=== PATIENT | male | born 1965 ===

== ENCOUNTER 2017-06-14 16:25 | Inpatient (IN) | payer OTHER ==
[~2017-06-14] VITALS: Ht 167.6 cm; Wt 79.6 kg
[~2017-06-14 16:25] MED LIST: Norco 5-325 Ta1 EACH PO
[2017-06-14 17:42] LABS: BASOPHILS ABSOLUTE AUTO 0.03 K/mm3 (0.00-0.23); BASOPHILS PERCENT AUTO 1 % (0-2); EOSINOPHILS PERCENT AUTO 0 % (0-6); Hematocrit 43.5 % (37.0-53.0); Hemoglobin 15.4 g/dL (13.5-17.5); IMMATURE GRAN ABSOLUTE AUTO 0.02 K/mm3 (0.00-0.10); IMMATURE GRAN PERCENT AUTO 0 % (0-1); LYMPHOCYTES ABSOLUTE AUTO 0.49 K/mm3 (0.84-5.20); LYMPHOCYTES PERCENT AUTO 10 % (21-46); MONOCYTES ABSOLUTE AUTO 0.49 K/mm3 (0.16-1.47); MONOCYTES PERCENT AUTO 10 % (4-13); Mean Corpuscular HGB 32.2 pg (26.0-34.0); Mean Corpuscular HGB Conc 35.4 g/dL (31.5-36.5); Mean Corpuscular Volume 91 fL (80-100); Mean Platelet Volume 8.9 fL (9.1-12.4); NEUTROPHILS PERCENT AUTO 80 % (41-73); Red Blood Cell Count 4.78 M/mm3 (4.30-5.90); White Blood Cell Count 5.03 K/mm3 (4.00-11.30)
[2017-06-14 17:55] LABS: Platelet Count 44 K/mm3 (150-400)
[2017-06-14 18:24] LABS: Alanine Aminotransfer (ALT/SGP 71 U/L (12-78); Albumin, Blood 3.7 g/dL (3.4-5.0); Albumin/Globulin Ratio 0.9 (0.8-1.8); Alk Phos 74 U/L (50-136); Anion Gap 10 mmol/L (6-16); Aspartate Aminotrans (AST/SGOT 48 U/L (12-37); Bilirubin, Total 0.8 mg/dL (0.1-1.0); Blood Urea Nitrogen 8 mg/dL (8-24); Bun/Creatinine Ratio 10.1 (12.0-20.0); CO2, Blood 29 mmol/L (21-32); Calcium, Blood 8.5 mg/dL (8.5-10.1); Chloride, Blood 97 mmol/L (98-108); Globulin, Blood 4.1 g/dL (2.2-4.0); Glomerular Filtration Rate >60 (60-); Glucose, Blood 247 mg/dL (70-99); Potassium, Blood 3.5 mmol/L (3.5-5.5); Sodium, Blood 136 mmol/L (136-145); Total Protein, Blood 7.8 g/dL (6.4-8.2)
[2017-06-15 06:03] LABS: Hematocrit 37.4 % (37.0-53.0); Hemoglobin 13.1 g/dL (13.5-17.5); Mean Corpuscular Volume 91 fL (80-100); Mean Platelet Volume 8.9 fL (9.1-12.4); RDW Coefficient Variation 11.8 % (11.7-14.2); RDW Standard Deviation 39.6 fL (35.1-46.3); White Blood Cell Count 5.05 K/mm3 (4.00-11.30)
[2017-06-15 06:09] LABS: Platelet Count 27 K/mm3 (150-400)
[2017-06-15 06:22] LABS: Anion Gap 10 mmol/L (6-16); Blood Urea Nitrogen 6 mg/dL (8-24); Bun/Creatinine Ratio 8.9 (12.0-20.0); CO2, Blood 25 mmol/L (21-32); Calcium, Blood 7.3 mg/dL (8.5-10.1); Chloride, Blood 100 mmol/L (98-108); Creatinine, Blood 0.68 mg/dL (0.60-1.20); Glomerular Filtration Rate >60 (60-); Glucose, Blood 272 mg/dL (70-99); Potassium, Blood 3.5 mmol/L (3.5-5.5); Sodium, Blood 135 mmol/L (136-145)
[2017-06-15 06:47] LABS: BAND PERCENT MAN 7 % (0-8); BASOPHILS PERCENT MAN 0 % (0-2); EOSINOPHILS PERCENT MAN 0 % (0-6); LYMPHOCYTES PERCENT MAN 6 % (21-46); METAMYELOCYTE PERCENT MAN 2 % (0-0); MONOCYTES ABSOLUTE MAN 0.35 K/mm3 (0.16-1.47); MONOCYTES PERCENT MAN 7 % (4-13); NEUTROPHILS ABSOLUTE MAN 4.29 K/mm3 (1.96-9.15); SEG NEUTROPHILS PERCENT MAN 78 % (41-73); TOTAL CELLS COUNTED 100
[2017-06-15 10:25] LABS: Influenza A Negative (NEGATIVE); Influenza B Negative (NEGATIVE)
[2017-06-16 09:41] LABS: Source, Urine Clean Catch
[2017-06-16 09:55] LABS: Bilirubin, Urine Neg (Neg); Blood, Urine 2+ (Neg); Glucose Qualitative, Urine 1+ (Neg); Ketones, Urine Neg (Neg); Leukocyte Esterase, Urine Neg (Neg); Nitrite, Urine Neg (Neg); Protein, Urine 2+ (Neg); Urobilinogen, Urine 2+ (Normal)
[2017-06-16] MEDS ORDERED: CHLO25 PO (10:01)
[2017-06-16 10:02] LABS: Appearance, Urine Clear (Clear); Color, Urine Yellow (P-Yellow)
[2017-06-16] MEDS ORDERED: METO50 PO (10:02)
[2017-06-16] MEDS ORDERED: PANT40 PO (10:03)
[2017-06-16] MEDS ORDERED: SUCR1 PO (10:04)
[2017-06-16 10:08] LABS: Bacteria Not Seen /hpf; Red Blood Cells, Urine 0-2 /hpf (0-2); Squamous Epithelial Cells Not Seen /hpf (Few); White Blood Cells, Urine Not Seen /hpf (0-5)
== END 2017-06-16 10:28 | disposition home or self-care (01) | DRG 392 ==
LOC: ER 16:25 → PCU 22:03 → MEDS 22:03 → PCU 23:34 → MEDS 06-15 11:10 → PCU 06-15 12:10
PROVIDERS: Emergency Medicine; Hospitalist; Internal Medicine
DX: K29.20 Alcoholic gastritis without bleeding (principal); D69.6 Thrombocytopenia, unspecified; F10.239 Alcohol dependence with withdrawal, unspecified; E86.0 Dehydration; Z87.891 Personal history of nicotine dependence; Z91.018 Allergy to other foods
CPT/HCPCS: 36415; 71046; 76705; 80048; 80053; 81001; 82947; 83036; 83690; 85025; 87804; 93005; 93010; 96361; 96365; 96366; 96375; 99285; C9113; J0696; J2060; J2405; J3411; J3475; J7030; J7042

== ENCOUNTER 2019-04-16 16:22 | Emergency (ER) | payer OTHER ==
[~2019-04-16] VITALS: Ht 152.4 cm; Wt 72.6 kg
[~2019-04-16 16:22] MED LIST changes: +CHLO25 PO; +METO50 PO; +PANT40 PO; +SUCR1 PO
== END 2019-04-16 17:05 | disposition left against medical advice (07) ==
LOC: ER 16:22
DX: M25.432 Effusion, left wrist (principal); M25.532 Pain in left wrist; Z53.21 Procedure and treatment not carried out due to patient leaving prior to being seen by health care provider
CPT/HCPCS: 73110; 99283-25

== ENCOUNTER 2019-04-17 00:09 | Emergency (ER) | payer OTHER ==
[~2019-04-17] VITALS: Ht 162.6 cm; Wt 65.8 kg
== END 2019-04-17 01:11 | disposition home or self-care (01) ==
LOC: ER 00:09
DX: S63.502A Unspecified sprain of left wrist, initial encounter (principal); F10.10 Alcohol abuse, uncomplicated; F32.9 Major depressive disorder, single episode, unspecified; E11.9 Type 2 diabetes mellitus without complications; F41.9 Anxiety disorder, unspecified; Z87.891 Personal history of nicotine dependence; W19.XXXA Unspecified fall, initial encounter
CPT/HCPCS: 99283-25; A9270

== ENCOUNTER 2020-02-09 20:45 | Emergency (ER) | payer OTHER ==
[~2020-02-09] VITALS: Ht 167.6 cm; Wt 77.1 kg
[2020-02-09 21:47] LABS: BASOPHILS ABSOLUTE AUTO 0.04 K/mm3 (0.00-0.23); BASOPHILS PERCENT AUTO 1 % (0-2); EOSINOPHILS ABSOLUTE AUTO 0.04 K/mm3 (0.00-0.68); EOSINOPHILS PERCENT AUTO 1 % (0-6); Hematocrit 43.9 % (37.0-53.0); Hemoglobin 15.2 g/dL (13.5-17.5); IMMATURE GRAN ABSOLUTE AUTO 0.05 K/mm3 (0.00-0.10); IMMATURE GRAN PERCENT AUTO 1 % (0-1); LYMPHOCYTES ABSOLUTE AUTO 1.79 K/mm3 (0.84-5.20); LYMPHOCYTES PERCENT AUTO 23 % (21-46); MONOCYTES ABSOLUTE AUTO 0.86 K/mm3 (0.16-1.47); MONOCYTES PERCENT AUTO 11 % (4-13); Mean Corpuscular HGB 32.1 pg (26.0-34.0); Mean Corpuscular HGB Conc 34.6 g/dL (31.5-36.5); Mean Corpuscular Volume 93 fL (80-100); Mean Platelet Volume 9.8 fL (9.1-12.4); NEUTROPHILS ABSOLUTE AUTO 4.99 K/mm3 (1.96-9.15); NEUTROPHILS PERCENT AUTO 64 % (41-73); Platelet Count 70 K/mm3 (150-400); RDW Coefficient Variation 11.7 % (11.7-14.2); RDW Standard Deviation 40.3 fL (35.1-46.3); Red Blood Cell Count 4.74 M/mm3 (4.30-5.90); White Blood Cell Count 7.77 K/mm3 (4.00-11.30)
[2020-02-09 21:55] LABS: Ethanol (Alcohol), Blood, Med <3 mg/dL
[2020-02-09 21:56] LABS: Alanine Aminotransfer (ALT/SGP 50 U/L (12-78); Alk Phos 108 U/L (50-136); Anion Gap 18 mmol/L (6-16); Aspartate Aminotrans (AST/SGOT 64 U/L (12-37); Bilirubin, Total 1.7 mg/dL (0.1-1.0); Blood Urea Nitrogen 6 mg/dL (8-24); Bun/Creatinine Ratio 7.3 (12.0-20.0); CO2, Blood 22 mmol/L (21-32); Calcium, Blood 9.1 mg/dL (8.5-10.1); Chloride, Blood 95 mmol/L (98-108); Creatinine, Blood 0.82 mg/dL (0.60-1.20); Glomerular Filtration Rate >60 (60-); Glucose, Blood 237 mg/dL (70-99); Potassium, Blood 2.9 mmol/L (3.5-5.5); Sodium, Blood 135 mmol/L (136-145)
[2020-02-09 22:55] LABS: U Amphetamine Screen Not Detected; U Barbituate Screen Not Detected; U Benzodiazapine Screen Not Detected; U Buprenorphine Screen Not Detected; U Cannabinoids Screen Not Detected; U Cocaine Screen Not Detected; U Methadone Screen Not Detected; U Methamphetamine Screen Not Detected; U Opiates Screen Not Detected; U Oxycodone Screen Not Detected; U Phencyclidine Screen Not Detected; U Propoxyphene Screen Not Detected
[2020-02-10] MEDS ORDERED: CHLO25 PO (01:08)
== END 2020-02-10 01:38 | disposition home or self-care (01) ==
LOC: ER 20:45
PROVIDERS: Student in an Organized Health Care Education/Training Program
DX: F10.239 Alcohol dependence with withdrawal, unspecified (principal); E86.0 Dehydration; E11.9 Type 2 diabetes mellitus without complications; F17.200 Nicotine dependence, unspecified, uncomplicated; Y90.0 Blood alcohol level of less than 20 mg/100 ml
CPT/HCPCS: 36415; 80053; 85025; 93005; 93010; 96361; 96374; 99285-25; A9270; G0480; J2060; J3411; J3475; J7042

== ENCOUNTER 2021-11-13 09:40 | Inpatient (IN) | payer OTHER ==
[~2021-11-13] VITALS: Ht 167.6 cm; Wt 55.7 kg
[~2021-11-13 09:40] MED LIST changes: +ONDA4ODT MM; +Pepcid20 MG PO
[2021-11-13 10:44] LABS: Hematocrit 39.4 % (37.0-53.0); Hemoglobin 13.9 g/dL (13.5-17.5); Mean Corpuscular HGB 32.6 pg (26.0-34.0); Mean Corpuscular HGB Conc 35.3 g/dL (31.5-36.5); Mean Corpuscular Volume 93 fL (80-100); Mean Platelet Volume 10.5 fL (9.1-12.4); Platelet Count 51 K/mm3 (150-400); RDW Coefficient Variation 12.5 % (11.7-14.2); RDW Standard Deviation 42.8 fL (35.1-46.3); Red Blood Cell Count 4.26 M/mm3 (4.30-5.90); White Blood Cell Count 2.96 K/mm3 (4.00-11.30)
[2021-11-13 10:56] LABS: Albumin, Blood 2.3 g/dL (3.4-5.0); Albumin/Globulin Ratio 0.5 (0.8-1.8); Bilirubin, Total 1.8 mg/dL (0.1-1.0); Bun/Creatinine Ratio 22.1 (12.0-20.0); Calcium, Blood 8.5 mg/dL (8.5-10.1); Creatinine, Blood 0.68 mg/dL (0.60-1.20); Globulin, Blood 4.2 g/dL (2.2-4.0); Potassium, Blood 3.6 mmol/L (3.5-5.5); Total Protein, Blood 6.5 g/dL (6.4-8.2)
[2021-11-13 11:14] LABS: BAND PERCENT MAN 75 % (0-8); BASOPHILS PERCENT MAN 0 % (0-2); EOSINOPHILS PERCENT MAN 0 % (0-6); LYMPHOCYTES PERCENT MAN 7 % (21-46); METAMYELOCYTE ABSOLUTE MAN 0.11 K/mm3 (0.00-0.00); METAMYELOCYTE PERCENT MAN 4 % (0-0); MONOCYTES ABSOLUTE MAN 0.11 K/mm3 (0.16-1.47); MONOCYTES PERCENT MAN 4 % (4-13); MYELOCYTE ABSOLUTE MAN 0.11 K/mm3 (0.00-0.00); MYELOCYTE PERCENT MAN 4 % (0-0); NEUTROPHILS ABSOLUTE MAN 2.39 K/mm3 (1.96-9.15); SEG NEUTROPHILS PERCENT MAN 6 % (41-73); TOTAL CELLS COUNTED 100
[2021-11-13 11:29] LABS: Influenza A, PCR NEGATIVE (NEGATIVE); Influenza B, PCR NEGATIVE (NEGATIVE); Resp Syncytial Virus, PCR NEGATIVE (NEGATIVE); SARS-Cov-2 (COVID-19) PCR, MMC NEGATIVE (NEGATIVE)
[2021-11-13 11:53] LABS: Base Excess Venous -4.9 mmol/L; Bicarbonate Venous 20.2 mmol/L (24.0-30.0); PCO2 Venous 39.6 mmHg (38-42); pH Blood Venous 7.33 (7.34-7.37)
[2021-11-13 13:15] LABS: International Normalized Ratio 1.04; Prothrombin Time Results 10.9 Sec (9.7-11.5)
[2021-11-13 13:15] LABS: Source, Urine Clean Catch
[2021-11-13 13:21] LABS: Appearance, Urine Clear (Clear); Bilirubin, Urine Neg (Neg); Blood, Urine 3+ (Neg); Color, Urine Yellow (P-Yellow); Glucose Qualitative, Urine Neg (Neg); Ketones, Urine 3+ (Neg); Leukocyte Esterase, Urine Neg (Neg); Nitrite, Urine Neg (Neg); Protein, Urine 3+ (Neg); Specific Gravity, Urine 1.015 (1.003-1.022); Urobilinogen, Urine 1+ (Normal)
[2021-11-13 13:32] LABS: Bacteria Few /hpf; Granular Casts 0-2 /lpf (0); Hyaline Casts 0-2 /lpf (0-2); Squamous Epithelial Cells Rare /hpf (Few); White Blood Cells, Urine 0-2 /hpf (0-5)
[2021-11-13 13:38] LABS: U Amphetamine Screen Not Detected; U Barbituate Screen DETECTED; U Benzodiazapine Screen Not Detected; U Buprenorphine Screen Not Detected; U Cannabinoids Screen Not Detected; U Cocaine Screen Not Detected; U Methadone Screen Not Detected; U Methamphetamine Screen Not Detected; U Opiates Screen Not Detected; U Oxycodone Screen Not Detected; U Phencyclidine Screen Not Detected; U Propoxyphene Screen Not Detected
--- NOTE | 2021-11-13 14:53 | NUR ---
ADMIT PT ARRIVED TO ICU 10 VIA ER BED AT 1350. PT ARRIVES ON VENT WITH RT AT BEDSIDE. PT IS RESTLESS AND ATTEMPTS TO REACH FOR ETT. PT NOT REDIRECTABLE. PT TRANSFERED TO ICU BED. PT SEDATED WITH PROPOFOL AT 50 MCG/KG/MIN. LR STARTED AT 150 ML/HR. OGT IN PLACE. ROONEY IN PLACE. PT SPOUSE AT BEDSIDE AT THIS TIME. UPDATED BY THIS RN AND DR SOLIS. WILL CONTINUE TO MONITOR.
--- NOTE | 2021-11-13 17:57 | NUR ---
SHIFT SUMMARY PT REMAINS INTUBATED AND SEDATED. VENT SETTINGS AC 16, TV 400, PEEP 10, FIO2 90%. PT WITH MINIMAL ETT SECRETIONS THIS EVENING. PT SEDATED WITH PROPOFOL AT 50 MCG/KG/MIN. PICC PLACED TO ALTHEA THIS SHIFT. LR INFUSING AT 150 ML/HR. OGT REMAINS IN PLACE, TF STARTED AT 10 ML/HR GOAL RATE. ROONEY IN PLACE WITH DARK YELLOW URINE OUTPUT NOTED. SBW RESTRAINTS REMAIN IN PLACE. PT MED WITH ATIVAN PER EMAR, PT LESS RESTLESS THIS EVENING. PT SPOUSE REMAINS AT BEDSIDE. UPDATED AND EXPLAINED PLAN OF CARE IN DETAIL MULTIPLE TIMES THIS SHIFT. WILL CONTINUE TO MONITOR AND REPORT OFF TO ONCOMING RN.
--- NOTE | 2021-11-13 21:58 | NUR ---
MD SOLIS NOTIFIED CRITICAL RESULTS CALLED FROM LAB
[2021-11-14 03:38] LABS: Hematocrit 30.6 % (37.0-53.0); Mean Corpuscular HGB Conc 35.9 g/dL (31.5-36.5); Mean Corpuscular Volume 92 fL (80-100); Mean Platelet Volume 10.9 fL (9.1-12.4); RDW Coefficient Variation 12.9 % (11.7-14.2); RDW Standard Deviation 43.7 fL (35.1-46.3); Red Blood Cell Count 3.33 M/mm3 (4.30-5.90); White Blood Cell Count 2.11 K/mm3 (4.00-11.30)
[2021-11-14 03:41] LABS: Platelet Count 45 K/mm3 (150-400)
[2021-11-14 04:21] LABS: Magnesium, Blood 1.5 mg/dL (1.6-2.4)
[2021-11-14 04:23] LABS: BAND PERCENT MAN 56 % (0-8); BASOPHILS PERCENT MAN 0 % (0-2); EOSINOPHILS PERCENT MAN 0 % (0-6); LYMPHOCYTES ABSOLUTE MAN 0.21 K/mm3 (0.84-5.20); LYMPHOCYTES PERCENT MAN 10 % (21-46); METAMYELOCYTE ABSOLUTE MAN 0.08 K/mm3 (0.00-0.00); METAMYELOCYTE PERCENT MAN 4 % (0-0); MONOCYTES ABSOLUTE MAN 0.04 K/mm3 (0.16-1.47); MONOCYTES PERCENT MAN 2 % (4-13); MYELOCYTE ABSOLUTE MAN 0.04 K/mm3 (0.00-0.00); MYELOCYTE PERCENT MAN 2 % (0-0); NEUTROPHILS ABSOLUTE MAN 1.73 K/mm3 (1.96-9.15); SEG NEUTROPHILS PERCENT MAN 26 % (41-73); TOTAL CELLS COUNTED 100
[2021-11-14 04:47] LABS: Albumin, Blood 1.5 g/dL (3.4-5.0); Albumin/Globulin Ratio 0.5 (0.8-1.8); Bilirubin, Total 1.3 mg/dL (0.1-1.0); Bun/Creatinine Ratio 24.5 (12.0-20.0); Calcium, Blood 6.7 mg/dL (8.5-10.1); Creatinine, Blood 0.78 mg/dL (0.60-1.20); Globulin, Blood 2.9 g/dL (2.2-4.0); Phosphorus, Blood 1.7 mg/dL (2.5-4.9); Potassium, Blood 2.9 mmol/L (3.5-5.5)
[2021-11-14 04:48] LABS: Total Protein, Blood 4.4 g/dL (6.4-8.2)
[2021-11-14 05:03] LABS: PCO2 Arterial 37.4 mmHg (35-45); PO2 Arterial 77.3 mmHg (80-100); pH Blood Arterial 7.45 (7.35-7.45)
--- NOTE | 2021-11-14 06:02 | NUR ---
SEDATED/INTUBATED, PERRLA. LEVOPHED TITRATED TO SYSTOLIC ABOVE 90. VENT MANAGED BY RT. SCANT TO NO ET OR ORAL SECRETIONS. TRICKLE FEED TOLERATING WELL. ROONEY FOR ACCURATE UO. Q2 TURNS BONY PROMINENCES OFFLOADED AND PROTECTED.
--- NOTE | 2021-11-14 07:31 | NUR ---
ASSUME CARE: I have assumed care of this patient.
[2021-11-14 16:00] LABS: Vancomycin, Trough 15.5 ug/mL (5.0-10.0)
--- NOTE | 2021-11-14 16:09 | NUR ---
Spiritual Care - Nurse/Pt. Request Pt. is intubated and non responsive. Spouse is present. Facilitated a life review with spouse, and at the spouses request prayed for the Pt. Spouse displayed evidence of engagement and trust. Spouse verbalized gratitude for the spiritual care visit.
--- NOTE | 2021-11-14 19:21 | NUR ---
SHIFT SUMMARY: NEURO: sedated on 55 propofol. pupils PERLLA. one dose of PRN ativan 2mg given. CARDIAC: sinus tachy. currently on 2 mcg/min of levophed RESPIRATORY: FiO2 currently at 70%. GI/: 850mls rosmery urine out of dickerson. rectal tube placed for liquid stool PSYCH/SOCIAL: at bedside and supportive throughout the day.
[2021-11-15 02:11] LABS: Hematocrit 29.8 % (37.0-53.0); Hemoglobin 10.9 g/dL (13.5-17.5); Mean Corpuscular HGB 33.5 pg (26.0-34.0); Mean Corpuscular HGB Conc 36.6 g/dL (31.5-36.5); Mean Corpuscular Volume 92 fL (80-100); Mean Platelet Volume 12.3 fL (9.1-12.4); NRBC ABSOLUTE 0.03 K/mm3 (0.00-0.02); NRBC Auto 0.6 /100 WBC (0.0-0.2); RDW Coefficient Variation 13.2 % (11.7-14.2); RDW Standard Deviation 44.1 fL (35.1-46.3); Red Blood Cell Count 3.25 M/mm3 (4.30-5.90); White Blood Cell Count 4.98 K/mm3 (4.00-11.30)
[2021-11-15 02:20] LABS: Platelet Count 48 K/mm3 (150-400)
[2021-11-15 02:32] LABS: Albumin, Blood 1.2 g/dL (3.4-5.0); Albumin/Globulin Ratio 0.4 (0.8-1.8); BAND PERCENT MAN 32 % (0-8); BASOPHILS PERCENT MAN 0 % (0-2); Bilirubin, Total 1.9 mg/dL (0.1-1.0); Bun/Creatinine Ratio 26.3 (12.0-20.0); Calcium, Blood 6.9 mg/dL (8.5-10.1); Creatinine, Blood 0.68 mg/dL (0.60-1.20); EOSINOPHILS ABSOLUTE MAN 0.09 K/mm3 (0.00-0.68); EOSINOPHILS PERCENT MAN 2 % (0-6); LYMPHOCYTES ABSOLUTE MAN 0.14 K/mm3 (0.84-5.20); LYMPHOCYTES PERCENT MAN 3 % (21-46); METAMYELOCYTE ABSOLUTE MAN 0.09 K/mm3 (0.00-0.00); METAMYELOCYTE PERCENT MAN 2 % (0-0); MONOCYTES ABSOLUTE MAN 0.14 K/mm3 (0.16-1.47); MONOCYTES PERCENT MAN 3 % (4-13); MYELOCYTE ABSOLUTE MAN 0.14 K/mm3 (0.00-0.00); MYELOCYTE PERCENT MAN 3 % (0-0); Magnesium, Blood 1.7 mg/dL (1.6-2.4); NEUTROPHILS ABSOLUTE MAN 4.33 K/mm3 (1.96-9.15); Potassium, Blood 3.3 mmol/L (3.5-5.5); SEG NEUTROPHILS PERCENT MAN 55 % (41-73); TOTAL CELLS COUNTED 100; Total Protein, Blood 4.2 g/dL (6.4-8.2)
--- NOTE | 2021-11-15 06:43 | NUR ---
UNEVENTFUL NIGHT. INTUBATED/SEDATED. LEVO TITRATED OFF. LUNGS CLEAR VENT MANAGED BY RT. TF AT GOAL. RECTAL TUBE IN PLACE. HYPOACTIVE BT ALL QUAD. ROONEY FOR ACCURATE UO. Q2 TURNS BONY PROMINENCES OFFLOADED AND PROTECTED. SCD ON. ELECTROLYTE REPLACED PER
--- NOTE | 2021-11-15 08:03 | NUR ---
ASSUMED CARE PT. REMAINS SEDATED AND INTUBATED AT THIS TIME. PT. S/O SLEEPING AT BEDSIDE. PT. WITHDRAWLS FROM PAINFUL STIMULI, AND GRIMACE NOTED WITH ORAL CARE. BILAT WRIST RESTRAINTS IN PLACE TO PROTECT TUBES AND LINES. PT. VSS THIS AM, LEVOPHED GTT TITRATED OFF ON NOC SHIFT. PT. CONTINUES WITH PROPOFOL INFUSING FOR SEDATION. ROONEY TEMP PROBE IN PLACE, AFEBRILE THIS AM. CLEAR RACQUEL URINE DRAINING TO GRAIVTY. RECTAL TUBE IN PLACE, DRAINING DARK BROWN LIQUID STOOL. ALL NEEDS MET AT THIS TIME.
--- NOTE | 2021-11-15 10:00 | NUR ---
DR. FLORES IN TO EVAL PT. PEEP DECREASED TO [address] FLORES, PT TOLERATING WELL. FIO2 REMAINS AT 45%. PT. UPDATED ON PT CONDITION AND PLAN OF CARE. VSS AT THIS TIME.
[2021-11-15 14:18] LABS: Phosphorus, Blood 1.7 mg/dL (2.5-4.9); Potassium, Blood 3.3 mmol/L (3.5-5.5)
--- NOTE | 2021-11-15 15:26 | NUR ---
DECREASED SEDATION PROPOFOL PLACED ON STAND BY FOR NEURO EVAL, PT ATTEMPTING TO OPEN EYES, TREMORS NOTED TO BILAT UE. PT UNABLE TO FOLLOW MOZAMBICAN AND YORUBA COMMANDS AT THIS TIME. HR INCREASING AND RR INCREASING TO MID 30S. PT PROPOFOL RESTARTED AFTER 60MIN.
--- NOTE | 2021-11-15 17:58 | NUR ---
SHIFT SUMMARY PT REMAINS SEDATED AND INTUBATED. NO ACUTE CHANGES T/O SHIFT. PT. REMAINS OFF OF PRESSORS AND ANTIBIOTICS CHANGED PER DR. FLORES. PT. VSS T/O SHIFT. ROONEY REMAINS IN PLACE FOR ACCURATE I&O DRAINING TO GRAVITY, RECTAL TUBE IN PLACE CONTINUES WITH LIQUID STOOL. TF INFUSING. FAMILY AT BEDSIDE T/O DAY. REPORT TO ONCOMING RN.
[2021-11-16 04:27] LABS: BASOPHILS ABSOLUTE AUTO 0.07 K/mm3 (0.00-0.23); BASOPHILS PERCENT AUTO 1 % (0-2); Hematocrit 31.3 % (37.0-53.0); Mean Corpuscular HGB 32.4 pg (26.0-34.0); Mean Corpuscular HGB Conc 35.1 g/dL (31.5-36.5); Mean Corpuscular Volume 92 fL (80-100); Mean Platelet Volume 11.4 fL (9.1-12.4); Platelet Count 52 K/mm3 (150-400); RDW Coefficient Variation 13.7 % (11.7-14.2); RDW Standard Deviation 46.6 fL (35.1-46.3); Red Blood Cell Count 3.39 M/mm3 (4.30-5.90); White Blood Cell Count 6.59 K/mm3 (4.00-11.30)
[2021-11-16 04:35] LABS: EOSINOPHILS ABSOLUTE AUTO 0.04 K/mm3 (0.00-0.68); EOSINOPHILS PERCENT AUTO 1 % (0-6); IMMATURE GRAN ABSOLUTE AUTO 0.62 K/mm3 (0.00-0.10); IMMATURE GRAN PERCENT AUTO 9 % (0-1); LYMPHOCYTES ABSOLUTE AUTO 0.42 K/mm3 (0.84-5.20); LYMPHOCYTES PERCENT AUTO 6 % (21-46); MONOCYTES ABSOLUTE AUTO 0.18 K/mm3 (0.16-1.47); MONOCYTES PERCENT AUTO 3 % (4-13); NEUTROPHILS ABSOLUTE AUTO 5.26 K/mm3 (1.96-9.15); NEUTROPHILS PERCENT AUTO 80 % (41-73)
[2021-11-16 04:42] LABS: Albumin, Blood 1.2 g/dL (3.4-5.0); Albumin/Globulin Ratio 0.4 (0.8-1.8); Bilirubin, Total 1.9 mg/dL (0.1-1.0); Bun/Creatinine Ratio 30.3 (12.0-20.0); Calcium, Blood 7.3 mg/dL (8.5-10.1); Creatinine, Blood 0.66 mg/dL (0.60-1.20); Globulin, Blood 3.4 g/dL (2.2-4.0); Magnesium, Blood 1.5 mg/dL (1.6-2.4); Phosphorus, Blood 1.9 mg/dL (2.5-4.9); Potassium, Blood 3.6 mmol/L (3.5-5.5); Total Protein, Blood 4.6 g/dL (6.4-8.2)
[2021-11-16 05:35] LABS: BAND PERCENT MAN 7 % (0-8); BASOPHILS PERCENT MAN 0 % (0-2); EOSINOPHILS PERCENT MAN 0 % (0-6); LYMPHOCYTES ABSOLUTE MAN 0.32 K/mm3 (0.84-5.20); LYMPHOCYTES PERCENT MAN 5 % (21-46); METAMYELOCYTE ABSOLUTE MAN 0.13 K/mm3 (0.00-0.00); METAMYELOCYTE PERCENT MAN 2 % (0-0); MONOCYTES ABSOLUTE MAN 0.13 K/mm3 (0.16-1.47); MONOCYTES PERCENT MAN 2 % (4-13); NEUTROPHILS ABSOLUTE MAN 5.99 K/mm3 (1.96-9.15); SEG NEUTROPHILS PERCENT MAN 84 % (41-73); TOTAL CELLS COUNTED 100
--- NOTE | 2021-11-16 06:36 | NUR ---
INTUBATED/SEDATED. SEDATION TITRATED DOWN TOLERATED. LUNGS CLEAR VENT MANAGED BY RT. TF AT GOAL. RECTAL TUBE IN PLACE. HYPOACTIVE BT ALL QUAD. ROONEY FOR ACCURATE UO. Q2 TURNS BONY PROMINENCES OFFLOADED AND PROTECTED. SCD ON.
--- NOTE | 2021-11-16 09:00 | NUR ---
ASSUMED CARE OF PT THIS AM PT. REMAINS SEDATED AND INTUBATED. PT. PROPOFOL CURRENTLY REDUCED AND INFUSING AT 25MCG/KG/HR. PT. GRIMACES WITH ORAL CARE. PT. VSS THIS AM. FAMILY REMAIN AT BEDSIDE. BILAT WRIST RESTRAINTS IN PLACE FOR SAFETY WITH ETT. PT. HAS OG IN INFUSING TF WITH MINIMAL RESIDUAL <10ML REINSTILLED THIS AM. ORAL TEMP PROBE IN PLACE, TEMP 100.1 THIS AM, TYLENOL GIVEN PER DRPamella ORDER. PT. CONTINUES WITH RECTAL TUBE DRAINING LIQUID BROWN STOOL AND ROONEY DRAINING RACQUEL URINE TO GRAVITY.
--- NOTE | 2021-11-16 17:49 | NUR ---
SHIFT SUMMARY PT. REMAINS SEDATED AND INTUBATED. PROPOFOL CONTINUES INFUSING AT 20MCG/KG/MIN. PT. GRIMACES AND OCCCASIONALLY COUGHS BUT APPEARS COMFORTABLE. NEW SET OF BLOOD CULTURES DRAWN THIS SHIFT. PT. TMAX 101.1, TYLENOL ADMIN TWICE THIS SHIFT AND FAN PLACED AT BEDSIDE. FIO2 DECREASED TO 30% THIS SHIFT, ALL OTHER VENT SETTINGS UNCHANGED, INCREASED SPUTUM SUCTIONED THIS SHIFT FROM ETT. ALL NEEDS MET AT THIS TIME. REPORT TO ONCOMING RN.
[2021-11-17 04:15] LABS: Hematocrit 30.8 % (37.0-53.0); Mean Corpuscular HGB Conc 35.7 g/dL (31.5-36.5); Mean Corpuscular Volume 93 fL (80-100); Mean Platelet Volume 11.4 fL (9.1-12.4); Platelet Count 62 K/mm3 (150-400); RDW Coefficient Variation 14.2 % (11.7-14.2); RDW Standard Deviation 48.5 fL (35.1-46.3); Red Blood Cell Count 3.33 M/mm3 (4.30-5.90); White Blood Cell Count 8.79 K/mm3 (4.00-11.30)
[2021-11-17 04:37] LABS: Bun/Creatinine Ratio 32.4 (12.0-20.0); Calcium, Blood 7.3 mg/dL (8.5-10.1); Creatinine, Blood 0.56 mg/dL (0.60-1.20); Magnesium, Blood 1.4 mg/dL (1.6-2.4); Phosphorus, Blood 2.6 mg/dL (2.5-4.9)
[2021-11-17 04:59] LABS: BAND PERCENT MAN 14 % (0-8); BASOPHILS PERCENT MAN 0 % (0-2); EOSINOPHILS PERCENT MAN 0 % (0-6); LYMPHOCYTES ABSOLUTE MAN 0.43 K/mm3 (0.84-5.20); LYMPHOCYTES PERCENT MAN 5 % (21-46); MONOCYTES ABSOLUTE MAN 0.26 K/mm3 (0.16-1.47); MONOCYTES PERCENT MAN 3 % (4-13); NEUTROPHILS ABSOLUTE MAN 8.08 K/mm3 (1.96-9.15); SEG NEUTROPHILS PERCENT MAN 78 % (41-73); TOTAL CELLS COUNTED 100
--- NOTE | 2021-11-17 06:13 | NUR ---
REMAINED INTUBATED/SEDATED. SEDATION TITRATED TO COMFORT. FAMILY ROOMING IN OVERNIGHT. NORMOTENSIVE AFEBRILE NON-PITTING EDEMA. TF AT GOAL. RECTAL TUBE W/LIQUID BROWN STOOL. ROONEY FOR ACCURATE UO. Q2 TURNS BONY PROMINENCES OFFLOADED AND PROTECTED. DR. HANNA AT BEDSIDE. UPDATED ON PT CONDITION. VERBAL ORDER TITRATE SEDATION TO VENT COMPLIANCE.
--- NOTE | 2021-11-17 08:38 | NUR ---
ASSUMED CARE OF PT THIS AM PT INTUBATED AND SEDATED ON 25MCG/KG/MIN OF PROPOFOL. GRIMACES WITH ORAL CARE, DOES NOT FOLLOW COMMANDS OR OPEN EYES AT THIS TIME. CONTINUES WITH THICK BROWN SECREATIONS FROM ETT. OG TUBE IN PLACE, INFUSING TUBE FEEDING AT GOAL. PT. CONTINUES WITH RECTAL TUBE DRAINING LIQUID STOOL AND ROONEY DRAINING TO GRAVITY. TEMP OF 99.2 THIS AM. VSS. NADN. SLEEPING AT BEDSIDE.
--- NOTE | 2021-11-17 18:09 | NUR ---
SHIFT SUMMARY PT. REMAINS SEDATED AND INTUBATED. VENT SETTINGS ADJUSTED BY DR. HANNA THIS SHIFT, TV 500, PEEP 5, FIO2 30%. PT. TOLERATING WELL. TUBE FEEDING INCREASED TO 40ML/HR PER ORDER. NO ACUTE CHANGES T/O SHIFT. REPORT TO ONCOMING RN.
--- NOTE | 2021-11-18 02:15 | NUR ---
SEDATION PAUSED AROUND 0200 FOR NEURO EVAL NURSING NOTED PT STARTING TO OPEN EYES. SPOUSE AT BEDSIDE - FOLLOWING COMMMANDS - WEAK BILATERAL HAND DEVELOPMENT GEOLOGIST/MOVED TOES ON COMMAND/TRACK SOUNDS WITH VOICE. PT CALM & COOPERATIVE. NO SIGNS OF DISTRESS NOTED AT THIS TIME.
--- NOTE | 2021-11-18 02:26 | NUR ---
SEDATION DECREASED AROUND 0140 FOR NEURO EVAL NURSING NOTED PT STARTING TO OPEN EYES. SPOUSE AT BEDSIDE - FOLLOWING COMMMANDS - WEAK BILATERAL HAND FIBERGLASS BOAT PARTS FINISHER/MOVED TOES ON COMMAND/TRACK SOUNDS WITH VOICE. PT CALM & COOPERATIVE. NO SIGNS OF DISTRESS NOTED AT THIS TIME.
[2021-11-18 04:28] LABS: Hemoglobin 9.7 g/dL (13.5-17.5); Mean Corpuscular HGB 32.6 pg (26.0-34.0); Mean Corpuscular HGB Conc 34.6 g/dL (31.5-36.5); Mean Corpuscular Volume 94 fL (80-100); Mean Platelet Volume 11.1 fL (9.1-12.4); Platelet Count 88 K/mm3 (150-400); RDW Coefficient Variation 14.4 % (11.7-14.2); RDW Standard Deviation 49.7 fL (35.1-46.3); Red Blood Cell Count 2.98 M/mm3 (4.30-5.90); White Blood Cell Count 10.62 K/mm3 (4.00-11.30)
[2021-11-18 04:47] LABS: Albumin/Globulin Ratio 0.3 (0.8-1.8); Bilirubin, Total 2.1 mg/dL (0.1-1.0); Bun/Creatinine Ratio 39.6 (12.0-20.0); Calcium, Blood 7.4 mg/dL (8.5-10.1); Creatinine, Blood 0.53 mg/dL (0.60-1.20); Globulin, Blood 3.8 g/dL (2.2-4.0); Magnesium, Blood 1.4 mg/dL (1.6-2.4); Phosphorus, Blood 2.7 mg/dL (2.5-4.9); Potassium, Blood 3.8 mmol/L (3.5-5.5); Total Protein, Blood 4.8 g/dL (6.4-8.2)
[2021-11-18 04:53] LABS: BAND PERCENT MAN 2 % (0-8); BASOPHILS PERCENT MAN 0 % (0-2); EOSINOPHILS PERCENT MAN 0 % (0-6); LYMPHOCYTES ABSOLUTE MAN 0.42 K/mm3 (0.84-5.20); LYMPHOCYTES PERCENT MAN 4 % (21-46); METAMYELOCYTE ABSOLUTE MAN 0.21 K/mm3 (0.00-0.00); METAMYELOCYTE PERCENT MAN 2 % (0-0); MONOCYTES PERCENT MAN 0 % (4-13); MYELOCYTE PERCENT MAN 1 % (0-0); NEUTROPHILS ABSOLUTE MAN 9.87 K/mm3 (1.96-9.15); SEG NEUTROPHILS PERCENT MAN 91 % (41-73); TOTAL CELLS COUNTED 100
--- NOTE | 2021-11-18 06:20 | NUR ---
INTUBATED/SEDATED. NON-PITTING EDEMA. PRN TYLENOL FOR FEVER - EFFECTIVE. VENT MANAGED BY RT. SCANT SECRETION ET/ORAL SECRETIONS. TF AT GOAL LIQUID STOOL IN RECTAL TUBE. ROONEY FOR ACCURATE UO. Q2 TURNS BONY PROMINENCES OFFLOADED AND PROTECTED. VTE SCD
[2021-11-18 14:12] LABS: C DIFFICILE DNA NEGATIVE (Negative)
--- NOTE | 2021-11-18 15:47 | NUR ---
Spiritual Care attempted. Pt. is intubated and nonresponsive and no visitors are present.
--- NOTE | 2021-11-18 18:00 | NUR ---
SHIFT SUMMARY PT REMAINS INTUBATED WITH VENT SETTINGS AC 16, TV 500, PEEP 5, FIO2 30%. PT WITH COPIOUS ORAL AND ETT SECRETIONS THIS SHIFT. PROPOFOL ON STANDBY SINCE THIS AM. PT HAS REMAINED DROWSEY, BUT DOES AWAKEN TO VERBAL STIMULI. PT ABLE TO SQUEEZE HANDS UPON COMMAND. OGT REMAINS IN PLACE WITH TF INFUSING AT 50 ML/HR GOAL RATE. PICC TO ALTHEA REMAINS C/D/I, NS INFUSING TKO. ROONEY REMAINS IN PLACE WITH LARGE VOLUME OF CLEAR/RACQUEL URINE OUTPUT NOTED. RECTAL TUBE REMAINS IN PLACE WITH LIQUID BROWN OUTPUT NOTED. PT SPOUSE AND OTHER FAMILY MEMBERS AT BEDSIDE THROUGHOUT THE SHIFT. SBW RESTRAINTS REMAIN IN PLACE. VITAL SIGNS STABLE. WILL CONTINUE TO MONITOR AND REPORT OFF TO ONCOMING RN.
--- NOTE | 2021-11-18 19:30 | NUR ---
ASSUMED CARE PT CALM/COOPERATIVE BUT DROWSY. . TKO RUNNING, PROPOFOL ON STANDBY. ROOMING IN. O2 SAT 89%. RT AT BEDSIDE TITRATING FIO2. NO SIGNS OF DISTRESS. PT DENIES PAIN.
[2021-11-18 20:40] LABS: Source, Urine Foley catheter
[2021-11-18 20:43] LABS: Blood, Urine 2+ (Neg); Color, Urine Amber (P-Yellow); Glucose Qualitative, Urine 1+ (Neg); Ketones, Urine Neg (Neg); Leukocyte Esterase, Urine 1+ (Neg); Nitrite, Urine Neg (Neg); Protein, Urine 2+ (Neg); Specific Gravity, Urine 1.015 (1.003-1.022); Urobilinogen, Urine 1+ (Normal)
[2021-11-18 20:44] LABS: Bilirubin, Urine 2+ (Neg)
[2021-11-18 20:49] LABS: Appearance, Urine Hazy (Clear)
[2021-11-18 20:50] LABS: Hyaline Casts 0-2 /lpf (0-2)
[2021-11-18 20:51] LABS: Amorphous Light (0-Heavy); Bacteria Mod /hpf; Red Blood Cells, Urine 0-2 /hpf (0-2); Squamous Epithelial Cells Not Seen /hpf (Few)
--- NOTE | 2021-11-18 21:52 | NUR ---
PT BODY TEMP TRENDED UP TO 101.3 BED BATH PERFORMED. VIC HUGGER IN PLACE NOW. INTERVENTON EFFECTIVE - TEMP TRENDING DOWN
[2021-11-19 03:30] LABS: BASOPHILS ABSOLUTE AUTO 0.05 K/mm3 (0.00-0.23); BASOPHILS PERCENT AUTO 0 % (0-2); EOSINOPHILS ABSOLUTE AUTO 0.04 K/mm3 (0.00-0.68); EOSINOPHILS PERCENT AUTO 0 % (0-6); Hematocrit 27.4 % (37.0-53.0); Hemoglobin 9.3 g/dL (13.5-17.5); IMMATURE GRAN ABSOLUTE AUTO 0.71 K/mm3 (0.00-0.10); IMMATURE GRAN PERCENT AUTO 5 % (0-1); LYMPHOCYTES ABSOLUTE AUTO 0.87 K/mm3 (0.84-5.20); LYMPHOCYTES PERCENT AUTO 7 % (21-46); MONOCYTES ABSOLUTE AUTO 0.38 K/mm3 (0.16-1.47); MONOCYTES PERCENT AUTO 3 % (4-13); Mean Corpuscular HGB 32.3 pg (26.0-34.0); Mean Corpuscular HGB Conc 33.9 g/dL (31.5-36.5); Mean Corpuscular Volume 95 fL (80-100); NEUTROPHILS ABSOLUTE AUTO 10.99 K/mm3 (1.96-9.15); NEUTROPHILS PERCENT AUTO 84 % (41-73); Platelet Count 125 K/mm3 (150-400); RDW Coefficient Variation 14.1 % (11.7-14.2); RDW Standard Deviation 49.3 fL (35.1-46.3); Red Blood Cell Count 2.88 M/mm3 (4.30-5.90); White Blood Cell Count 13.04 K/mm3 (4.00-11.30)
[2021-11-19 03:51] LABS: Magnesium, Blood 1.5 mg/dL (1.6-2.4)
[2021-11-19 03:52] LABS: Bun/Creatinine Ratio 39.9 (12.0-20.0); Calcium, Blood 7.6 mg/dL (8.5-10.1); Creatinine, Blood 0.63 mg/dL (0.60-1.20); Phosphorus, Blood 2.7 mg/dL (2.5-4.9); Potassium, Blood 3.6 mmol/L (3.5-5.5)
--- NOTE | 2021-11-19 05:38 | NUR ---
INTUBATED. AGITATION & PAIN MANAGED ON PRN - EFFECTIVE. FOLLOWING COMMANDS GENERALIZED WEAKNESS. COLLEGE SERVICE OFFICER EQUAL BILATERAL. FEBRILE - PRN TYLENOL, BED BATH, COOL AIR INTERVENTIONS. MD MADE AWARE AT BEDSIDE - GALVAN CULTURE SENT. ABX CHANGED. SCANT ET SECRETIONS, COPIOUS ORAL SECRETIONS. TF AT GOAL 50 ML/HR. HYPOACTIVE BT ALL QUAD. RECTAL TUBE BAG CHANGED 1000CC BROWN LIQUID STOOL. ROONEY DRAINING RACQUEL URINE. VTE LOVENOX. BED BATH BARRIER CREAM Q2 TURNS BONY PROMINENCES OFFLOADED AND PROTECTED. FAMILY ROOMING IN OVERNIGHT - CALM COOPERATIVE IN PT CARE
--- NOTE | 2021-11-19 08:18 | NUR ---
ASSUMED CARE PT. REMAINS INTUBATED, NO PROPOFOL AT THIS TIME, DR. FLORES IN THIS AM TO ASSESS PT, ORDER PLACED FOR PRECEDEX GTT FOR VENT COMPLIANCE. CONTINUES WITH LARGE AMT OF ORAL SECREATIONS. MINIMAL SECREATIONS FROM ETT. PT TEMP 100.8 THIS AM, TYLENOL GIVEN THIS AM, AND FAN PLACED AT BEDSIDE. RECTAL TUBE DRAINING LARGE AMT OF LIQUID STOOL, OG TUBE REMAINS IN PLACE WITH TF VHP AT GOAL OF 50ML/HR. PT ALSO HAS ROONEY DRAINING RACQUEL URINE TO GRAVITY. ALL NEEDS MET AT THIS TIME, PT SLEEPING AT BEDSIDE.
[2021-11-19 09:17] LABS: Albumin/Globulin Ratio 0.2 (0.8-1.8); Bilirubin, Direct 1.5 mg/dL (0.0-0.3); Bilirubin, Indirect 0.5 mg/dL (0.1-0.7)
--- NOTE | 2021-11-19 11:17 | NUR ---
Pt. is sleeping and is not responsive. Spouse is present and welcomes my visit. Spouse is unsettled by the difficult day the pt. had the day before. Pt. had presented a fever on Wednesday. Pt. temps are near normal. Facilitated a life review and assessed family/emotional support for the Pt. and spouse. Spouse displayed evidence of engagement but some anxiety regarding the Pts. condition. Prayed for Pt. and spouse. Spouse verbalized gratitude for the spiritual care visit.
--- NOTE | 2021-11-19 13:24 | NUR ---
ASSUMPTION OF CARE RECEIVED REPORT FROM TIA ASTORGA, ASSUMED CARE OF PATIENT. PATIENT INTUBATED WITH VENT SETTINGS AC 16/500/5/40% WITH SP02 ABOVE 90%. PATIENT COUGHING WITH COPIOUS AMOUNTS OF THICK, WHITE SECRETIONS VIA ETT AND ORALLY SUCTIONED. TF INFUSING, CHANGED TO PIVOT 1.5 WITH RATE AT 25ML/HR AT 1315 PER NEW ORDERS. PRECEDEX INFUSING AT 0.7MCG/KG. ROONEY PATENT AND DRAINING CLEAR, RACQUEL URINE. RECTAL TUBE IN PLACE WITH BROWN, LIQUID DRAINAGE. WILL REVIEW ORDERS AND TREAT PRESCRIBED.
--- NOTE | 2021-11-19 16:20 | NUR ---
REASSESSMENT NO ACUTE CHANGES. FIO2 AT 45% AFTER PERIOD OF SATS IN HIGH 80'S. CURRENTLY ABOVE 90%. CONTINUE TO SUCTION COPIOUS AMOUNTS OF THICK, WHITE SECRETIONS. PIVOT 1.5 AT 25ML/HR CONTINUES VIA OG WITH RESIDUALS OF 30ML REFED. PATIENT OPENS EYES, STRONG COUGH, FURROWED BROW AND BP ELEVATING. FENTANYL GIVEN, WILL REASSESS EFFECT.
[2021-11-19 20:39] LABS: Vancomycin, Trough 15.1 ug/mL (5.0-10.0)
--- NOTE | 2021-11-19 21:32 | NUR ---
ASSUMPTION OF CARE ASSUMED CARE FOR PT. AT 1900. PT. WAS DESATTING UPON NURSE ARRIVAL TO 86%, I SUCTIONED AND BUMPED 02 UP TO 50% FROM 45% AND PT. SATS CAME UP TO 93%. PT. WAS OTHERWISE IN NO DISTRESS, ASSESSMENT FINDINGS DOCUMENTED IN CHART.
[2021-11-20 03:50] LABS: BASOPHILS ABSOLUTE AUTO 0.05 K/mm3 (0.00-0.23); BASOPHILS PERCENT AUTO 0 % (0-2); EOSINOPHILS ABSOLUTE AUTO 0.08 K/mm3 (0.00-0.68); EOSINOPHILS PERCENT AUTO 0 % (0-6); Hematocrit 26.3 % (37.0-53.0); Hemoglobin 9.1 g/dL (13.5-17.5); IMMATURE GRAN ABSOLUTE AUTO 0.51 K/mm3 (0.00-0.10); IMMATURE GRAN PERCENT AUTO 3 % (0-1); LYMPHOCYTES ABSOLUTE AUTO 0.78 K/mm3 (0.84-5.20); LYMPHOCYTES PERCENT AUTO 4 % (21-46); MONOCYTES ABSOLUTE AUTO 0.52 K/mm3 (0.16-1.47); MONOCYTES PERCENT AUTO 3 % (4-13); Mean Corpuscular HGB 32.9 pg (26.0-34.0); Mean Corpuscular HGB Conc 34.6 g/dL (31.5-36.5); Mean Corpuscular Volume 95 fL (80-100); Mean Platelet Volume 10.9 fL (9.1-12.4); NEUTROPHILS ABSOLUTE AUTO 16.09 K/mm3 (1.96-9.15); NEUTROPHILS PERCENT AUTO 89 % (41-73); Platelet Count 176 K/mm3 (150-400); RDW Coefficient Variation 13.6 % (11.7-14.2); RDW Standard Deviation 48.4 fL (35.1-46.3); Red Blood Cell Count 2.77 M/mm3 (4.30-5.90); White Blood Cell Count 18.03 K/mm3 (4.00-11.30)
[2021-11-20 04:08] LABS: International Normalized Ratio 1.05
[2021-11-20 04:21] LABS: Albumin/Globulin Ratio 0.2 (0.8-1.8); Bilirubin, Total 1.7 mg/dL (0.1-1.0); Bun/Creatinine Ratio 33.6 (12.0-20.0); Calcium, Blood 7.3 mg/dL (8.5-10.1); Creatinine, Blood 0.65 mg/dL (0.60-1.20); Globulin, Blood 4.1 g/dL (2.2-4.0); Magnesium, Blood 1.6 mg/dL (1.6-2.4); Phosphorus, Blood 2.5 mg/dL (2.5-4.9); Potassium, Blood 3.5 mmol/L (3.5-5.5); Total Protein, Blood 5.1 g/dL (6.4-8.2)
--- NOTE | 2021-11-20 05:19 | NUR ---
ATTEMPTED WEAN WITH PT THIS MORNING, PT STARTED ON PS OF 15 WAS ONLY ABLE TO PULL TIDAL VOLUMES OF 270S ON THIS TITRATED UP TO PS OF 20 WITH VTS BEING HIGH 300S BUT PT RESPIRATIONS IMMEDIATELY CLIMED INTO THE LOW 40S WITH PT SPO2 STARTING TO DECLINE ON 55% FIO2 WITHOUT GOING BELOW 90 BEFORE WEAN WAS TERMINATED AND PLACED BACK ON PREVIOUS AC SETTINGS. NO DISTRESS NOTED POST ATTEMPT.
--- NOTE | 2021-11-20 05:58 | NUR ---
SHIFT SUMMARY: PT. DID WELL OVERNIGHT, BUT WOULD WAKE UP REGULARLY AND FIGHT THE VENTILATOR SO PUSHES WERE GIVEN TO MAINTAIN VENT COMPLIANCE. PRECEDEX TITRATED DOWN THIS AM FOR RESPIRATORY TO TRY PT. ON SPONTANEOUS BREATHING TRIAL. PT. HR AND BP WERE WNL ALL NIGHT AND PT. STAYED IN NSR. PT. O2 REQUIREMENTS CAME UP OVERNIGHT FROM 40% TO 55% BECAUSE PT. KEPT WAKING UP AND DESATTING. BG HAVE BEEN IN THE 200S AND WERE TREATED PER EMAR. TF ADVANCED, NOT YET AT GOAL BUT RESIDUALS HAVE REMAINED BELOW 100ML ALL NIGHT. BED BATH WAS GIVEN AND ROONEY CARE DONE, ROONEY STILL PATENT WITH 550 UOP. RECTAL TUBE STILL IN PLACE AND DRAINING LESS THAN 50MLS OF OUTPUT. PT. DID HAVE A POSITIVE BLOOD CULTURE COME BACK FOR GRAM + COCCI IN CLUSTERS. PT. RESTING AT THIS TIME.
--- NOTE | 2021-11-20 07:25 | NUR ---
ASSUMPTION OF CARE RECEIVED REPORT FROM SY ASTORGA, ASSUMED CARE OF PATIENT. PATIENT INTUBATED WITH ETT 8.0, 24CM AT THE LIP. VENT SETTINGS AC 16/500/10/60%, SUCTIONED COPIOUS AMOUNTS OF THICK, WHITE SECRETIONS VIA ETT AND ORALLY. TUBE FEEDS PIVOT 1.5 AT 35ML/HR, WILL ADVANCE TO GOAL. ROONEY PATENT AND DRAINING RACQUEL URINE. RECTAL TUBE IN PLACE WITH BROWN LIQUID DRAINAGE. DR. FLORES TO BEDSIDE. REVIEWED PLAN FOR CTA, AND ECHO. PATIENT AWAKENS, COUGHING AGAINST VENT FREQUENTLY. PRECEDEX INCREASED TO 0.7MCG/KG. WILL REVIEW ORDERS AND TREAT PRESCRIBED.
--- NOTE | 2021-11-20 09:34 | NUR ---
CT PATIENT TRANSPORTED TO CT FOR PE STUDY AT 0900. ASSISTED BY RADIOLOGY, RN AND RT. RETURNED TO ROOM AT 0930. TO BEDSIDE AND UPDATED REGARDING ECHO AND CT. PATIENT REMAINED STABLE DURING CT.
--- NOTE | 2021-11-20 16:21 | NUR ---
Upon receiving a request from our [place] hospitalistic Volunteer that the pat's family would like the anointing of the sick performed by a product builder. I contact Father Ismael, who responds immediately and travels to visit the pt. Father prays for and anoints the pt but no family members are present. I will continue to remain available.
--- NOTE | 2021-11-20 17:55 | NUR ---
SHIFT SUMMARY PATIENT AWAKENS, FOLLOWS COMMANDS. ANSWERS QUESTIONS FOR . MEDICATED FOR PAIN CHARTED. PRECEDEX AT 0.7MCG/KG. VENT SETTINGS REMAIN AC 16/500/10/60%. SUCTIONING THICK, WHITE SPUTUM VIA ETT AND ORALLY. CT AND ECHO COMPLETED. TF AT GOAL OF 40ML/HR. DR. FLORES UPDATED PATIENT'S OF CHANGES AND CURRENT PLAN OF TREATMENT. ROONEY AND RECTAL TUBE IN PLACE. WILL REPORT TO ONCOMING RN.
[2021-11-20 20:47] LABS: Vancomycin, Trough 22.3 ug/mL (5.0-10.0)
[2021-11-21 04:03] LABS: BASOPHILS ABSOLUTE AUTO 0.05 K/mm3 (0.00-0.23); BASOPHILS PERCENT AUTO 0 % (0-2); EOSINOPHILS ABSOLUTE AUTO 0.12 K/mm3 (0.00-0.68); EOSINOPHILS PERCENT AUTO 1 % (0-6); Hemoglobin 8.2 g/dL (13.5-17.5); IMMATURE GRAN ABSOLUTE AUTO 0.36 K/mm3 (0.00-0.10); IMMATURE GRAN PERCENT AUTO 2 % (0-1); LYMPHOCYTES ABSOLUTE AUTO 0.92 K/mm3 (0.84-5.20); LYMPHOCYTES PERCENT AUTO 5 % (21-46); MONOCYTES ABSOLUTE AUTO 0.42 K/mm3 (0.16-1.47); MONOCYTES PERCENT AUTO 2 % (4-13); Mean Corpuscular HGB 33.1 pg (26.0-34.0); Mean Corpuscular HGB Conc 34.2 g/dL (31.5-36.5); Mean Corpuscular Volume 97 fL (80-100); Mean Platelet Volume 11.1 fL (9.1-12.4); NEUTROPHILS ABSOLUTE AUTO 15.86 K/mm3 (1.96-9.15); NEUTROPHILS PERCENT AUTO 89 % (41-73); Platelet Count 223 K/mm3 (150-400); RDW Standard Deviation 50.1 fL (35.1-46.3); Red Blood Cell Count 2.48 M/mm3 (4.30-5.90); White Blood Cell Count 17.73 K/mm3 (4.00-11.30)
[2021-11-21 04:18] LABS: Calcium, Blood 7.1 mg/dL (8.5-10.1); Creatinine, Blood 0.78 mg/dL (0.60-1.20); Magnesium, Blood 1.6 mg/dL (1.6-2.4); Phosphorus, Blood 2.7 mg/dL (2.5-4.9); Potassium, Blood 3.6 mmol/L (3.5-5.5)
--- NOTE | 2021-11-21 06:07 | NUR ---
SHIFT SUMMARY: PT. REMAINED STABLE OVERNIGHT, PROPOFOL WAS RESTARTED FOR MORE ADEQUATE SEDATION DUE TO INCREASED OXYGEN REQUIREMENTS AND PRECEDEX WAS WEANED OFF. PT. HAS A CARDIOLOGY CONSULT TODAY AND WILL HAVE A POSSIBLE BALDOMERO DONE TODAY DUE TO ECHO SHOWING POSSIBLE VEGETATION ON THE HEART. PT.'S VS HAVE REMAINED STABLE AND WNL THROUGHOUT THE NIGHT AND TF WAS HELD AT MIDNIGHT. ANTIBIOTICS WERE CHANGED AND PT. WAS GIVEN A BED BATH AND GOT A LINEN CHANGE. ROONEY AND RECTAL TUBE ARE STILL PATENT AND DRAINING. PT. HAD 600 OF UOP FROM ROONEY STILL RACQUEL COLORED AND MINIMAL FROM RECTAL TUBE. PT. RESTING COMFORTABLY AT THIS TIME.
[2021-11-21 06:13] LABS: Base Excess Venous 4.8 mmol/L; Bicarbonate Venous 28.3 mmol/L (24.0-30.0); pH Blood Venous 7.45 (7.34-7.37)
--- NOTE | 2021-11-21 14:07 | NUR ---
Spiritual Care Visit. Pt. is mostly unresponsive. Spouse is present, as is a freind of Pt. Spouse is unsettled by the decline in Pts. condition and verblizes that she would like to transfer Pt. to [place]. Listen theraputicially with a calming presence. [place] with Spouse and Pt. Spouse verbalizes gratitude for th spiritual care visit.
--- NOTE | 2021-11-21 17:48 | NUR ---
SHIFT SUMMARY NO ACUTE CHANGES THIS SHIFT. PT REMAINS INTUBATED AND SEDATED. VENT SETTINGS REMAIN AC 16, TV 500, PEEP 10, FIO2 70%. PT CONTINUES TO HAVE COPIOUS THICK ORAL AND ETT SECRETIONS. VITAL SIGNS HAVE REMAINED STABLE. PICC TO ALTHEA REMAINS C/D/I WITH PROPOFOL INFUSING AT 25 MCG/KG/MIN AND NS TKO. OGT REMAINS IN PLACE, TUBE FEEDING RESUMED THIS MORNING. ROONEY REMAINS IN PLACE WITH YELLOW/RACQUEL COLORED URINE OUTPUT. RECTAL TUBE IN PLACE WITH LIQUID/SOFT BROWN OUTPUT NOTED. SBW RESTRAINTS IN PLACE. PT OPENS EYES TO VERBAL STIMULI AND FAMILY AT BEDSIDE. WILL CONTINUE TO MONITOR AND REPORT OFF TO ONCOMING RN.
--- NOTE | 2021-11-21 19:15 | NUR ---
ASSUMED CARE PATIENT IS LYING IN BED, INTUBATED AND SEDATED. NO FAMILY OR VISITORS AT BEDSIDE. PROPOFOL INF @ 25MCG/KG/MIN, NS TKO TO ALTHEA PICC. ROONEY PATENT AND DRAINING DARK YELLOW CLEAR URINE TO GRAVITY. RECTAL TUBE IN PLACE WITH BROWN SOFT STOOL IN TUBE, NOT QUITE LIQUID CONSISTENCY. PIVOT TF INF @ GR 35ML/HR VIA OGT WITH 30ML Q4H WATER FLUSHES. REPORT RECEIVED FROM RIZWAN ORTEGA.
[2021-11-22 00:07] LABS: Vancomycin, Trough 21.8 ug/mL (5.0-10.0)
[2021-11-22 04:19] LABS: BASOPHILS ABSOLUTE AUTO 0.03 K/mm3 (0.00-0.23); BASOPHILS PERCENT AUTO 0 % (0-2); EOSINOPHILS ABSOLUTE AUTO 0.14 K/mm3 (0.00-0.68); EOSINOPHILS PERCENT AUTO 1 % (0-6); Hematocrit 23.8 % (37.0-53.0); IMMATURE GRAN ABSOLUTE AUTO 0.32 K/mm3 (0.00-0.10); IMMATURE GRAN PERCENT AUTO 2 % (0-1); LYMPHOCYTES ABSOLUTE AUTO 0.72 K/mm3 (0.84-5.20); LYMPHOCYTES PERCENT AUTO 4 % (21-46); MONOCYTES ABSOLUTE AUTO 0.41 K/mm3 (0.16-1.47); MONOCYTES PERCENT AUTO 2 % (4-13); Mean Corpuscular HGB 32.9 pg (26.0-34.0); Mean Corpuscular HGB Conc 33.6 g/dL (31.5-36.5); Mean Corpuscular Volume 98 fL (80-100); NEUTROPHILS ABSOLUTE AUTO 16.38 K/mm3 (1.96-9.15); NEUTROPHILS PERCENT AUTO 91 % (41-73); Platelet Count 259 K/mm3 (150-400); RDW Coefficient Variation 14.1 % (11.7-14.2); RDW Standard Deviation 50.8 fL (35.1-46.3); Red Blood Cell Count 2.43 M/mm3 (4.30-5.90)
[2021-11-22 04:35] LABS: Albumin, Blood 0.9 g/dL (3.4-5.0); Anion Gap 7 mmol/L (6-16); Blood Urea Nitrogen 31 mg/dL (8-24); Bun/Creatinine Ratio 41.5 (12.0-20.0); CO2, Blood 28 mmol/L (21-32); Calcium, Blood 7.2 mg/dL (8.5-10.1); Chloride, Blood 104 mmol/L (98-108); Creatinine, Blood 0.75 mg/dL (0.60-1.20); Glomerular Filtration Rate 105 (60-); Glucose, Blood 153 mg/dL (70-99); Phosphorus, Blood 3.5 mg/dL (2.5-4.9); Sodium, Blood 139 mmol/L (136-145)
--- NOTE | 2021-11-22 04:46 | NUR ---
SHIFT SUMMARY PATIENT REMAINED SEDATED AND INTUBATED T/O SHIFT. FIO2 REQUIREMENTS INCREASED FROM 55% TO 65% TO KEEP SPO2 >90%. WHEN LYING ON HIS RT SIDE SPO2 IS IN LOW 90'S COMPARED TO HIGH 90'S WHEN LAYING ON THE LT SIDE. LUNG SOUNDS T/O RT LOBES ARE INCREASINGLY COARSE. SMALL TO MODERATE AMOUNTS OF WHITE/CLEAR FROTHY SPUTUM FROM ETT. RESIDUALS INCREASED T/O SHIFT UP TO MAX OF 240ML @ 0400 CHECK. RECTAL TUBE DISLODGED AND REMAINED OUT T/O SHIFT. NO BM AFTER RECTAL TUBE REMOVAL BUT BT STILL HYPERACTIVE T/O. PATIENT IS NOT FOLLOWING COMMANDS, BUT TRACKS SOUND AND RAISES EYEBROWS/GRIMACES. GTTS: PROPOFOL @ 25MCG/KG/MIN AND NS TKO LABS: CALCIUM 7.2-IONIZED CA ORDERED BY DR. ECHAVARRIA. PENDING RESULT.
--- NOTE | 2021-11-22 06:09 | NUR ---
LOW IONIZED CA PATIENT IONIZED CA RESULTED AT 1.01. CALL MADE TO DR. ECHAVARRIA AND NOTIFIED OF RESULT. AWAITING ORDERS TO BE PLACED BY DR. ECHAVARRIA IF APPROPRIATE.
[2021-11-22 08:57] LABS: IMMATURE RETIC FRACTION 36.8 % (2.3-16.0); RETIC HGB EQUIVALENT 27.8 pg (28.20-36.60); RETICULOCYTE ABSOLUTE 0.0268 M/mm3 (0.0200-0.1100); RETICULOCYTE COUNT PERCENT 1.1 % (0.50-2.50)
[2021-11-22 09:06] LABS: Percent Saturation 18.3 % (20.0-50.0)
--- NOTE | 2021-11-22 09:44 | NUR ---
AM NOTE... ASSUMED CARE OF PT AT 0700 THE PT IS INTUBATED AND SEDATED ON PROPOFOL AT 25MCG/KG. THE PT OPENS HIS EYES TO SOUND. L/S CLEAR T/O DIM IN THE BASES RR 20-28. SCANT TO SMALL AMOUNT OF CLEAR/WHITE SPUTUM SUCTIONED VIA ET TUBE. THE PT'S O2 SATS WERE 88-93%. THE PT'S OG TUBE IS SECURE AND RUNNING TUBE FEEDS PER GOAL OF 35MLS/HR, RESIDUAL WAS 175MLS ALL REINSTILLED. BT PRESENT AND HYPERACTIVE, ABD IS SOFT TO PALPATION. THE PT IS IN SINUS TACH IN THE LOW 100'S. BP STABLE WITH MAPS >65. THE PT HAS 2+ EDEMA NOTED TO HIS HANDS AND NONPITTING NOTED TO HIS BLE AND FEET. THE PT IS FEBRILE AT 100.9. AT 0800 THE PT'S SEDATION WAS PLACED ON STAND BY, APROX 15 MINS LATER THE PT WAS AWAKE AND LOOKING AROUND THE ROOM, THIS RN ASKED THE PT IF HE COULD HEAR ME AND HE NODDED "YES." THE PT WOULD SHAKE HIS HEAD AND MOVE HIS HEAD AROUND THE ROOM. THE PT WAS ALSO TRYING TO MOVE HIS LEGS BUT THIS EFFORT WAS VERY WEAK. THE PT'S O2 SATS DECREASED EVEN MORE DOWN TO 86% DURING THIS TIME, THE PT'S PROPOFOL WAS INCREASED UP TO 35MG/KG AND RESTARTED. WILL CONTINUE TO MONITOR.
--- NOTE | 2021-11-22 14:24 | NUR ---
PT UPDATE.... DR. LUCERO, THE PT'S AND HIS BROTHER FROM [place] MET USING THE DRY CHAIN WORKER TELEPHONE. BOTH THE PT'S AND BROTHER WERE UPDATED AND HAD THEIR QUESTIONS ANSWERED USING THE DRY CHAIN WORKER TELEPHONE. BOTH VERBALIZED THAT THEIR QUESTIONS WERE ANSWERED. THE PT HAS BEEN OFF OF SEDATION FOR OVER 1 HOUR, HE IS WAKEING UP AND RESPONDING APPROPRIATELY TO QUESTIONS FROM THE FAMILY. WILL CONTINUE TO MONITOR.
--- NOTE | 2021-11-22 17:27 | NUR ---
SHIFT SUMMARY... NO ACUTE NEGATIVE CHANGES NOTED THIS SHIFT. THE PT'S VS HAVE BEEN STABLE. THE PT WAS OFF SEDATION FOR APROX 4 HOURS AND DID WELL, HE WAS ABLE TO FOLLOW DIRECTIONS AND MOVE ALL EXTREMITIES WEAKLY. THE PT'S HAS BEEN AT THE BEDSIDE T/O THIS SHIFT. THE PT HAS NOT HAD A BM THIS SHIFT. TUBE FEEDS RUNNING PER ORDERS. THE PT'S PEEP WAS CHANGED PER DR. LUCERO FROM 10 TO 12, CURRENTLY THE PT'S VENT SETTINGS ARE AC:16/500/12/65% WITH O2 SATS >92%. L/S CONTINUE TO BE CLEAR T/O DIM IN THE BASES. THE PT HAS BEEN FEBRILE MOST OF THIS SHIFT, HE HAS BEEN MEDICATED WITH TYLENOL PER ORDERS WHICH HIS TEMP RESPONDS WELL. THE PT'S ROONEY IS PATENT AND DRAINING TO GRAVITY. WILL CONTINUE TO MONITOR UNTIL REPORT IS GIVEN TO ONCOMING RIZWAN
--- NOTE | 2021-11-22 19:15 | NUR ---
ASSUMED CARE PATIENT LYING IN BED INTUBATED AND SEDATED ON PROPOFOL 25MCG/KG/MIN, NS TKO WITH ABX INF TO ALTHEA PICC ARM. PATIENT IS AWAKE WITH EYES OPEN AND TRACKING AROUND THE ROOM. FAMILY IS AT BEDSIDE TALKING TO PATIENT. VENT SETTINGS AC/VC 16/500/12/55%-COUGHING BUT TOLERATING VENT. FIO2 INCREASED TO 65% AFTER ASSUMING CARE D/T SPO2 DECREASED TO 88%. SEDATION DECREASED TO 15MCG/KG/MIN IN ANTICIPATION FOR BROTHER ARRIVAL SO THAT PATIENT CAN INTERACT WITH HIM. PATIENT IS HAVING INCREASED COUGHING WITH THIS, BUT MAINTAINING SATURATIONS. PIVOT 1.5 INF @ GR 35ML/HR VIA OGT. ROONEY PATENT AND DRAINING TO GRAVITY. MONITOR SHOWS ST WITH RATE 100'S. VSS. REPORT RECEIVED FROM RIZWAN COOL.
--- NOTE | 2021-11-23 05:38 | NUR ---
SHIFT SUMMARY PATIENT REMAINED INTUBATED AND SEDATED T/O SHIFT. PROPOFOL @ 5MCG/KG/MIN AT BEGINNING OF SHIFT FOR APPROX 2 HOURS WHILE FAMILY WAS IN ROOM VISITING. FOLLOWING COMMANDS AND TRYING TO TALK. AT THIS TIME. AFTER FAMILY LEFT, PATIENT REQUIRED HIGHER DOSES OF PROPOFOL WITH IT NOW INF @ 40MCG/KG/MIN AND STILL OPENING EYES, TRACKING, AND COUGHING. TMAX THIS THIFT OF 101.7F-TYLENOL 650MG PT GIVEN TWICE. PATIENT HAD MINIMAL RESIDUALS FROM OGT. ROONEY DRAINED 600 DARK RACQUEL/ORANGE URINE. PATIENT HAD ONE SMALL BM THIS SHIFT-LIQUID AND BROWN. NO OTHER CHANGES DURING SHIFT.
[2021-11-23 05:46] LABS: Albumin, Blood 0.8 g/dL (3.4-5.0); Anion Gap 5 mmol/L (6-16); Blood Urea Nitrogen 35 mg/dL (8-24); Bun/Creatinine Ratio 46.8 (12.0-20.0); CO2, Blood 28 mmol/L (21-32); Calcium, Blood 7.3 mg/dL (8.5-10.1); Chloride, Blood 107 mmol/L (98-108); Creatinine, Blood 0.75 mg/dL (0.60-1.20); Glomerular Filtration Rate 105 (60-); Glucose, Blood 168 mg/dL (70-99); Phosphorus, Blood 3.6 mg/dL (2.5-4.9); Potassium, Blood 3.9 mmol/L (3.5-5.5); Sodium, Blood 140 mmol/L (136-145); Vancomycin, Trough 18.4 ug/mL (5.0-10.0)
--- NOTE | 2021-11-23 08:41 | NUR ---
AM NOTE... ASSUMED CARE OF PT AT 0700, THE PT IS INTUBATED AND SEDATED ON 30MCG/KG OF PROPOFOL BUT THE PT IS FULLY AWAKE AND LOOKING AROUND THE ROOM, THE PT IS ABLE TO FOLLOW SOME SIMPLE COMMANDS. THE PT'S VENT SETTINGS HAVE NOT CHANGED OVERNIGHT AC:16/500/12/65% WITH O2 SATS IN THE LOW 90% L/S COARSE ON THE UPPER RIGHT/MID LOBE COARSE CRACKLES NOTED IN THE RLL. CLEAR IN THE LEFT UPPER LOBE WITH COARSE CRACKLES NOTED IN THE LLL. MODERATE AMOUNT OF FROTHY WHITE/CARMONA SPUTUM SUCTIONED VIA THE ET TUBE. ET TUBE IS 24 AT THE GUMS. OG TUBE IS RUNNING TUBE PER ORDERS AT 35MLS/HR WHICH IS THE GOAL RATE, NO RESIDUALS NOTED DURING THIS ASSESSMENT. BT PRESENT AND HYPOACTIVE, ABD HAS MODERATE DISTENTION BUT IS SOFT TO PALPATION. THE PT'S ROONEY IS PATENT AND DRAINING TO GRAVITY. THE PT'S TEMP IS 100.7 AT THIS TIME. NEW BLOOD CULTURES WERE DRAWN THIS AM. WILL CONTINUE TO MONITOR.
--- NOTE | 2021-11-23 09:50 | NUR ---
PT UPDATE.... THE PT WAS REPOSITIONED ON TO THE RIGHT SIDE, ONCE THIS TURN WAS DONE THE PT'S O2 SATS DROPPED DOWN TO 84%, THE PT WAS PLACED ON 100% FIO2 TO HELP HIM RECOVER, ONCE HIS O2 SATS IMPROVED >90% THE FIO2 WAS RETURNED TO 65% HOWEVER ONCE THIS DECREASE WAS DONE THE PT'S O2 SATS DROPPED TO THE MID 80% AGAIN, THE PT'S FIO2 WAS INCREASED TO 75%, THIS KEPT THE PT O2 SATS AT 90%. DR. LUCERO WAS NOTIFIED AND ORDERS WERE GIVEN TO INCREASE THE PEEP FROM 12 TO 14. RT NOTIFIED OF THIS ORDER. WILL CONTINUE TO MONITOR.
[2021-11-23 13:00] LABS: BASOPHILS ABSOLUTE AUTO 0.02 K/mm3 (0.00-0.23); BASOPHILS PERCENT AUTO 0 % (0-2); EOSINOPHILS ABSOLUTE AUTO 0.28 K/mm3 (0.00-0.68); EOSINOPHILS PERCENT AUTO 2 % (0-6); Hematocrit 23.8 % (37.0-53.0); Hemoglobin 7.8 g/dL (13.5-17.5); IMMATURE GRAN ABSOLUTE AUTO 0.14 K/mm3 (0.00-0.10); IMMATURE GRAN PERCENT AUTO 1 % (0-1); LYMPHOCYTES ABSOLUTE AUTO 0.68 K/mm3 (0.84-5.20); LYMPHOCYTES PERCENT AUTO 4 % (21-46); MONOCYTES PERCENT AUTO 2 % (4-13); Mean Corpuscular HGB 32.9 pg (26.0-34.0); Mean Corpuscular HGB Conc 32.8 g/dL (31.5-36.5); Mean Corpuscular Volume 100 fL (80-100); Mean Platelet Volume 11.5 fL (9.1-12.4); NEUTROPHILS ABSOLUTE AUTO 14.55 K/mm3 (1.96-9.15); NEUTROPHILS PERCENT AUTO 91 % (41-73); Platelet Count 285 K/mm3 (150-400); RDW Coefficient Variation 14.3 % (11.7-14.2); RDW Standard Deviation 52.5 fL (35.1-46.3); Red Blood Cell Count 2.37 M/mm3 (4.30-5.90); White Blood Cell Count 15.97 K/mm3 (4.00-11.30)
--- NOTE | 2021-11-23 14:18 | NUR ---
Pt has had a handful of relatives stop into see him today. Dr. Villafuerte met with family yesterday via color adviser-family is primarily speaking. Pt remains full code status, and family is planning for trach in approx 4 days if pt condition remains unchanged. Palliative care to remain available.
--- NOTE | 2021-11-23 14:38 | NUR ---
PT UPDATE.... DURING THE 1400 Q2 TURN THIS RN NOTED THE PT HAD A SMALL BM, DURING MELA CARE THE PT STARTED TO DESAT DOWN TO 81% THE PT WAS TURNED BACK SUPINE AND ALLOWED TO RECOVER, ONCE HIS O2 SATS WERE >93% MELA CARE WAS FINSHED AND THE PT WAS RESPOSITIONED SUPINE HOWEVER THE PT'S O2 SATS STARTED TO TREND DOWN TO 78% THE VENT WAS SET TO 100% FIO2 AND THE PT'S O2 SATS WERE STILL <88%, THE PT WAS SUCTIONED AND HAD SCANT CLEAR/WHITE SPUTUM NOTED. SIDEWALK INSPECTOR WAS CALLED INTO THE ROOM D/T THE PT'S CONTINUED LOW O2 SATS. THE PT WAS THEN TURNED BACK ONTO HIS LEFT SIDE, THIS TURN IMPROVED HIS O2 SATS IMMEDIATELY. THE VENT FIO2 SETTINGS WERE CHANGED FROM 60% TO 70% TO KEEP O2 SATS >90%. RT UPDATED. WILL CONTINUE TO MONITOR.
--- NOTE | 2021-11-23 17:20 | NUR ---
SHIFT SUMMARY... NO ACUTE NEGATIVE CHANGES ASSESSED SINCE PREVIOUS NOTED. THE PT'S VENT SETTINGS ARE AC: 16/500/14/60% WITH O2 SATS >90%. THE PT'S PROPOFOL IS RUNNING AT 30MCG/KG AND PRECEDEX DRIP RUNNING AT 0.7MCG/KG AND THE PT IS COMPLIANT WITH THE VENT WITH THIS LEVEL OF SEDATION. THE PT HAD A SMALL BM THIS SHIFT. THE PT'S ROONEY IS PATENT AND DRAINING DARK YELLOW/ORANGE URINE TO GRAVITY. THE PT'S SECRETIONS HAVE BEEN MODERATE TO MINIMAL THICK CLEAR/CARMONA. THE PT CONTINUES TO BE FEBRILE AND MEDICATED WITH TYLENOL PER EMAR. WILL CONTINUE TO MONITOR UNTIL REPORT IS GIVEN TO ONCOMING RN.
--- NOTE | 2021-11-23 19:15 | NUR ---
ASSUMED CARE PATIENT LYING IN BED INTUBATED AND SEDATED WITH PROPOFOL @ 30MCG/KG/MIN AND PRECEDEX @ 0.7MCG/KG/HR. IS SITTING IN CHAIR AT BEDSIDE. NO OTHER FAMILY OR VISITORS IN THE ROOM. VENT SETTINGS AC 16/500/12/55% WITH SPO2 IN LOW 90'S. MONITOR SHOWS SR WITH RATE 80'S. VSS. PIVOT 1.5 INF @ GR 35ML/HR WITH 30ML Q4H FLUSHES. ROONEY PATENT AND DRAINING TO GRAVITY. CALL MADE TO DR. LUCERO TO CLARIFY LASIX ORDERS. ORDER RECEIVED FOR ONE TIME DOSE OF 40MG LASIX IV. ORDERS ALSO RECEIVED FOR OK TO INCREASE PRECEDEX TO 1.4MCG/KG/HR IF NEEDED. REPORT RECEIVED FROM RIZWAN COOL.
[2021-11-24 05:19] LABS: BASOPHILS ABSOLUTE AUTO 0.03 K/mm3 (0.00-0.23); BASOPHILS PERCENT AUTO 0 % (0-2); EOSINOPHILS ABSOLUTE AUTO 0.45 K/mm3 (0.00-0.68); EOSINOPHILS PERCENT AUTO 3 % (0-6); Hematocrit 24.8 % (37.0-53.0); Hemoglobin 8.2 g/dL (13.5-17.5); IMMATURE GRAN ABSOLUTE AUTO 0.21 K/mm3 (0.00-0.10); IMMATURE GRAN PERCENT AUTO 1 % (0-1); LYMPHOCYTES ABSOLUTE AUTO 0.85 K/mm3 (0.84-5.20); LYMPHOCYTES PERCENT AUTO 5 % (21-46); MONOCYTES ABSOLUTE AUTO 0.28 K/mm3 (0.16-1.47); MONOCYTES PERCENT AUTO 2 % (4-13); Mean Corpuscular HGB 32.8 pg (26.0-34.0); Mean Corpuscular HGB Conc 33.1 g/dL (31.5-36.5); Mean Corpuscular Volume 99 fL (80-100); NEUTROPHILS ABSOLUTE AUTO 14.68 K/mm3 (1.96-9.15); NEUTROPHILS PERCENT AUTO 89 % (41-73); Platelet Count 340 K/mm3 (150-400); RDW Coefficient Variation 14.2 % (11.7-14.2); RDW Standard Deviation 51.8 fL (35.1-46.3)
[2021-11-24 05:39] LABS: Alanine Aminotransfer (ALT/SGP 56 U/L (12-78); Albumin, Blood 0.8 g/dL (3.4-5.0); Albumin/Globulin Ratio 0.2 (0.8-1.8); Alk Phos 387 U/L (50-136); Anion Gap 6 mmol/L (6-16); Aspartate Aminotrans (AST/SGOT 34 U/L (12-37); Bilirubin, Direct 0.6 mg/dL (0.0-0.3); Bilirubin, Indirect 0.2 mg/dL (0.1-0.7); Bilirubin, Total 0.8 mg/dL (0.1-1.0); Blood Urea Nitrogen 52 mg/dL (8-24); CO2, Blood 28 mmol/L (21-32); Calcium, Blood 7.5 mg/dL (8.5-10.1); Chloride, Blood 108 mmol/L (98-108); Creatinine, Blood 0.91 mg/dL (0.60-1.20); Globulin, Blood 4.8 g/dL (2.2-4.0); Glomerular Filtration Rate 98 (60-); Glucose, Blood 109 mg/dL (70-99); Magnesium, Blood 1.9 mg/dL (1.6-2.4); Potassium, Blood 4.5 mmol/L (3.5-5.5); Sodium, Blood 142 mmol/L (136-145); Total Protein, Blood 5.6 g/dL (6.4-8.2)
--- NOTE | 2021-11-24 06:26 | NUR ---
SHIFT SUMMARY PATIENT REQUIRED AN INCREASE IN FIO2 DURING SHIFT-INCREASED FROM 60% TO 80% BY THE END OF SHIFT WITH SPO2 MAINTAINING 90-92% AND DROPPING TO 87-88 AT TIMES. PROPOFOL DECREASED TO 20MCG/KG/MIN AND PRECEDEX INCREASED TO 1.2MCG/KG/HR. BP REMAIN SOFT T/O SHIFT WITH MAPS GREATER THAN 60. PATIENT REPOSITIONED BETWEEN SUPINE AND LEFT SIDE LYING TO AVOID SEVERE DECREASE IN SPO2. VANCO TROUGH THIS AM WAS CRITICALLY HIGH @ 24.0-0600 DOSE HELD PER PHARMACY AND RECHECK 1700. URINE OUTPUT OF 650ML AFTER 40MG LASIX GIVEN AT BEFINNING OF SHIFT.
--- NOTE | 2021-11-24 08:45 | NUR ---
INITIAL ASSESSMENT PATIENT INTUBATD AND ON SEDATION. PATIENT RESPONDS TO NOXIOUS STIMULI WITH GRIMACING OF FACE. PATIENT IS NOT MOVING ANY EXTREMITIES. PATIENT HAS CORE TEMP OF 100.9 DEGREES FAHRENHEIT. PATIENT ON VENT SETTINGS OF AC 16, TV 500, PEEP 14 AND 80% FIO2. LUNGS CLEAR IN UPPER LOBES AND DIM IN LOWER LOBES. PATIENT COUGHS WHEN ETT SUCTIONED. SCANT AMOUNT OF THIN, CLEAR SECRETIONS NOTED WITH SUCTIONING. PATIENT TACHYPNEIC. PATIENT IN SR, HR IN THE 80S. SBP 80S TO 90S. PULSES FAINT. EDEMA TO BUES AND BLES. 2+ IN HANDS AND FEET. HYPOACTIVE BOWEL SOUNDS NOTED. LAST BM DOCUMENTED YESTERDAY. PATIENT ON PIVOT 1.5 TF AT GOAL RATE OF 35 MLS/ HOUR WITH 30 ML WATER FLUSH Q4H. RESIDUAL OF 160 MLS OBTAINED AND REINSTILLED THIS AM. ROONEY IN PLACE DRAINING ORANGE COLORED URINE. SOLES OF FEET DRY AND DISCOLORED. SCATTERED BRUISING NOTED. PROPOFOL AT 20 MCG/ KG/ MINUTE, PRECEDEX AT 1.4 MCG/ KG/ HOUR, NS TKO. BED LOW, CALL LIGHT IN REACH. WILL CONTINUE TO MONITOR FREQUENTLY THROUGHOUT SHIFT.
--- NOTE | 2021-11-24 09:21 | NUR ---
DR. HANNA UPDATED ON PATIENT STATUS. INFORMED THAT PEEP AND FIO2 INCREASED THIS AM. INFORMED THAT PATIENT HAD TMAX OF 101.7 DEGREES FAHRENHEIT ON OBSTETRICIAN. INFORMED THAT PATIENT RECEIVING LASIX BUT, PER OBSTETRICIAN NURSE, PATIENT HAS HAD NO MORE URINE OUT THAN DID BEFORE LASIX. INFORMED THAT WBCS INCREASED AND THAT ALBUMIN LOW AT 0.8.
--- NOTE | 2021-11-24 11:19 | NUR ---
Spiritual Call - Nurse Request Pt. was urgently being attended by medical team. Dr. Castro and palliative care are present. Spouse is the focal point of spiritual care. Spouse is fielding questions on phone from family members. Spouse is unsettled by the sudden change in Pts. vitals. Through theraputic listening and a calming presence Spouse displays evidence of understanding, but fear of an unknown future. Pastoral adolescent counselor is given as well as prayer with the Spouse. Spouse verbalized gratitude for the spiritual care visit.
--- NOTE | 2021-11-24 12:45 | NUR ---
PATIENT HAS TEMP OF 101.9 DEGREES FAHRENHEIT. HR IN THE 1-TEENS. SBP IN THE LOW 100S. LEVOPHED AT 8 MCG/ MINUTE. VENT SETTINGS: AC 22, TV 390, PEEP 14 AND 80% FIO2. LUNGS COARSE THROUGHOUT. TOF 4/4 BUT PATIENT TOLERATING VENT WELL. BIS IN THE 40S. NIMBEX AT 2.5 MCG/ KG/ MINUTE. PROPOFOL AT 30 MCG/ KG/ MINUTE. FENTANYL DRIP AT 50 MCG/ HOUR. BLOOD SUGAR 204. REMAINS AT BEDSIDE.
[2021-11-24 15:45] LABS: Base Excess Venous -1.2 mmol/L; Bicarbonate Venous 23.2 mmol/L (24.0-30.0); PCO2 Venous 53.1 mmHg (38-42); pH Blood Venous 7.29 (7.34-7.37)
--- NOTE | 2021-11-24 16:05 | NUR ---
DR. HANNA UPDATED ON URINE OUTPUT AND VBG RESULTS. ORDER FOR OT LASIX DOSE RECEIVED.
--- NOTE | 2021-11-24 16:45 | NUR ---
PATIENT HAS TEMP OF 99.4 DEGREES FAHRENHEIT. HR IN THE LOW 100S. SBP 90S TO LOW 100S. LEVOPHED AT 4 MCG/ MINUTE. VENT SETTINGS: AC 26, TV 390, PEEP 14, 60% FIO2. TOF 4/4. BIS IN THE 40S. REMAINS AT BEDSIDE.
--- NOTE | 2021-11-24 19:00 | NUR ---
SHIFT SUMMARY PATIENT REMAINED INTUBATED AND ON SEDATION. PATIENT PLACED ON NIMBEX AND PRONED THIS AM FOR SATS DOWN TO THE 50S. NO MOVEMENT OF EXTREMITIES NOTED BEFORE NIMBEX. TOF 4/4. BIS IN THE 40S. PATIENT HAD TMAX OF 102.2 DEGREES FAHRENHEIT THIS SHIFT. PATIENT GIVEN PRN TYLENOL AND TEMP IS IMPROVED. LUNGS COARSE. PATIENT STARTED SHIFT ON AC 16, TV 500, PEEP 14 AND 80% FIO2. PATIENT NOW ON AC 26, TV 390, PEEP 14, 60% FIO2. PATIENT TACHYPNEIC THIS AM BEFORE NIMBEX. PATIENT REMAINED SR TO ST, HR 80S TO 1-TEENS. SBP 50S TO 120S. PATIENT STARTED ON LEVO THIS SHIFT AND RANGED FROM 4 TO 10 MCG/ MINUTE. PATIENT CURRENTLY ON 4 MCG/ MINUTE. PATIENT CONTINUES TO BE EDEMATOUS. PATIENT HAD LARGE LIQUID BM. C. DIFF CULTURE SENT TO LAB. RECTAL TUBE PLACED. TF REMAINS AT GOAL RATE. 1200 MLS URINE OUT THIS SHIFT. PATIENT RECEIVED SEVERAL DOSES OF LASIX IV. SKIN TEAR NOTED TO R EAR AFTER FIRST TURNED TO PRONE POSITION; DRESSING IN PLACE. OTHERWISE SKIN REMAINS THE SAME. PATIENT HAS BEEN REPOSITIONED Q2H. NIMBEX AT 2.5 MCG/ KG/ MINUTE, PROPOFOL AT 40 MCG/ KG/ MINUTE, PRECEDEX OFF, FENTANYL DRIP AT 50 MCG/ HOUR, AND NS TKO. BLOOD SUGARS REMAINED IN 200S. PATIENT HAD LARGE AMOUNT OF VISITORS TODAY AND REMAINED AT BEDSIDE ALL DAY. PATIENT APPEARS WITHOUT PAIN OR DISTRESS AT THIS TIME. REPORT WILL BE GIVEN TO ASSUMING MODELING AGENT NURSE SHORTLY.
--- NOTE | 2021-11-24 20:20 | NUR ---
ASSUMED CARE PT INTUBATED, SEDATED, AND PARALYZED. TOF 4/4, BIS 40-50, SEDATED WITH PROPOFOL GTT 40MCG/KG/HR, NIMBEX GTT 2.5MCG/KG/MIN, AND FENTANYL GTT 50MCG/HR. VENT SETTINGS AV/VC 26/390/14/60%, LUNGS COARSE T/O PRIOR TO REPOSITIONING. CLEAR W/ END EXP COARSENESS AFTER. SMALL-MOD CREAM COLORED SPUTUM SUCTIONED. ST 105-110. BP STABLE WITH LEVOPHAD GTT 4MCG/MIN. CORE TEMP 98.1. HYPOACTIVE BOWEL TONES, RESIDUAL OF 810ML, WASTED D/T PT RECEIVING MEDS. TF AT GOAL RATE, PIVOT 1.5 35ML/HR, WATER 30MLS Q4/HR. RECTAL TUBE IN PLACE, DRAINING BROWN LIQUID STOOL. ROONEY CATH PATENT AND DRAING CLEAR/YELLOW URINE. PT RECEIVING LASIX Q6HR. PICC IN ALTHEA. DRG C/D/I. NS INFUSING FOR ANTIBIOTICS AND GTTS. AT BEDSIDE, SUPPORTIVE CARE GIVEN TO .
--- NOTE | 2021-11-24 23:41 | NUR ---
MD CALL NOTIFIED DR HANNA REGARDING RESIDUAL 810 ML. RECEIVED ORDER FOR REGLAN AND STOP TUBE FEED FOR THE NIGHT.
--- NOTE | 2021-11-25 00:36 | NUR ---
0005 REASSESSMENT PT RESTARTED ON LEVOPHAD 2MCG/MIN TO MAINTAIN MAP GREATER THAN 65. REPOSITIONED AND TURNED HEAD TO THE LEFT. TUBE FEED STOPPED D/T HIGH RESIDUAL. REGLAN GIVEN. PT REMAINS INTUBATED, SEDATED, AND PARALYZED.
[2021-11-25 04:15] LABS: BASOPHILS ABSOLUTE AUTO 0.04 K/mm3 (0.00-0.23); BASOPHILS PERCENT AUTO 0 % (0-2); EOSINOPHILS ABSOLUTE AUTO 0.44 K/mm3 (0.00-0.68); EOSINOPHILS PERCENT AUTO 3 % (0-6); Hematocrit 25.6 % (37.0-53.0); Hemoglobin 8.1 g/dL (13.5-17.5); IMMATURE GRAN ABSOLUTE AUTO 0.24 K/mm3 (0.00-0.10); IMMATURE GRAN PERCENT AUTO 1 % (0-1); LYMPHOCYTES ABSOLUTE AUTO 0.69 K/mm3 (0.84-5.20); LYMPHOCYTES PERCENT AUTO 4 % (21-46); MONOCYTES ABSOLUTE AUTO 0.37 K/mm3 (0.16-1.47); MONOCYTES PERCENT AUTO 2 % (4-13); Mean Corpuscular HGB 32.4 pg (26.0-34.0); Mean Corpuscular HGB Conc 31.6 g/dL (31.5-36.5); Mean Corpuscular Volume 102 fL (80-100); Mean Platelet Volume 10.9 fL (9.1-12.4); NEUTROPHILS ABSOLUTE AUTO 15.99 K/mm3 (1.96-9.15); NEUTROPHILS PERCENT AUTO 90 % (41-73); Platelet Count 357 K/mm3 (150-400); RDW Coefficient Variation 14.6 % (11.7-14.2); White Blood Cell Count 17.77 K/mm3 (4.00-11.30)
[2021-11-25 04:49] LABS: Albumin, Blood 0.9 g/dL (3.4-5.0); Albumin/Globulin Ratio 0.2 (0.8-1.8); Bilirubin, Direct 0.5 mg/dL (0.0-0.3); Bilirubin, Indirect 0.1 mg/dL (0.1-0.7); Bilirubin, Total 0.6 mg/dL (0.1-1.0); Bun/Creatinine Ratio 68.1 (12.0-20.0); Calcium, Blood 7.6 mg/dL (8.5-10.1); Creatinine, Blood 0.94 mg/dL (0.60-1.20); Globulin, Blood 5.1 g/dL (2.2-4.0); Magnesium, Blood 1.9 mg/dL (1.6-2.4); Phosphorus, Blood 4.3 mg/dL (2.5-4.9); Potassium, Blood 4.5 mmol/L (3.5-5.5)
--- NOTE | 2021-11-25 06:15 | NUR ---
SHIFT SUMMARY PT REMAINED INTUBATED, AND ON THE [facility] VENT. NO VEBT CHANGES T/O NIGHT. REMAINED PRONED WITH PLANS TO BE UNPRONED AT 11AM. REPROSITIONED Q2 WITH ALTERNATING ARM/LEG IN SWIMMERS POSITION. HEAD TURNED Q4HR SIDE TO SIDE WITH RT. TF STOPPED D/T HIGH RESIDUALS, STARTED ON REGLAN. LEVOPHED TITRATED T/O NIGHT TO MAINTAIN MAP GREATER THAN 65. CURRENTLY LEVOPHED IS ON STANDBY. TEMP 99.6, MEDICATED WITH TYLENOL. CURRENTLY AFEBRILE. PT SEDATED W/ PROPOFOL, AND FENTANYL. PARALYZED W/ NIMBEX. TOF 4/4. BIZ 40-50. ROONEY PATENT AND DRAINING CLEAR YELLOW URINE. RECEIVING LASIX Q6HR. RECTAL TUBE IN PLACE. 200 LIQ BROWN STOOL OUT T/O NIGHT. REMAINED AT BEDSIDE T/O NIGHT. WILL REPORT TO ONCOMING NURSE.
--- NOTE | 2021-11-25 08:00 | NUR ---
INITIAL ASSESSMENT PATIENT INTUBATED, SEDATED AND PARALYZED. TOF 4/4. PATIENT TOLERATING VENT. BIS IN THE 40S. PATIENT AFEBRILE. PATIENT ON VENT SETTINGS OF AC 26, TV 390, PEEP 14 AND 60% FIO2. NO SPUTUM NOTED WITH ETT SUCTIONING THIS AM. LUNGS COARSE THROUGHOUT. PATIENT IN SR, HR IN THE 90S. SBP IN THE LOW 100S. LEVOPHED OFF SINCE AROUND 0100. PULSES FAINT. EDEMA NOTED T/O. ABD MILDLY DISTENDED, SOFT, HYPOACTIVE BOWEL SOUNDS NOTED. OG CLAMPED FOR HIGH RESIDUALS ON ZIGZAGGER. RESIDUAL OF ZERO THIS AM. PATIENT HAS RECTAL TUBE THAT IS DRAINING BROWN, LIQUID STOOL. ROONEY DRAINING GOOD AMOUNT OF YELLOW COLORED URINE. DRY SKIN AND DISCOLORATION NOTED TO BOTTOM OF BILAT FEET. SCATTERED BRUISES NOTED T/O BODY. ABRASION NOTED TO R EAR; DRESSING PLACE FOR PROTECTION. NIMBEX AT 2.5 MCG/ KG/ MINUTE, PROPOFOL AT 40 MCG/ KG/ MINUTE, PRECEDEX OFF, NS TKO, FENTANYL AT 50 MCG/ HOUR. BED LOW. AT BEDSIDE. WILL CONTINUE TO MONITOR PATIENT FREQUENTLY THROUGHOUT SHIFT.
--- NOTE | 2021-11-25 09:00 | NUR ---
DR. HANNA UPDATED ON PATIENT STATUS. INFORMED THAT LEVO PLACED ON SB AROUND 0100. INFORMED THAT TF OFF FOR HIGH RESIDUALS ON WET POUR MIXER AND THAT REGLAN STARTED. INFORMED THAT TF RESIDUAL ZERO THIS AM. INFORMED THAT PATIENT HAD 1700 MLS URINE OUTPUT ON WET POUR MIXER. INFORMED THAT WBCS, BUN, AST, ALT ALL INCREASED ON LABS THIS AM. INFORMED THAT TMAX 99.8 DEGREES FAHRENHEIT ON WET POUR MIXER. INFORMED THAT HR UP TO 120S ON WET POUR MIXER. ORDER TO RESUME TF AFTER PATIENT SUPINATED THIS AM.
[2021-11-25 09:44] LABS: C DIFFICILE DNA NEGATIVE (Negative)
--- NOTE | 2021-11-25 10:20 | NUR ---
PATIENT SUPINATED AT 0940. PATIENT REMAINS ON SAME VENT SETTINGS. CHEST XR PERFORMED. DR. HANNA STATED TO ADVANCE OG. OG ADVANCED ABOUT 5 TO 6 CM.
--- NOTE | 2021-11-25 11:28 | NUR ---
Spiritual Care visit. Pt. was being repositioned, so this healthcare applications analyst met with spouse outside the room. Spouse displayed evidence of encouragement in the Pts. vitials have improved. Listened empathetically with a calming presence. Spouse verbalized gratitude for the spiritual care visit.
--- NOTE | 2021-11-25 13:00 | NUR ---
PATIENT AFEBRILE. NIMBEX TURNED OFF. HR IN THE LOW 100S. SBP LOW 100S TO 120S. LEVOPHED REMAINS OFF. PEEP AT 12, FIO2 AT 60%. ETT PUSHED DOWN TO 26 CM AT LIP EARLIER. SCANT AMOUNT OF THICK, WHITE/ CREAMY SPUTUM NOTED WITH SUCTIONING. TF DECREASED TO 25 MLS/ HOUR PER DIETARY AND AFTER THIS BOTTLE FORMULA WILL BE CHANGED TO VHP. BLOOD SUGAR 168; COVERAGE GIVEN.
--- NOTE | 2021-11-25 14:47 | NUR ---
DR. HANNA GIVEN PRELIMINARY REPORT FROM VENOUS DUPLEX. NO ORDERS RECEIVED.
--- NOTE | 2021-11-25 16:42 | NUR ---
PATIENT HAS TEMP OF 100.6 DEGREES FAHRENHEIT. BLANKET TAKEN OFF OF PATIENT AND PATIENT WASHING FACE WITH COOL CLOTH. HR IN THE 1-TEENS. SBP IN THE LOW 100S. PROPOFOL INCREASED TO 45 MCG/ KG/ HOUR RR INCREASED SLIGHTLY. NO OTHER ACUTE CHANGES TO NOTE ON AT THIS TIME. WILL CONTINUE TO MONITOR.
--- NOTE | 2021-11-25 18:59 | NUR ---
SHIFT SUMMARY PATIENT REMAINED INTUBATED AND ON SEDATION. NIMBEX TURNED OFF THIS SHIFT. PATIENT SUPINATED AROUND 1000. PATIENT IS RESPONDING TO NOXIOUS STIMULI. TMAX OF 100.6 DEGREES FAHRENHEIT. NO SIGNS OF PAIN NOTED THIS SHIFT. LUNGS REMAINED COARSE. AC 26, TV 390, PEEP DECREASED FROM 14 TO 12, 60% FIO2. SPUTUM PALE YELLOW IN COLOR. PATIENT REMAINED IN SR TO ST, HR 90S TO 1-TEENS. SBP 80S TO 130S. RECTAL TUBE DRAINED 200 MLS OF BROWN, LIQUID STOOL. TF RESTARTED AFTER SUPINATED. RESIDUAL OF ZERO THIS AM. BLOOD SUGARS 150S TO 160S. ROONEY DRAINED 2200 MLS. ZAROXOLYN STARTED THIS SHIFT. PROP AT 45 MCG/ KG/ MINUTE, FENTANYL AT 50 MCG/ HOUR, NS TKO. ECHO PERFORMED THIS SHIFT. LOWER VENOUS DUPLEX PERFORMED THIS SHIFT. FAMILY IN AND OUT ALL SHIFT. REPORT GIVEN TO ONCOMING NURSE.
--- NOTE | 2021-11-25 19:45 | NUR ---
ASSUMED CARE PT INTUBATED AND SEDATED. PROPOFOL GTT 45MCG/KG/MIN, AND FENTANYL GTT 50MCG/HR. NO SPONTANEOUS/PURPOSEFUL EXTREMITY MOVEMENT. PT GRIMACES AND OPENS EYES TO VERBAL STIMULI. AC/VC 26/390/12/60% RR 26-32. ROONEY PATENT AND DRAINING TO GRAVITY. OG W/ PIVOT 1.5 25ML/HR 30ML WATER FLUSH Q4. RECTAL TUBE IN PLACE. AT BEDSIDE.
[2021-11-26 04:25] LABS: BASOPHILS ABSOLUTE AUTO 0.02 K/mm3 (0.00-0.23); BASOPHILS PERCENT AUTO 0 % (0-2); EOSINOPHILS ABSOLUTE AUTO 0.46 K/mm3 (0.00-0.68); EOSINOPHILS PERCENT AUTO 4 % (0-6); Hematocrit 21.5 % (37.0-53.0); Hemoglobin 6.9 g/dL (13.5-17.5); IMMATURE GRAN ABSOLUTE AUTO 0.21 K/mm3 (0.00-0.10); IMMATURE GRAN PERCENT AUTO 2 % (0-1); LYMPHOCYTES ABSOLUTE AUTO 1.02 K/mm3 (0.84-5.20); LYMPHOCYTES PERCENT AUTO 10 % (21-46); MONOCYTES PERCENT AUTO 4 % (4-13); Mean Corpuscular HGB 32.5 pg (26.0-34.0); Mean Corpuscular HGB Conc 32.1 g/dL (31.5-36.5); Mean Corpuscular Volume 101 fL (80-100); Mean Platelet Volume 11.4 fL (9.1-12.4); NEUTROPHILS ABSOLUTE AUTO 8.43 K/mm3 (1.96-9.15); NEUTROPHILS PERCENT AUTO 80 % (41-73); Platelet Count 323 K/mm3 (150-400); RDW Coefficient Variation 14.6 % (11.7-14.2); RDW Standard Deviation 53.6 fL (35.1-46.3); Red Blood Cell Count 2.12 M/mm3 (4.30-5.90); White Blood Cell Count 10.54 K/mm3 (4.00-11.30)
[2021-11-26 04:40] LABS: Bun/Creatinine Ratio 94.2 (12.0-20.0); Calcium, Blood 7.3 mg/dL (8.5-10.1); Creatinine, Blood 0.71 mg/dL (0.60-1.20); Potassium, Blood 3.8 mmol/L (3.5-5.5)
--- NOTE | 2021-11-26 06:37 | NUR ---
SHIFT SUMMARY PT REMAINS INTUBATED AND SEDATED. PROPROFOL GTT 45MCG/KG/MIN, FENTANYL MEDICAL EDITOR 50MCG/HR. PT RESPONDS TO VERBAL STIMULI. NO EXTREMITY MOVEMENT NOTED THIS SHIFT. VENT SETTINGS 26/390/14/60% RR 26-33. SATS DECREASED WITH REPOSITIONING AND SLOW TO RECOVER. SBP SOMETIMES IN THE 90's, MAP GREATER THAN 65 T/O SHIFT. TMAX OF 99.7. HGB 6.[address] HANNA NOTIFIED, ORDERS RECIVED TO HOLD LOVENOX AND TRANSFUSE 1 UNIT OF PRBC. OG W/ PIVOT 1.5 AT 30ML/HR. NO RESIDUAL. RECTAL TUBE IN PLACE W/ 50 ML OF LIQ BROWN STOOL. ROONEY PATENT OUTPUT OF 1000ML.
--- NOTE | 2021-11-26 08:00 | NUR ---
PT SEDATED ON PROPOFOL @ 45 MCG/KG/MIN. GRIMACES TO PAINFUL STIMULI. PT IS PRIMARILY IRANIAN SPEAKING. WILL REASSESS NEURO FURTHER WHEN AWAKE AND ABLE TO ASSIST WITH TRANSLATION. SOFT WRIST RESTRAINTS IN PLACE TO PREVENT SELF EXTUBATION. TEMP 101.3-BLANKETS REMOVED AND FAN ON PT. ECG SHOWS ST WITH RATE 100-110'S.SBP 100'S. GENERALIZED EDEMA NOTED. PARTICULARLY TO HANDS AND LOWER EXTREMITIES FROM THE ANKLE DOWN. DP/PT PULSES PER DOPPLER. LUNGS DIMINISHED THROUGH OUT. ETT TO VENT: 26, RR 30, TV 390, PEEP 14, FIO2 60%. PT MAINTAINS SATS>90%-EXCEPT FOR WHEN HE IS REPOSITIONED-SATS TO 83%. PT TAKES 5-10 MINUTES FOR HIS SATS TO RETURN TO >90% ETT SUCTION PRODUCTIVE OF MODERATE AMOUNT OF THICK, WHITE SECRETIONS. OGTF PIVOT 1.5 @ 30 CC/HR WITH MINIMAL RESIDUAL. RECTAL TUBE INTACT WITH MODERATE AMOUNT OF BROWN, LIQUID STOOL TO BSD-BANANA FLAKES GIVEN. ROONEY TO BSD WITH 225 CC OR CLEAR, YELLOW URINE TO UROMETER. NO NOTED SKIN BREAK DOWN, BUT THE BOTTOMS OF PT FEET ARE DRY AND DISCOLORED AND SCATTERED BRUISES NOTED THOUGH OUT. PT SPOUSE UPDATED AND REVIEWED PLAN OF CARE FOR TODAY. PT TO RECEIVE 1 UNIT PRBC'S TODAY. PT SPOUSE AWARE.
--- NOTE | 2021-11-26 08:06 | NUR ---
1 UNIT PRBC'S INITIATED AFTER PROPER CHECKS AND ID.
--- NOTE | 2021-11-26 08:20 | NUR ---
TEMP 99.3. PRBC'S INFUSING WITHOUT DIFFICULTY-INCREASED RATE TO 125 CC/HR.
--- NOTE | 2021-11-26 11:45 | NUR ---
PT TRANSPORTED TO CTA CHEST WITH RT AND RN AT BEDSIDE. TRANSPORT UNEVENTFUL. PT REMAINS INTUBATED, SEDATED, AND RESTRAINED. ECG CONTNUES SR WITH RATE 90'S. SBP 120'S. LUNGS DIMINISHED IN THE BASES-MAINTAINS SATS>90% ON FIO2 60%. PT DID NOT DESAT WHILE ON CT TABLE FIO2 100% FOR PROCEDURE. ETT SUCTION REMAINS MODERATE AMOUNT OF THICK, WHITE SPUTUM. PT CONTINUES TO TOLERATE OGTF WITH MINIMAL RESIDUAL. RECTAL TUBE CONTINUES WITH MODERATE AMOUNT OF BROWN, LIQUID DRAINAGE. ROONEY WITH 1000 CC URINE OUTPUT SO FAR THIS SHIFT-SCHEDULED LASIX GIVEN-SEE EMAR.
--- NOTE | 2021-11-26 15:30 | NUR ---
NO ACUTE CHANGES. TF OFF FOR IVC FILTER PLACEMENT. INFORMED CONSENT OBTAINED OVER THE PHONE BY DR. TEE AND WITNESSED BY THIS RN.
--- NOTE | 2021-11-26 15:35 | NUR ---
TO HEART TWINING FOR IVC FILTER.
--- NOTE | 2021-11-26 17:30 | NUR ---
PT PLACED IN PRONE POSITION. PROPOFOL TITRATED UP TO 50 MCG/KG/MIN-PT TOLERATED WELL. PEEP DECREASED TO [address] HANNA. SATS>90% PT TO REMAIN PRONE UNTIL 0900 11/27/21. VHP INITIATED @ 30 CC/HR WITH 30 CC H20 EVERY 4 HOURS. PT SPOUSE AT BEDSIDE-UPDATE GIVEN.
--- NOTE | 2021-11-26 18:15 | NUR ---
PT GRIMACING, PULLING ON RESTRAINTS, RR 36. HR 120'S AND BP 172/107. PROPOFOL @ 50 MCG/KG/MIN. FENTANYL 100 MCG BOLUS GIVEN, THEN FENTANYL CONTINUOUS RATE INCREASED TO 75 MCG/HR.
--- NOTE | 2021-11-26 19:00 | NUR ---
SHIFT SUMMARY PT INTUBATED AND SEDATED ON PROPOFOL GTT 45MCG/KG/MIN, AND FENTANYL NECK PINNER 75MCG/HR. VENT SETTINGS AC/VC 26/390/12/60% RR 27. PT PRONED W/ HEAD TURNED LEFT, LLE/LUE UP. OG W/ VITAL HP 30ML/HR Q4 WATER FLUSH 30ML. ROONEY PATENT AND DRAINING TO GRAVITY. RECTAL TUBE IN PLACE. AT BEDSIDE.
[2021-11-27 03:38] LABS: Hematocrit 27.4 % (37.0-53.0); Hemoglobin 8.9 g/dL (13.5-17.5); Mean Corpuscular HGB Conc 32.5 g/dL (31.5-36.5); Mean Platelet Volume 10.7 fL (9.1-12.4); Platelet Count 344 K/mm3 (150-400); RDW Coefficient Variation 17.3 % (11.7-14.2); RDW Standard Deviation 61.1 fL (35.1-46.3); Red Blood Cell Count 2.87 M/mm3 (4.30-5.90)
[2021-11-27 03:45] LABS: Mean Corpuscular Volume 96 fL (80-100)
[2021-11-27 04:02] LABS: Albumin/Globulin Ratio 0.2 (0.8-1.8); Bilirubin, Total 0.8 mg/dL (0.1-1.0); Bun/Creatinine Ratio 71.7 (12.0-20.0); Calcium, Blood 7.9 mg/dL (8.5-10.1); Creatinine, Blood 0.87 mg/dL (0.60-1.20); Globulin, Blood 5.1 g/dL (2.2-4.0); Magnesium, Blood 1.9 mg/dL (1.6-2.4); Phosphorus, Blood 2.9 mg/dL (2.5-4.9); Potassium, Blood 3.2 mmol/L (3.5-5.5); Total Protein, Blood 6.1 g/dL (6.4-8.2)
--- NOTE | 2021-11-27 06:30 | NUR ---
SHIFT SUMMARY PT REMAINS INTUBATED AND SEDATED W/ PROPOFOL GTT 50MCG/KG/MIN AND FENTANYL HOUSEHOLD APPLIANCES SALESPERSON 75MCG/HR. NS TKO. FIO2 CHANGED FROM 60% TO 55% CURRENT SETTINGS AC/VC 26/390/12/55% RR 26-30. VSS. PT PRONED T/O NIGHT. TOLERATED FREQUENT REPOSITIONING WELL. OG W/ VITAL HP 40ML/HR (GOAL) Q4 WATER FLUSH 30ML. ROONEY PATENT AND DRAINING TO GRAVITY. RECTAL TUBE IN PLACE. AT BEDESIDE T/O NIGHT.
--- NOTE | 2021-11-27 07:15 | NUR ---
Assumed care of pt at 0700 with Lita ASTORGA. Report received from Salomón Barber RN and Rosette RN. Pt sedated with propofol at 50 mcg/kg/min and fentanyl at 75 mcg/hr. Vent settings ACVC 26/350/12/55%. Actual RR 27. Synchronous with ventilator. ST per monitor, BP stable. Pt's prone positioned. Pt's spouse in room.
--- NOTE | 2021-11-27 10:48 | NUR ---
SPiritual Care Visit. Pt. is intubated and mostly unresponsive. Spouse is present and welcomes my visit. Restablish rapport and spouse gave an update on Pts. condition. During visit, Pts. eyes opened on a couple of occassions. Prayed for Pt. and spouse. Spouse displayed evidence of being encouraged and verbalized gratitude for the spiritual care visit.
--- NOTE | 2021-11-27 11:25 | NUR ---
Patient changed from prone to supine position at 1000. Full bedbath performed. Pt tolerated positioning well, however required increase of FiO2 to 80% to maintain SpO2 of 90% or greater. With repositioning, pt opened eyes and started blinking. Plan to transfer patient to chair around noon.
[2021-11-27 17:12] LABS: Vancomycin, Trough 15.9 ug/mL (5.0-10.0)
--- NOTE | 2021-11-27 18:19 | NUR ---
Pt back to bed from recliner and prone positioned at 1720. Tolerated well. Vent settings ACVC 26/350/12/60%. SpO2 90% or greater. Family updated on plan of care.
--- NOTE | 2021-11-27 18:20 | NUR ---
SUMMARY Neuro: Pt sedated with propofol at 50 mcg/kg/min. Fentanyl 75 mcg/hr. Responsive to pressure/painful stimulus. Pupils 3 mm, PERRL. No gag reflex. Cough reflex present. Musculoskeletal: Requires total care for all ADLs and repositioning. Lifted to recliner and remained in recliner for 5 hours. Currently prone positioned and to remain prone overnight. Respiratory: ACVC 26/350/12/60%. SpO2 90% or greater. Cough produces white purulent sputum. Lungs currently clear t/o. 8.0 cm ETT at expected location of 26 cm at lip. Cardiac: ST per monitor, rate 103. BP stable. Edema unchanged from initial assessment. Capillary refill less than 3 seconds BUE and BLE. GI: Tolerating tube feeds well. Rectal tube remains in place. Abd soft on palpation. : Hamlin catheter patent and draining clear, yellow urine. Skin: Unchanged from initial assessment. Protective pads to hips and knees to prevent skin breakdown while proned. Psychosocial: YANA due to intubation and sedation.
--- NOTE | 2021-11-27 20:36 | NUR ---
ASSUMED CARE AT 1900 PATIENT IS SEDATED ON PROPOFOL 50MCG/KG/MIN AND FENTANYL PROCESS CONTROL TECHNICIAN 75 MCG/HR, OPENS EYES TO VERBAL AND PRESSURE STIMULI. NO MOVEMENT IN EXTREMITIES. PATIENT ON VENT AC VC 26/390/12/50%, RR 26, LS CLEAR, SOME FINE CRACKLES. SUCTIONING SMALL/MOD AMOUNT OF THICK WHITE SPUTUM FROM ETT. PATIENT IN PRONE POSITION, TURNING HEAD Q2 HOURS WITH RT. HR ST 100-110. BP STABLE WITH MAP >65. PITTING EDEMA IN EXTREMITIES. OG WITH TF AT GOAL RATE. RECTAL TUBE DRAINING TO GRAVITY. ROONEY PATENT AND DRAINING TO GRAVITY. FAMILY AT BEDSIDE START OF SHIFT. SEE SHIFT ASSESSMENT FOR MORE INFORMATION.
[2021-11-28 04:18] LABS: Hemoglobin 8.6 g/dL (13.5-17.5); Mean Corpuscular HGB 31.5 pg (26.0-34.0); Mean Corpuscular HGB Conc 33.1 g/dL (31.5-36.5); Mean Corpuscular Volume 95 fL (80-100); Mean Platelet Volume 10.8 fL (9.1-12.4); Platelet Count 317 K/mm3 (150-400); RDW Coefficient Variation 16.2 % (11.7-14.2); RDW Standard Deviation 56.1 fL (35.1-46.3); Red Blood Cell Count 2.73 M/mm3 (4.30-5.90); White Blood Cell Count 11.28 K/mm3 (4.00-11.30)
[2021-11-28 04:42] LABS: Alanine Aminotransfer (ALT/SGP 93 U/L (12-78); Albumin/Globulin Ratio 0.2 (0.8-1.8); Alk Phos 625 U/L (50-136); Anion Gap 4 mmol/L (6-16); Aspartate Aminotrans (AST/SGOT 81 U/L (12-37); Bilirubin, Total 0.7 mg/dL (0.1-1.0); Blood Urea Nitrogen 55 mg/dL (8-24); Bun/Creatinine Ratio 69.7 (12.0-20.0); CO2, Blood 39 mmol/L (21-32); Calcium, Blood 8.2 mg/dL (8.5-10.1); Chloride, Blood 101 mmol/L (98-108); Creatinine, Blood 0.79 mg/dL (0.60-1.20); Globulin, Blood 5.2 g/dL (2.2-4.0); Glomerular Filtration Rate 104 (60-); Glucose, Blood 164 mg/dL (70-99); Magnesium, Blood 1.7 mg/dL (1.6-2.4); Phosphorus, Blood 2.9 mg/dL (2.5-4.9); Potassium, Blood 2.8 mmol/L (3.5-5.5); Sodium, Blood 144 mmol/L (136-145); Total Protein, Blood 6.2 g/dL (6.4-8.2); Triglycerides 215 mg/dL (30-160)
--- NOTE | 2021-11-28 06:16 | NUR ---
SHIFT SUMMARY PATIENT REMAINS SEDATED ON PROPOFOL 50 MCG/KG/MIN AND FENTANYL 75 MCG/HR, OPENS EYES TO PAINFUL STIMULI. ON VENT AC VC 26/390/12/45%, RR 26, SUCTIONING THICK WHITE SPUTUM FROM ETT. PATIENT PRONE THROUGH THE NIGHT. HEAD TURNED Q2 HOURS. HR ST 100-115, BP STABLE. OG WITH TUBE FEED AT GOAL RATE. RECTAL TUBE WITH 100 MLS, LIGHT BROWN LIQUID OUTPUT. ROONEY PATENT AND DRAINING TO GRAVITY, 3,000 OUT THIS SHIFT, CLEAR YELLOW. NO ACUTE CHANGES THIS SHIFT. REMAINED AT BEDSIDE THROUGH THE NIGHT.
--- NOTE | 2021-11-28 07:15 | NUR ---
ASSUMED CARE OF PT AT 0700. REPORT RECEIVED FROM CINDY ASTORGA. PT PRONE ON VENT AC VC 26/390/12/45, SEDATED W/PROPOFOL 50MCG/KG/MIN AND FENTANYL 75MCG/HR. O2 SATS >92% RR 26, HR 105, MAP >65, ROONEY CATH AND RECTAL TUBE PATENT AND DRAINING TO GRAVITY. SLEEPING AT BEDSIDE.
--- NOTE | 2021-11-28 10:46 | NUR ---
PT REPOSTIONED FROM PRONE TO SUPINE. TOLERATED WELL. FULL BED BATH PERFORMED. PLAN TO REPOSITION TO PRONE AT 1700.
[2021-11-28 10:57] LABS: Anti-Xa UFH, PHA Monitoring <0.10 IU/mL
--- NOTE | 2021-11-28 17:00 | NUR ---
REPOSITION PATIENT TO PRONE. PT SLIGHTLY TENSE AND GRIMACING. FENTANYL 50MCG GIVEN IV. PT O2 SAT 100%. RT DECREASED FIO2 TO 45%. PT TOLERATING POSITION CHANGE WELL. 02 SAT >92%.
--- NOTE | 2021-11-28 18:31 | NUR ---
END OF SHIFT SUMMARY NEURO: PT SEDATED WITH PROPOFOL AT 50MCG/KG/MIN AND FENTANYL 75MCG/HR. PROPOFOL TITRATED DOWN TO 40MCG/KG/MIN @ 1140. PT WAS RESPONDING TO VERBAL STIMULUS AND ORAL CARE. PROPOFOL PAUSED AT 1610. PT WAS RESPONDING BLINKING AND NODDING HEAD TO . STATES PT SQUEEZED HER HAND. PROPOFOL RESTARTED 50MCG/KG/MIN @ 1646 IN PREPARATION FOR REPOSITIONING TO PRONE. PUPILS PERRL. NO GAG REFLEX. COUGH REFELX PRESENT. MUSCULOSKELETAL: NEEDS MAXIMUM CARE FOR ADL'S AND REPOSITIONING. PLACED IN SUPINE POSITION AT 1000 AND PT TOLERATED WELL. PT IN PRONE POSITION OF 1700 AND WILL REMAIN SO OVERNIGHT. RESPIRATORY: ACVC 26/390/12/60% AND CURRENTLY O2 SATS >92% OR GREATER. SUCTIONING WHITE PURULENT SPUTUM. LUNGS ARE COURSE THROUGHOUT. ETT 8.0cm, 26cm AT LIP. CARDIAC: ST RATE OF 100-110's, BP STABLE WITH MAP >65. MODERATE EDEMA IN ALL EXTREMETIES. CAP REFILL TIME <3. RIGHT FOOT IS COOL TO TOUCH COMPARED TO LEFT. CAP REFILL TIME/COLOR/PULSES EQUAL BILATERALLY. GI: VITAL HP INFUSING AT GOAL RATE OF 40MLS/HR, TOLERATING WELL. ABDOMEN RELAXED WITH BOWELS SOUNDS PRESENT IN ALL 4 QUADRANTS. RECTAL TUBE IN PLACE WITH SOFT BROWN STOOL IN TUBE. : ROONEY PATENT AND DRAINING CLEAR YELLOW URINE TO GRAVITY. SKIN: RASH NOTED ON DORSAL THIGHS (SEE PICTURES). REMAINING SKIN ASSESSMENT REMAINS UNCHANGED. PSYCH: UNABLE TO ASSESS DUE TO SEDATION. REMAINS UNCHANGED FROM PREVIOUS ASSESSMENT.
--- NOTE | 2021-11-28 19:16 | NUR ---
ASSUMED CARE OF PATIENT 1909. REPORT RECEIVED AT BEDSIDE. PT PRONE AND INTUBATED VENTILATORY SUPPORT AND IS TOLERATING WELL. PT VENT SETTINGS ARE AC RR 26/390/ PEEP 12/45% FIO2. PT VSS. FAMILY AT BEDSIDE AND SUPPORTIVE OF PATIENT. WILL REVIEW CHART AND PLAN OF CARE FOR THIS PATIENT.
--- NOTE | 2021-11-29 | NUR ---
FOLLOW UP ASSESSMENT COMPLETED ON THIS PATIENT. PT REMAINS SEDATED AND PRONE ON VENT SUPPORT AND IS TOLERATING IT WELL. NO CHANGES NOTED IN PATIENT ASSESSMENT. VSS, NO FEVER NOTED. PT REPOSITIONED Q2H AND HEAD TURNED WITH EACH REPOSITION. ORAL CARE PERFORMED PER PROTOCOL. WILL CONTINUE TO MONITOR
[2021-11-29 04:00] LABS: Hematocrit 26.7 % (37.0-53.0); Hemoglobin 8.7 g/dL (13.5-17.5); Mean Corpuscular HGB 31.1 pg (26.0-34.0); Mean Corpuscular HGB Conc 32.6 g/dL (31.5-36.5); Mean Corpuscular Volume 95 fL (80-100); Mean Platelet Volume 11.3 fL (9.1-12.4); Platelet Count 351 K/mm3 (150-400); RDW Coefficient Variation 15.8 % (11.7-14.2); RDW Standard Deviation 55.8 fL (35.1-46.3); White Blood Cell Count 12.91 K/mm3 (4.00-11.30)
[2021-11-29 04:18] LABS: Albumin/Globulin Ratio 0.2 (0.8-1.8); Bilirubin, Total 0.7 mg/dL (0.1-1.0); Bun/Creatinine Ratio 59.9 (12.0-20.0); Calcium, Blood 8.3 mg/dL (8.5-10.1); Creatinine, Blood 0.77 mg/dL (0.60-1.20); Globulin, Blood 5.2 g/dL (2.2-4.0); Magnesium, Blood 1.3 mg/dL (1.6-2.4); Phosphorus, Blood 3.8 mg/dL (2.5-4.9); Potassium, Blood 3.1 mmol/L (3.5-5.5); Total Protein, Blood 6.2 g/dL (6.4-8.2)
[2021-11-29 05:56] LABS: BAND PERCENT MAN 10 % (0-8); BASOPHILS ABSOLUTE MAN 0.12 K/mm3 (0.00-0.23); BASOPHILS PERCENT MAN 1 % (0-2); EOSINOPHILS ABSOLUTE MAN 0.25 K/mm3 (0.00-0.68); EOSINOPHILS PERCENT MAN 2 % (0-6); LYMPHOCYTES ABSOLUTE MAN 0.38 K/mm3 (0.84-5.20); LYMPHOCYTES PERCENT MAN 3 % (21-46); METAMYELOCYTE ABSOLUTE MAN 0.25 K/mm3 (0.00-0.00); METAMYELOCYTE PERCENT MAN 2 % (0-0); MONOCYTES ABSOLUTE MAN 0.12 K/mm3 (0.16-1.47); MONOCYTES PERCENT MAN 1 % (4-13); MYELOCYTE ABSOLUTE MAN 0.25 K/mm3 (0.00-0.00); MYELOCYTE PERCENT MAN 2 % (0-0); NEUTROPHILS ABSOLUTE MAN 11.48 K/mm3 (1.96-9.15); SEG NEUTROPHILS PERCENT MAN 79 % (41-73); TOTAL CELLS COUNTED 100
--- NOTE | 2021-11-29 07:14 | NUR ---
PT RESTED COMFORTABLY OVERNIGHT SEDATED ON THE VENT. VSS. GLUTEAL RASH UNCHANGED. CALL TO DR SOLIS FOR ELECTROLYTE REPLACEMENT. ORDERS RECEIVED. NO CHANGES TO DRIPS OR CHANGES IN PT ASSESSMENT. REPORT GIVEN TO ONCOMING NURSE.
--- NOTE | 2021-11-29 09:56 | NUR ---
ASSUMED CARE OF PT @0700 FROM ZONIA ASTORGA. PT IN PRONE POSTION. SEDATED W/PROPOFOL 50MCG/KG/MIN AND FENTANYL 75MCG/HR, INTUBATED WITH VENT SETTINGS ACVC 26/390/12/45%. O2 SATS >92%, RR 26, HR 96, BP STABLE W/MAP >65. ROONEY CATHETER PATENT AND DRAINING CLEAR YELLOW URINE TO GRAVITY. RECTAL TUBE IN PLACE.
--- NOTE | 2021-11-29 10:30 | NUR ---
PT REPOSITIONED TO SUPINE. TOLERATED WELL. FULL BED BATH PERFORMED. SKIN TEAR/PRESSURE WOUND NOTED UNDER RIGHT CHEEK ANCHORFAST (SEE PICTURE). CLEANED AND POLYMEM CLOTH STRIP PLACED.
--- NOTE | 2021-11-29 16:37 | NUR ---
NOTED RADIOLOGY REPORT RE: ET PLACEMENT. PER DR. SOLIS, ETT PLACEMENT IS APPRORIATE, PLAN TO MAINTAIN CURRENT POSITIONING AT 25cm @GUM.
--- NOTE | 2021-11-29 19:04 | NUR ---
END OF SHIFT SUMMARY NEURO: PT SEDATED W/PROPOFOL AT 50MCG/KG/MIN AND FENTANYL 75MCG/HR. PROPOFOL PUT ON STANDBY @1230 FOR APPROX 1HR THEN RESTARTED AT 50MCG/KG/MIN. PT WAS MOVING EXTREMETIES AND FACE TO VERBAL STIMULI FROM FAMILY. PT GRIMACES DURING POSITION CHANGES. PUPILS PERRL. NO GAG REFLEX. COUGH REFLEX PRESENT. MUSCULOSKELETAL: NEEDS MAXIMUM CARE FOR ADL'S AND REPOSITIONING. PLACED IN SUPINE POSITION AT 1030 AND PT TOLERATED WELL. PT TO REMAIN IN SUPINE POSITION. RESPIRATORY' ACVC 26/390/12/55% AND CURRENTLY O2 SATS >90%. PT IS DESATING INTO THE 80'S DURING REPOSITIONING. SUCTIONING WHITE PURULENT DISCHARGE. LUNGS ARE COURSE THROUGHOUT AND DIM AT BASES. ETT 8.0cm, 25cm AT GUMS. CARDIAC: NSR OF 80-90"S, SBP STABLE 80-90'S WITH MAP >65. MODERATE EDEMA IN ALL EXTEMETIES. CAP REFILL TIME <3. EQUAL PULSES AND WARMTH. PEDAL AND TIBIAL PULSES WITH DOPPLER. HEPARIN CURRENTLY INFUSING AT 24U/KG/HR. GI: VITAL HP INFUSING AT GOAL RATE OF 40MLS/HR, TOLERATING WELL. RECTAL TUBE REMOVED THIS AM DUE TO NO STOOL OUTPUT FOR APPROX. 36 HOURS. ABDOMEN RELAXED WITH BOWEL SOUNDS PRESENT IN ALL 4 QUADRANTS. : ROONEY PATENT AND DRAINING YELLOW URINE TO GRAVITY. SKIN: SMALL WOUND NOTED UNDER ET SECUREMENT DEVICE, PADDING PLACED. SKIN ASSESSMENT REMAINS OTHERWISE UNCHANGED. PSYCH: UNABLE TO ASSESS DUE TO SEDATION. REMAINS UNCHANGED FROM PREVIOUS ASSESSMENT.
--- NOTE | 2021-11-29 20:00 | NUR ---
ASSUMED CARE OF PT AT 1915. REPORT RECEIVED AT BEDSIDE. PT PRESENTS IN BED. INTUBATED. PLAN TO KEEP PT SUPINE THIS NIGHT. PT'S IN ROOM. PT IN NO APPARENT DISTRESS. WILL REVIEW CHART AND PLAN OF CARE FOR THIS PT.
--- NOTE | 2021-11-30 | NUR ---
AFTER REPOSITIONING AND SUCTIONING, PT BECOMES HYPOXIC WITH 70-85 PERCENT SATURATION. CALL MADE TO DR SOLIS, AND HE RECOMMENDED PRONING PT WHICH WAS DONE. PT'S FIO2 WAS INCREASED TO 90 PERCENT WHEN HE WAS HAVING RESPIRATORY DIFFICULTIES. SINCE PRONING, PT HAS BEEN TITRATED DOWN TO 45 PERCENT FIO2. PT MAINTAINS SATURATIONS > 90 PERCENT. WILL CONTINUE TO MONITOR.
--- NOTE | 2021-11-30 06:30 | NUR ---
HAVE DONE HEAD TURN AND REPOSITIONING Q 3-4 HOURS THROUGH THE NIGHT. PT TOLERATES WELL. PT'S HAS ROOMED IN FOR THE NIGHT. WILL CONTINUE TO MONITOR, AND WILL REPORT OFF TO ONCOMING RN.
[2021-11-30 06:48] LABS: Hematocrit 26.5 % (37.0-53.0); Hemoglobin 8.6 g/dL (13.5-17.5); Mean Corpuscular HGB 31.5 pg (26.0-34.0); Mean Corpuscular HGB Conc 32.5 g/dL (31.5-36.5); Mean Corpuscular Volume 97 fL (80-100); Platelet Count 378 K/mm3 (150-400); RDW Coefficient Variation 15.8 % (11.7-14.2); RDW Standard Deviation 55.8 fL (35.1-46.3); Red Blood Cell Count 2.73 M/mm3 (4.30-5.90); White Blood Cell Count 14.95 K/mm3 (4.00-11.30)
[2021-11-30 06:59] LABS: Bun/Creatinine Ratio 59.7 (12.0-20.0); Calcium, Blood 8.2 mg/dL (8.5-10.1); Creatinine, Blood 0.72 mg/dL (0.60-1.20); Potassium, Blood 3.5 mmol/L (3.5-5.5)
--- NOTE | 2021-11-30 09:07 | NUR ---
ASSUMED CARE OF PATIENT AT 0700, HE WAS LYING PRONE FACING TO THE RIGHT, AT THE BEDSIDE, CURLED IN A CHAIR, SLEEPING. PT ON VENTILATOR, ACVC 26/390/12/45%, LUNG CARD CLEAR BUT DIMINISHED T/O. SATS 93%. VHP @ 40ML/HR BAG EMPTYING, COMPLETE SYSTEM CHANGE. PROPOFOL @ 55MCG/KG/MIN, FENTANYL @ 75MCG/HR, HEPARIN @ 24U/KG/HR, NS TKO X 2 ALL TO ALTHEA PICC, PATENT AND INFUSING WELL WITH GOOD BLOOD RETURN FOR LABS. DIFFICULT TO HEAR BOWEL TONES IN PRONE POSITION, TUBE FEEDING WITHOUT ANY RESIDUAL. HANDS/FEET EDEMATOUS BUT PULSES PALPABLE X 4, SKIN WARM AND DRY. ROONEY TO GRAVITY DRAINAGE WITH CLEAR YELLOW RETURN. HEAD TURN AND REPOSITION TO LEFT WITH R.T.X2. BACK AND BUTTOCKS WITH GOOD SKIN, INTACT. HEELS DRY/CRACKED. ORAL CARE COMPLETED, WATCHING FOR SORE AREAS, NO BLEEDING NOTED.
--- NOTE | 2021-11-30 12:01 | NUR ---
PT REPOSITIONED, AT BEDSIDE. BOTH R/T'S AVAILABLE FOR HEAD TURN. CPT AVAIL WELL. PT TOLERATED WELL WITH MINIMAL CHANGE IN VITAL SIGNS. FEET AND LEGS RUBBED WITH LOTION,AFTER SOAKING IN THE BATH HATS, CALLUSES REMOVED. ANKLE AND KNEE ROM DONE. COUPLE OF VISITORS IN, OKAYED BY . VSS T/O. BG LEVEL WNL, NO COVERAGE INDICATED.
--- NOTE | 2021-11-30 15:16 | NUR ---
BRANDI WAS JUST SUPINATED, TOLERATED WELL, PADDING REMOVED FROM BOTH KNEES AND HIPS WITH NO ZAFAR NOTED. RIGHT GROIN WITH EVIDENCE OF PREVIOUS PUNCTURE SITE THAT IS COVERED. LEFT THIGH WITH SMALL SCRATCH THAT BEGAN TO BLEED ONCE IT WAS CLEANED UP. PT HAD SMALL LIQUID BM PRIOR TO TURN WHEN HE BEGAN COUGHING. FACE WASHED WITH WARM WATER, EYES OPENED, NO ANSWERS TO QUESTIONS NOTED. HEART RATE STABLE, BP 114/78, SATS 91%.
--- NOTE | 2021-11-30 15:58 | NUR ---
SINCE BECOMING SUPINE, PT HAS INCREASED IN FIO2 TO 55%, HE IS NOW 91% AND SITTING IN A RECLINE POSITION. BP LABILE.
--- NOTE | 2021-11-30 18:29 | NUR ---
SUMMARY: BRANDI HAS BEEN SUPINE SINCE AROUND 1500, HE IS UP TO 55% FIO2 ON THE VENTILATOR WITH SATS 89-91%. SAID TO RE-PRONATE HIM IF HIS OXYGEN REQUIREMENTS WENT UP TO 60% FIO2. HE HAS MAINTAINED THE SETTINGS PREVIOUS. HE HAS BEEN CONSISTENT WITH BREATHING WITH THE VENTILATOR AND VERY LITTLE OVER BREATHING. HE HAS DONE SOME IN THE LAST HOUR OR SO. HIS HAS BEEN AWAY MOST OF THE AFTERNOON, SHE RETURNED AROUND 1700 WITH A FRIEND TO PRAY OVER HER . SHE HAS SINCE LEFT AND A COUPLE OF OTHER GENTLEMEN WHE WERE HERE EARLIER RETURNED TO VISIT. HE DIDN'T SEEM DISTURBED BY THEIR PRESENCE. HIS TUBE FEED CONTINUES WITH VHP @ 40ML/HR, WITH MINIMAL RESIDUAL. PROPOFOL @ 55MCG/KG/MIN, HEPARIN @ 24U/KG/HR, FENTANYL ELECTRONIC TECHNOLOGIST @ 75MCG/HR, MAINTENANCE FLUIDS FOR ABX @ TKO X 2. ETT SUCTIONING RETURNS THIN WHITE, COUGH IS OCC. PT HAS TOLERATED REPOS. W/O DROPPING SATS. WILL CONTINUE TO MONITOR AND REPORT TO NEXT SHIFT.
[2021-12-01 03:53] LABS: Hematocrit 26.5 % (37.0-53.0); Hemoglobin 8.7 g/dL (13.5-17.5); Mean Corpuscular HGB 31.2 pg (26.0-34.0); Mean Corpuscular HGB Conc 32.8 g/dL (31.5-36.5); Mean Corpuscular Volume 95 fL (80-100); Mean Platelet Volume 11.1 fL (9.1-12.4); NRBC ABSOLUTE 0.02 K/mm3 (0.00-0.02); NRBC Auto 0.1 /100 WBC (0.0-0.2); Platelet Count 428 K/mm3 (150-400); RDW Coefficient Variation 15.6 % (11.7-14.2); Red Blood Cell Count 2.79 M/mm3 (4.30-5.90); White Blood Cell Count 20.79 K/mm3 (4.00-11.30)
[2021-12-01 04:18] LABS: Bun/Creatinine Ratio 54.1 (12.0-20.0); Creatinine, Blood 0.8 mg/dL (0.60-1.20); Magnesium, Blood 1.3 mg/dL (1.6-2.4); Phosphorus, Blood 3.4 mg/dL (2.5-4.9); Potassium, Blood 3.4 mmol/L (3.5-5.5)
[2021-12-01 04:43] LABS: BAND PERCENT MAN 4 % (0-8); BASOPHILS PERCENT MAN 0 % (0-2); EOSINOPHILS ABSOLUTE MAN 1.03 K/mm3 (0.00-0.68); EOSINOPHILS PERCENT MAN 5 % (0-6); LYMPHOCYTES ABSOLUTE MAN 0.83 K/mm3 (0.84-5.20); LYMPHOCYTES PERCENT MAN 4 % (21-46); MONOCYTES ABSOLUTE MAN 0.62 K/mm3 (0.16-1.47); MONOCYTES PERCENT MAN 3 % (4-13); MYELOCYTE PERCENT MAN 1 % (0-0); NEUTROPHILS ABSOLUTE MAN 18.08 K/mm3 (1.96-9.15); SEG NEUTROPHILS PERCENT MAN 83 % (41-73); TOTAL CELLS COUNTED 100
--- NOTE | 2021-12-01 06:19 | NUR ---
PT INTUBATED/SEDATED. VENT MANAGED BY RT. COPIOUS ET SECRETIONS SCANT ORAL SECRETIONS. ANASARCA. TF AT GOAL. DIURESIS ROONEY FOR ACCURATE UO. Q2 SLIGHT TURNS. PT DESAT TO LOW 70'S WITH MOVEMENT OR TURNS. ROOMING IN OVERNIGHT - UPDATED ON PLAN ON CARE
--- NOTE | 2021-12-01 07:57 | NUR ---
ASSUMED CARE OF PT AT 0700, HE IS CURRENTLY ON THE VENT AC/VC /390/. RATE CONSISTENT WITH VENT. SATS 94%, COUGH. HEPARIN GTT PLACED ON SB, TF TURNED OFF FOR TRACH PROCEDURE TODAY. FENTANYL @ 75MCG/HR, PROPOFOL @ 55MCG/KG NS @ TKO, LEVO @ 2MCG. BELLY QUIET, ROONEY TO GRAVITY DRAINAGE, SLEEPING AT BEDSIDE.
--- NOTE | 2021-12-01 15:32 | NUR ---
SUMMARY OF TRACHEOSTOMY PLACEMENT: , JEFE HAMMOND AND JUAN JOSÉ, RT, PAULINE AND GILDARDO RN; PRESENT IN ROOM AT TIME OF PROCEDURE. 1436 LIDOCAINE LOCAL 2ML FENTANYL 50MCG GIVEN, 1440 5MG VERSED GIVEN, 1446 ROCURONIUM 50, 1448 PROCEDURE START, 1452 TRACH PLACED, TRANSFERRED VENTILATOR TO [facility], SUTURED IN PLACE, XRAY CONFIRMATION. ATTEMPTS TO PLACE DOBBHOFF FEEDING TUBE X 2, UNSUCCESSFUL, WILL TRY AGAIN TOMORROW. PT WAS TITRATED TO 65MCG/KG PROPOFOL, NOW BACK DOWN TO 50MCG/KG/MIN. HEPARIN TO REMAIN OFF TIL AFTER 2100.
--- NOTE | 2021-12-01 16:41 | NUR ---
TITRATING NOREPINEPHRINE DOWN AFTER NEEDING TO GO TO 6MCG/MIN WITH THE SEDATION. ORAL CARE COMPLETED, PT COUGHING BUT SATS MAINTAINING AT 93% ON 65% FIO2.
--- NOTE | 2021-12-01 17:01 | NUR ---
JUST SPOKE WITH RITA BRANDI'S . UPDATE GIVEN. HAD PREVIOUSLY ATTEMPTED TO PHONE HER AFTER THE PROCEDURE AND THE LINE WAS BUSY. MENTIONED THAT TO HER. SHE NOTED THAT SHE IS HAVING TROUBLE WITH HER PHONE INSIDE THE HOSPITAL.
--- NOTE | 2021-12-01 18:05 | NUR ---
BRANDI CONTINUES ON VENTILATOR, NOW TO TRACH RATE 20, vT 380, PEEP 12, 65% FIO2. SATA MID 90'S. TURNED Q.2, LUNGS CLEAR. ABD SOFT, NON TENDER TO PALP. ROONEY TO GRAVITY DRAINAGE. NOREPINEPHRINE @ 2 MCG/MIN, HEPARIN REMAINS ON SB, PROPOFOL @50MCG/KG, NS TKO x2. FENTANYL 75 MCG/HR. NO DOBBHOFF AT THIS TIME. WILL TRY AGAIN LATER. CBG'S Q6H W/ COVERAGE. SOME FACIAL EXPRESSIONS, SOME REACTIONS TO VERBAL STIMULI. STILL VERY SLEEPY. WILL CONTINUE TO MONITOR AND TREAT.
--- NOTE | 2021-12-01 19:45 | NUR ---
PATIENT RESTING QUIETLY WITH FAMILY AT BEDSIDE. TRACH IN PLACE MIDLINE WITH VENT SET AC VC+ 20, TV 380, PEEP 12, FIO2 65% SUCTIONING CLEAR TO WHITE SECRETIONS. TRACH POSITIONAL WITH REPOSITIONING. AREA AROUND TRACH CLEAN AND DRY WITH SUTURES IN PLACE. PLAN TO RESTART HEPARIN DRIP AFTER 2100. PATIENT SEDATED WITH PROPOFOL 50 MCG, AND FENTANYL 75 MCG/HR. PATIENT OPENS EYES TO STIMULI, NO MOVEMENT SEEN IN EXTREMITIES. LEVOPHED 4 MCG FOR HYPOTENSION TITRATE TO KEEP MAP >65.
--- NOTE | 2021-12-01 21:20 | NUR ---
CLARIFIED WITH PHARMACY REGARDING RATE FOR HEPARIN RESTART. HEPARIN 24 UNITS/KG/HR
[2021-12-02 03:29] LABS: Hematocrit 27.5 % (37.0-53.0); Hemoglobin 8.8 g/dL (13.5-17.5); Mean Corpuscular HGB 30.1 pg (26.0-34.0); Mean Corpuscular Volume 94 fL (80-100); Mean Platelet Volume 10.8 fL (9.1-12.4); NRBC ABSOLUTE 0.02 K/mm3 (0.00-0.02); NRBC Auto 0.1 /100 WBC (0.0-0.2); Platelet Count 442 K/mm3 (150-400); RDW Coefficient Variation 15.5 % (11.7-14.2); RDW Standard Deviation 53.4 fL (35.1-46.3); Red Blood Cell Count 2.92 M/mm3 (4.30-5.90); White Blood Cell Count 23.95 K/mm3 (4.00-11.30)
[2021-12-02 03:54] LABS: BAND PERCENT MAN 4 % (0-8); BASOPHILS PERCENT MAN 0 % (0-2); Bun/Creatinine Ratio 47.9 (12.0-20.0); Calcium, Blood 8.4 mg/dL (8.5-10.1); Creatinine, Blood 0.77 mg/dL (0.60-1.20); EOSINOPHILS ABSOLUTE MAN 1.19 K/mm3 (0.00-0.68); EOSINOPHILS PERCENT MAN 5 % (0-6); LYMPHOCYTES ABSOLUTE MAN 1.19 K/mm3 (0.84-5.20); LYMPHOCYTES PERCENT MAN 5 % (21-46); METAMYELOCYTE ABSOLUTE MAN 0.23 K/mm3 (0.00-0.00); METAMYELOCYTE PERCENT MAN 1 % (0-0); MONOCYTES ABSOLUTE MAN 0.47 K/mm3 (0.16-1.47); MONOCYTES PERCENT MAN 2 % (4-13); MYELOCYTE ABSOLUTE MAN 0.23 K/mm3 (0.00-0.00); MYELOCYTE PERCENT MAN 1 % (0-0); Magnesium, Blood 1.6 mg/dL (1.6-2.4); NEUTROPHILS ABSOLUTE MAN 20.59 K/mm3 (1.96-9.15); Phosphorus, Blood 4.1 mg/dL (2.5-4.9); Potassium, Blood 3.6 mmol/L (3.5-5.5); SEG NEUTROPHILS PERCENT MAN 82 % (41-73); TOTAL CELLS COUNTED 100
--- NOTE | 2021-12-02 06:44 | NUR ---
SUMMARY PATIENT MORE AWAKE NIGHT PROGRESSING, OPENS EYES TO SLIGHT STIMULI MAKING GOOD EYE CONTACT. CONTINUE TO SEE NO MOVEMENT IN EXTREMITIES. PROPOFOL 50 MCG AND FENTANYL 75 MCG/HR FOR SEDATION. TRACH REMAINS MIDLINE WITH NO CHANGES TO VENT SETTINGS T/O NIGHT. SMALL AMT OF BLOODY DRAINAGE AROUND STOMA. TRACH REMAINS POSITIONAL T/O NIGHT. SECRETIONS VIA TRACH CONTINUE TO BE CLEAR TO WHITE. HEPARIN RESTARTED 2114 AT HEPARIN 24 UNITS/KG/HR. NO CHANGES AFTER ANTI X THIS AM PER PHARMACY.
--- NOTE | 2021-12-02 07:36 | NUR ---
Received report from Noc RN. Patient has newer trach 8.0 shiley and vent settings of 20/380/65/12 and sats 97%. Trach area clean and dry with minimal serous fluid at site. He has PICC line to ALTHEA, dressing intact and asite WNL's and is infuisng Fentanyl 75 mcg/hr, Propofol at 50 mcg/kg/min, NS TKO x2, Heaprin at 24 units/kg/hr, and Levophed at 2 mcg/min for systolic in the 90's and MAP >65. Patient has patent 14 Fr Hamlin draining to gravity tea colored urine. He has right groin site with CHG dressing in place that is soft and palpable no swelling or oozing. He has SCD's bilateral LE's. He has small dressing to large toe of right foot and another to lateral side of left foot, both c/d/I. sleeping at bedside.
--- NOTE | 2021-12-02 10:42 | NUR ---
awoke and gave her update. Talked with care management to give her update on plan. Repositioned and modified position as trac is very positional. With help from air conditioning equipment mechanic was able to get Dobhoff placed in right nares and xrayed called stated in stomach and Dr Villafuerte gave approval to use and just gave all am medsIV and through dobhoff. Systolic in 113 and MAP > 65. Reduced FiO2 back to 65% after air conditioning equipment mechanic increased pre procedure and sats 96% on original settings. Had Avinash RN place Levophed on standby and see if systolic remains up and MAP >65. Have suction bloody oral secretions and thin white from ET.
--- NOTE | 2021-12-02 11:52 | NUR ---
Repositioned and boosted patient. Turned Levophed back on at 2 mcg/min for systolics in the 80's and now 98 with MAP's >65. has gone to take a break. CBG 151. Talking with Dr Villafuerte to see if wanting to re-start TF since Dobhoff is in now. No other changes to vent or gtt's.
--- NOTE | 2021-12-02 13:08 | NUR ---
Patient has been resting off and on and when awake interacting with staff. We have had her on bedpan several times with only gas and urine. She remains in attends and tells her grandmother when she needs to go whom is at bedside. She remains on RA and sats 94%.
--- NOTE | 2021-12-02 15:00 | NUR ---
Dr Villafuerte has been by earlier and made some med adjustments. Restarted Pivot 1.5 at 10 ml/hr per Dr Villafuerte and increase by 10 ml/hr q8. Repositioned and oral care done. Reduced FiO2 to 55% and patient sats >90%. Family at bedside.
--- NOTE | 2021-12-02 18:12 | NUR ---
Patient remains with 8.0 trach and vent settings of AC/VC+ 20/380/55/10 and sats 96%. He opens eyes and tracks when caring for him. He has PICC line to [facility] and is infusing Heparin 24 units/kg/hr, Propofol 50 mcg/kg/min, NS TKO x2 and levophed at 1 mcg/min, and Fentanyl CORE WINDING OPERATOR at 75 mcg/hr. He has Dobhoff tube placed today and is infusing 10ml/hr Pivot 1.5 and 30 ml water flushes q4. 14 Fr Hamlin draining to gravity 1700 mllight tea colored urine. Systolic 114 and MAP >65, have tried several times to place Levophed on standby and systolic drops to 70-80's. Family has remained at bedside all day.
--- NOTE | 2021-12-02 20:19 | NUR ---
ASSUMED CARE PT INTUBATED WITH TRACH MIDLINE. PT'S EYES ARE OPEN. STILL DOES NOT FOLLOW COMMONDS, BUT TRACKS WITH EYES INTERMITTENTLY WHEN AWAKE. SPO2 >92% W/ VENT @ 20/380/10/55%. HR IN THE 70-80'S AND SBP 109, MAP >65 WHILE ON 1MCG/MIN OF LEVO. PROPOFOL RUNNING AT 50, FENTANYL 75MCG, AND HEPARIN AT 24U.
--- NOTE | 2021-12-02 22:31 | NUR ---
PATIENT BIOX DOWN TO 87% AFTER REPOSITIONING TO LEFT SIDE. SUCTIONED MOD AMT OF THICK WHITE SPUTUM AND INCREASED FIO2 TO 65% TO MAINTAIN BIOX >90%. RT NOTIFIED. TRACH REMAINS MIDLINE AND NO AIR LEAK HEARD.
--- NOTE | 2021-12-02 23:00 | NUR ---
UPDATE TUBE FEEDING TITRATED UP TO 20MLS AN HOUR.
--- NOTE | 2021-12-03 03:41 | NUR ---
ATTEMPTED TO DECREASE SEDATION, PROPOFOL DOWN TO 48 MCG, PATIENTS RESP UP TO 30'S AND BIOX DOWN TO 86% PATIENT REPOSITIONED TO SUPINE FROM RIGHT SIDE, SUCTIONED, PROPOFOL PUT BACK TO 50 MCG AND ATIVAN 2 MG IV GIVEN. RESP NOW DOWN TO 20, BIOX 98% RT IN ROOM ADJUSTING VENT SETTINGS. TRACH REMAINS POSITIONAL BUT LEAK WAS EASILY FIXED AFTER REPOSITIONING. SUCTIONED SMALL AMT OF WHITE AND CLEAR SPUTUM. VENT PC 20/10 70%
--- NOTE | 2021-12-03 04:16 | NUR ---
PATIENT BACK ON PREVIOUS VENT SETTINGS OF AC VC+ 20. TV 380, PEEP 10, FIO2 70 AFTER CHEST CPT WITH VEST. OBTAINED MIN SECRETIONS WITH SUCTIONING AFTER CPT. PROPOFOL 50 MCG AND FENTANYL 75 MCG/HR FOR SEDATION.
[2021-12-03 04:22] LABS: BASOPHILS PERCENT AUTO 1 % (0-2); EOSINOPHILS ABSOLUTE AUTO 0.12 K/mm3 (0.00-0.68); EOSINOPHILS PERCENT AUTO 1 % (0-6); Hematocrit 26.5 % (37.0-53.0); Hemoglobin 8.6 g/dL (13.5-17.5); IMMATURE GRAN PERCENT AUTO 5 % (0-1); LYMPHOCYTES ABSOLUTE AUTO 1.84 K/mm3 (0.84-5.20); LYMPHOCYTES PERCENT AUTO 9 % (21-46); MONOCYTES ABSOLUTE AUTO 0.93 K/mm3 (0.16-1.47); MONOCYTES PERCENT AUTO 5 % (4-13); Mean Corpuscular HGB 30.4 pg (26.0-34.0); Mean Corpuscular HGB Conc 32.5 g/dL (31.5-36.5); Mean Corpuscular Volume 94 fL (80-100); Mean Platelet Volume 10.9 fL (9.1-12.4); NEUTROPHILS ABSOLUTE AUTO 15.89 K/mm3 (1.96-9.15); NEUTROPHILS PERCENT AUTO 80 % (41-73); NRBC ABSOLUTE 0.02 K/mm3 (0.00-0.02); NRBC Auto 0.1 /100 WBC (0.0-0.2); Platelet Count 429 K/mm3 (150-400); RDW Coefficient Variation 15.2 % (11.7-14.2); RDW Standard Deviation 52.6 fL (35.1-46.3); Red Blood Cell Count 2.83 M/mm3 (4.30-5.90); White Blood Cell Count 19.88 K/mm3 (4.00-11.30)
--- NOTE | 2021-12-03 04:24 | NUR ---
UPDATE PT DESATTED AFTER TITRATING PROPOFOL FROM 50 TO 48. 2MG OF ATIVAN WAS GIVEN AND JESSE RT USED VEST TO HELP LOOSEN SECRETIONS. VENT SETTINGS BACK TO PREVIOUS SETTINGS AFTER BEING TURNED TO PRESSURE. /
[2021-12-03 04:39] LABS: Albumin, Blood 1.6 g/dL (3.4-5.0); Anion Gap 6 mmol/L (6-16); Blood Urea Nitrogen 42 mg/dL (8-24); Bun/Creatinine Ratio 63.7 (12.0-20.0); CO2, Blood 37 mmol/L (21-32); Calcium, Blood 8.1 mg/dL (8.5-10.1); Chloride, Blood 90 mmol/L (98-108); Creatinine, Blood 0.66 mg/dL (0.60-1.20); Glomerular Filtration Rate 109 (60-); Glucose, Blood 164 mg/dL (70-99); Phosphorus, Blood 3.3 mg/dL (2.5-4.9); Potassium, Blood 3.4 mmol/L (3.5-5.5); Sodium, Blood 133 mmol/L (136-145)
--- NOTE | 2021-12-03 05:36 | NUR ---
SHIFT SUMMARY PT ON A VENTILATOR WITH A TRACHEOSTOMY. OPENS EYES TO VERBAL STIMULI. HR IN THE 80-90'S WITH MAP>65, LEVO ON STANDBY. PROPOFOL NOW AT 50MCG WITH PREVIOUS TITRATION CAUSING DESATTING. 2MG OF ATIVAN GIVEN. ROSS RT USED CPT VEST WITH MINIMAL SECRETIONS OBTAINED. SPO2 NOW >92% 20/380/10/70%. LEVO ON STANDBY SINCE 2129.
--- NOTE | 2021-12-03 07:28 | NUR ---
Received report from Nory Gilliland and Hugo RN. Patient has 8.0 Trach and is sedated on vent. His settings are AC/VC+ 20/380/70/10 and sats 93%. Patient opens eye and tracks to verbal stimuli, but does not follow command. He has PICC line to ALTHEA dressing intact and site WNL's and is infusing Heparin at 24 units/kg/hr, Propofol 50 mcg/kg/min, NS TKO x2 and Levophed remains on SB although systolic in the 80's and MAP> 65. He has Dobhoff tube to right nares placed yesterday and is infusing VHP and just increased to 30ml/hr. Patient has 14 Fr Hamlin draioning to gravit tea colored urine. He has several small healing wounds to right side of face, large toe to right foot and lateral distal left foot. He has SCD's bilateral to LE's and no restraints as he does not move distal extreities, not even gross movements. is sleeping at bedside.He has CHG dressing to gight groin C/D/I and no swelling or oozing from filter placement. Plan to transfwer to Vibra when ready and to continue to wean from higher vent settings.
--- NOTE | 2021-12-03 10:01 | NUR ---
patients sats were decreaseomg into the 80's and RT talked with Dr Villafuerte and wanted PEEP increased back to 12 and did not seem to help and placed him on 100% several time and ended up leaving him on 100% and started CPT. VSS systolic 100's. He is at 100% sats at vent settings of AC/VC+ 20/380/100/12. awake at bedside. Dr Villafuerte has been by to assess, no new orders.
--- NOTE | 2021-12-03 13:30 | NUR ---
Patient up in chair and has relaxed and am able to reduce FiO2 to 70% and PEEP 10. VSS, systolic 100's and MAP >65. No changes to gtt settings Heparin at 24 units/kg/hr, Propofol 50 mcg/kg/min, Fentanyl 75 mcg/hr, NS TKO x2. Family has been in and out to check on him. No other significant changes.
--- NOTE | 2021-12-03 15:30 | NUR ---
Patient remaisn in chair and have titrated FiO2 down. Current settings AC/VC+ 20/380/45/10 and sats 97%. No changes to gtt's. Patient resting quietly. called for current update, she was concerned about conversation with Dr Villafuerte about him stating poor outcome. VSS.
--- NOTE | 2021-12-03 18:42 | NUR ---
Patient placed back in bed at 1630 and tolerated well and settings are AC/VC+ 20/380/50/10 and sats 93%. Placed him in sitting position in bed and tolerates better. PICC ALTHEA and is infusing Heparin at 24 units/kg/hr, Propofol 50 mcg/kg/min, Fentanyl 75 mcg/hr, and NS TKO x2. 14 Fr dickerson draining to gravity light tea colored urine 1300 ml output. TF VHP at 40 ml/hr and 30 ml water flush Q4 through Dobhoff in right nares. RT in room turning PEEP to 8.
--- NOTE | 2021-12-03 22:02 | NUR ---
ASSUMED CARE AT 1900 PT AT BEDSIDE WITH FRIENDS. PT LAYING IN BED ON VENT VIA TRACH WITH SETTINGS AC/VC+ 20/380/10/50%; SUTURES IN PLACE; STOMA WNL. PT SEDATED WITH PROPOFOL INFUSING AT 50MCG/KG/MIN; MINIMALLY RESPONSIVE TO PAINFUL STIMULI; GAG AND COUGH PRESENT. AFEBRILE. NSR NOTED; HR 70-80'S. SBP 90-100; MAP 65-80. VHP INFUSING VIA DOBHOFF AT 40ML/HR (GOAL) WITH 30ML WATER FLUSHES Q4HR. ROONEY IN PLACE AND DRAINING TO GRAVITY. HEPARIN INFUSING AT 24U/KG/HR. FENTANYL INFUSING AT 75MCG/HR. DRESSING TO RT GROIN C/D/I. SEE SHIFT ASSESSMENT FOR FULL ASSESSMENT.
[2021-12-04 04:02] LABS: BASOPHILS ABSOLUTE AUTO 0.11 K/mm3 (0.00-0.23); BASOPHILS PERCENT AUTO 1 % (0-2); EOSINOPHILS ABSOLUTE AUTO 0.09 K/mm3 (0.00-0.68); EOSINOPHILS PERCENT AUTO 0 % (0-6); Hemoglobin 8.8 g/dL (13.5-17.5); IMMATURE GRAN ABSOLUTE AUTO 1.02 K/mm3 (0.00-0.10); IMMATURE GRAN PERCENT AUTO 5 % (0-1); LYMPHOCYTES ABSOLUTE AUTO 1.63 K/mm3 (0.84-5.20); LYMPHOCYTES PERCENT AUTO 8 % (21-46); MONOCYTES ABSOLUTE AUTO 1.28 K/mm3 (0.16-1.47); MONOCYTES PERCENT AUTO 6 % (4-13); Mean Corpuscular HGB 30.6 pg (26.0-34.0); Mean Corpuscular HGB Conc 32.6 g/dL (31.5-36.5); Mean Corpuscular Volume 94 fL (80-100); Mean Platelet Volume 10.7 fL (9.1-12.4); NEUTROPHILS ABSOLUTE AUTO 16.37 K/mm3 (1.96-9.15); NEUTROPHILS PERCENT AUTO 80 % (41-73); Platelet Count 413 K/mm3 (150-400); RDW Standard Deviation 51.7 fL (35.1-46.3); Red Blood Cell Count 2.88 M/mm3 (4.30-5.90)
[2021-12-04 04:30] LABS: Albumin, Blood 1.6 g/dL (3.4-5.0); Anion Gap 4 mmol/L (6-16); Blood Urea Nitrogen 36 mg/dL (8-24); Bun/Creatinine Ratio 65.1 (12.0-20.0); CO2, Blood 35 mmol/L (21-32); Calcium, Blood 8.5 mg/dL (8.5-10.1); Chloride, Blood 94 mmol/L (98-108); Creatinine, Blood 0.55 mg/dL (0.60-1.20); Glomerular Filtration Rate 116 (60-); Glucose, Blood 191 mg/dL (70-99); Phosphorus, Blood 2.5 mg/dL (2.5-4.9); Potassium, Blood 3.8 mmol/L (3.5-5.5); Sodium, Blood 133 mmol/L (136-145)
--- NOTE | 2021-12-04 06:42 | NUR ---
END OF SHIFT SUMMARY NO ACUTE EVENTS OVER NIGHT. PT CONT TO BE SEDATED WITH PROPOFOL INFUSING AT 50MCG/KG/MIN; FOR A SHORT AMOUNT OF TIME PT ON 45MCG/KG/MIN AND PT BECAME MORE ALERT, OPENING EYES, AND MOVING FACIAL MUSCLES; PT CONCERNED ABOUT COMFORT AND PT RR INCREASED, PROPOFOL INCREASED BACK TO 50MCG/KG/MIN. 8.[address] WITH VENT SETTINGS AC/VC+ 20/380/10/60%; SMALL AMOUNT OF THICK SPUTUM. HR 70-80'S. SBP 100-120; LEVOPHED OFF ALL NIGHT. DOBHOFF IN PLACE WITH VHP INFUSING AT GOAL. ROONEY IN PLACE WITH 1600ML OUTPUT. PICC TO ALTHEA MURPHY AND DRESSING C/D/I. WILL REPORT TO AM RN WHEN AVAILABLE.
--- NOTE | 2021-12-04 07:30 | NUR ---
ASSUMPTION OF CARE RECEIVED REPORT FROM JEANCARLOS ASTORGA, ASSUMED CARE OF PATIENT AT 0715. PATIENT SEDATED ON PROPOFOL OF 50MCG/KG AND FENTANYL 75MCG/HR. PATIENT OPENS EYES, DOES NOT MOVE BUE OR BLE. BLINKS EYES, TURNS HEAD PURPOSEFULY AND OPENED AND CLOSED MOUTH APPROPRIATELY. TRACH SECURED IN PLACE, VENT SETTINGS AC/VC+ 20/380/10/60%. SP02 IN HIGH 80'S, INCREASED FI02 TO 70%. DOBHOFF SECURED TO RIGHT NARE WITH TF AT GOAL OF 40ML/HR. ROONEY PATENT AND DRAINING CLEAR, YELLOW URINE. TO BEDSIDE. WILL REVIEW ORDERS AND TREAT PRESCRIBED.
--- NOTE | 2021-12-04 12:37 | NUR ---
SEDATION CHANGES PATIENT WITH EYE OPEN, NO OTHER PURPOSEFUL MOVEMENTS ON 60MCG/KG OF PROPOFOL AND 75MCG/HR OF FENTANYL. VITALS STABLE. AT 1115 PATIENT WITH EPISODES OF LOW SP02 TO LOW 80'S. FI02 WAS INCREASED, RT WAS NOTIFIED AND VEST CPT WAS STARTED. PATIENT DID NOT TOLERATE WITH RESPIRATIONS INCREASED TO 40'S, INCREASED PEAK PRESSURES AND BREATHING AGAINST VENT. VENT CONTINUOUSLY ALARMING. RT REMAINED IN ROOM EVALUATING TRACH PLACEMENT, SUCTIONING AND REPOSITIONED PATIENT WITH NO SUCCESS. DR. LUCERO WAS NOTIFIED VIA T/P, RECEIVED ORDERS FOR STAT CXR AND DR. LUCERO ARRIVED TO BEDSIDE. ATIVAN WAS GIVEN CHARTED DUE TO REQUIRING MORE SEDATION. ORDERS RECEIVED FOR IV PUSH OF ARMEN FOR TEMPORARY PARALYSIS TO ASSIST WITH VENT COMPLIANCE. SEDATION MEDICATIONS CHANGED PER DR. LUCERO. NEW ORDERS REVIEWED. PATIENT'S REMAINED AT BEDSIDE AND EDUCATED IN DETAIL REGARDING PATIENT'S STATUS AND MEDICATION CHANGES. SHE VERBALIZED UNDERSTANDING. PATIENT CURRENTLY WITH PEEP 10, FI02 100%, SP02 100%, RELAXED WITH NO EVIDENCE OF DISCOMFORT AT THIS TIME.
--- NOTE | 2021-12-04 18:02 | NUR ---
SHIFT SUMMARY PATIENT REMAINS SEDATED ON PROPOFOL AND PRECEDEX. COMPLIANT WITH VENT WITH FI02 80% AND SP02 100%. RES RATE IN THE 20'S. INNER CANNULA OF TRACH CHANGED BY RT. VITALS STABLE, MIDODRINE HELD FOR SBP ABOVE 130. ROONEY WITH ADEQUATE OUTPUT OF CLEAR, YELLOW URINE. CBG ABOVE 200, TREAT PRESCRIBED PER SLIDING SCALE. CONTINUES TO BE EDUCATED IN DETAIL ABOUT MEDICATION CHANGES, AND PATIENT'S CURRENT NEED FOR SEDATION. WILL REPORT TO ONCOMING RN.
--- NOTE | 2021-12-04 22:30 | NUR ---
ASSUMED CARE AT 1900 PT LAYING IN BED WITH AT BEDSIDE. PT SEDATED WITH PROPOFOL INFUSING AT 60MCG/KG/MIN AND PRECEDEX INFUSING AT 0.5MCG/KG/HR; MINIMALLY RESPONSIVE TO VERBAL AND PAINFUL STIMULI; COUGH AND GAG NOTED. ON VENT VIA TRACH WITH VENT SETTINGS AC/VC+ 20/380/10/60%; SCANT TO SMALL AMOUNT OF SECREATIONS FROM TRACH. HR 60'S; SBP 100. AFEBRILE. VHP INFUSING VIA DOBHOFF AT 40ML/HR (GOAL) WITH 30ML WATER FLUSHES Q4HR. ROONEY IN PLACE AND DRAINING TO GRAVITY. PICC TO ALTHEA PATENT, DRESSING C/D/I. HEPARIN INFUSING AT 24UNITS/KG/HR. SEE SHIFT ASSESSMENT FOR FULL ASSESSMENT.
[2021-12-05 03:52] LABS: Hematocrit 28.6 % (37.0-53.0); Hemoglobin 9.4 g/dL (13.5-17.5); Mean Corpuscular HGB Conc 32.9 g/dL (31.5-36.5); Mean Corpuscular Volume 94 fL (80-100); Mean Platelet Volume 10.6 fL (9.1-12.4); NRBC ABSOLUTE 0.04 K/mm3 (0.00-0.02); NRBC Auto 0.2 /100 WBC (0.0-0.2); Platelet Count 438 K/mm3 (150-400); RDW Coefficient Variation 15.1 % (11.7-14.2); RDW Standard Deviation 51.8 fL (35.1-46.3); Red Blood Cell Count 3.03 M/mm3 (4.30-5.90); White Blood Cell Count 23.74 K/mm3 (4.00-11.30)
[2021-12-05 04:16] LABS: Albumin, Blood 1.7 g/dL (3.4-5.0); Anion Gap 6 mmol/L (6-16); Blood Urea Nitrogen 32 mg/dL (8-24); Bun/Creatinine Ratio 59.8 (12.0-20.0); CO2, Blood 33 mmol/L (21-32); Calcium, Blood 8.4 mg/dL (8.5-10.1); Chloride, Blood 99 mmol/L (98-108); Creatinine, Blood 0.54 mg/dL (0.60-1.20); Glomerular Filtration Rate 116 (60-); Glucose, Blood 135 mg/dL (70-99); Phosphorus, Blood 3.3 mg/dL (2.5-4.9); Potassium, Blood 3.6 mmol/L (3.5-5.5); Sodium, Blood 138 mmol/L (136-145)
[2021-12-05 04:17] LABS: BAND PERCENT MAN 2 % (0-8); BASOPHILS PERCENT MAN 0 % (0-2); EOSINOPHILS ABSOLUTE MAN 0.23 K/mm3 (0.00-0.68); EOSINOPHILS PERCENT MAN 1 % (0-6); LYMPHOCYTES % ATYPICAL MANUAL 2 % (0-0); LYMPHOCYTES ABSOLUTE MAN 1.89 K/mm3 (0.84-5.20); LYMPHOCYTES PERCENT MAN 6 % (21-46); METAMYELOCYTE ABSOLUTE MAN 0.23 K/mm3 (0.00-0.00); METAMYELOCYTE PERCENT MAN 1 % (0-0); MONOCYTES ABSOLUTE MAN 1.18 K/mm3 (0.16-1.47); MONOCYTES PERCENT MAN 5 % (4-13); MYELOCYTE ABSOLUTE MAN 0.71 K/mm3 (0.00-0.00); MYELOCYTE PERCENT MAN 3 % (0-0); NEUTROPHILS ABSOLUTE MAN 19.46 K/mm3 (1.96-9.15); SEG NEUTROPHILS PERCENT MAN 80 % (41-73); TOTAL CELLS COUNTED 100
--- NOTE | 2021-12-05 06:35 | NUR ---
END OF SHIFT SUMMARY PT CONT TO BE ON THE VENT VIA TRACH WITH VENT SETTINGS AC/VC+ 20/380/10/60%; ONE EPISODE OF PT RR INCREASING TO THE HIGH 30'S-LOW 40'S; SCANT AMOUNT OF SECREATIONS SUCTIONED, INCREASED SEDATION, AND CALLED RT; RT DID A ROUND OF CPT AND RR FINALLY DECREASED TO MID 20'S. PT SEDATED WITH PROPOFOL INFUSING AT 60MCG/KG/MIN AND PRECEDEX AT 0.5MCG/KG/HR. AFEBRILE. HR 60-70'S. SBP 90-110. DOBHOFF IN PLACE WITH VHP INFUSING AT GOAL. ROONEY IN PLACE WITH 1650ML OUTPUT. HEPARIN INFUSING AT 24UNITS/KG/HR. WILL REPORT TO AM RN WHEN AVAILABLE.
--- NOTE | 2021-12-05 18:50 | NUR ---
SUMMARY PT INTUBATED VIA TRACH, SEDATED WITH PROPOFOL AND PRECEDEX. PT WAS ASYNCHRONOUS WITH THE VENT MOST OF THE DAY. GIVING PRNS IN CONJUNCTION WITH SEDATION. THIS EVENING PT IS MORE COMFORTABLE AND NOT ALARMING THE VENT CONSTANTLY. NO SEDATION VACATION DUE TO THIS ISSUE. BC'S DRAWN, SPUTUM SENT, AND UA ORDERED. CXR DONE AGAIN THIS AM TO MAKE SURE LUNGS WERE NOT WORSENING. NO OTHER CHANGES TODAY. AT BEDSIDE AND UPDATED T/O THE DAY.
--- NOTE | 2021-12-05 19:30 | NUR ---
ASSUMPTION OF CARE REPORT RECEIVED AT BEDSIDE FROM DAY STEEL CHIPPER. PT IS TRACHED AND APPEARS DROWSY ON THE VENT IN BED. PTS EYES ARE CLOSED BUT PT RESPONDS TO VERBAL STIMULI. PT IS SEDATED WITH PROPOFOL AND PRECEDEX. PT HAS BEEN REQUIRING INCREASED SEDATION AND PRN MEDICATIONS. PT IS TACHYPNENIC BUT O2 SATS ARE AT 100 PRECENT AT THIS TIME. PROPOFOL INCREASED TO 65 VITALS ARE STABLE. CHART CHECK COMPLETE. COLLECTING REPEAT UA. WILL ATTEMPT TO WEAN SEDATION PATIENT TOLERATES IT. WILL CONTINUE TO MONITOR.
[2021-12-05 20:19] LABS: Source, Urine Foley catheter
[2021-12-05 20:22] LABS: Bilirubin, Urine Neg (Neg); Blood, Urine Neg (Neg); Glucose Qualitative, Urine Neg (Neg); Ketones, Urine Neg (Neg); Leukocyte Esterase, Urine Neg (Neg); Nitrite, Urine Neg (Neg); Protein, Urine Neg (Neg); Specific Gravity, Urine 1.005 (1.003-1.022); Urobilinogen, Urine 1+ (Normal)
[2021-12-05 20:35] LABS: Appearance, Urine Clear (Clear); Color, Urine Yellow (P-Yellow)
--- NOTE | 2021-12-06 01:00 | NUR ---
FOLLOW UP ASSESSMENT PT REMAINS SEDATED ON VENTILATOR SUPPORT. PT OPENS EYES TO PAIN, BUT STILL IS NOT FOLLOWING COMMMANDS. PT HAS BEEN TACHYPNEIC THROUGHOUT THE SHIFT DESPITE PROPFOL BEING INCREASED TO 70. PRECEDEX HAS BEEN UPTITRATED TO 0.8 MCG. PT HAS BEEN EXHIBITING SIGNS OF PAIN AND AGITATION. PT HAS BEEN GIVEN FENTANYL AND ATIVAN TO HELP WITH THIS. VITALS HAVE OTHERWISE BEEN STABLE. PTS LUNGS ARE COARSE THROUGHOUT TO AUSCULTATION. PT SUCTIONED DOWN ETT AND NOTHING IS COMING OUT AT THIS TIME. PT REPOSITIONED IN BED AND TURNED RIGHT. MINIMAL STIMULATION PROVIDED DUE TO INCREASED WORK OF BREATHING. PT IS HAVING ADEQUATE URINE OUTPUT. PT ETT AND FC SECURE. AT BEDSIDE. WILL CONTINUE TO MONITOR.
[2021-12-06 03:40] LABS: Hematocrit 28.8 % (37.0-53.0); Hemoglobin 9.5 g/dL (13.5-17.5); Mean Corpuscular HGB 31.3 pg (26.0-34.0); Mean Corpuscular Volume 95 fL (80-100); Mean Platelet Volume 10.7 fL (9.1-12.4); NRBC ABSOLUTE 0.03 K/mm3 (0.00-0.02); NRBC Auto 0.1 /100 WBC (0.0-0.2); Platelet Count 390 K/mm3 (150-400); RDW Coefficient Variation 15.9 % (11.7-14.2); RDW Standard Deviation 54.7 fL (35.1-46.3); Red Blood Cell Count 3.04 M/mm3 (4.30-5.90); White Blood Cell Count 21.62 K/mm3 (4.00-11.30)
--- NOTE | 2021-12-06 03:46 | NUR ---
FOLLOW UP ASSESSMENT THIS ASSESSMENT AFTER PT WAS PULLED UP IN BED AND REPOSITIONED, THE PT STARTED BREATHING WITH RR IN 40S. RT CALLED TO BEDSIDE. PT HYPEROXYGENATED AND SUCTIONED WITHOUT BEING ABLE TO REMOVE MUCH SECRETIONS DESPITE PT SOUNDING VERY COARSE. PT SEDATION INCREASED TO PROP AT 80, PRECEDEX AT 0.9 4MG ATICAN GIVE, FENTANYL AND P.O PAIN MEDS. PT HR IS ALSO IN THE 130S. PT HAD AN EPISODE LIKE THIS LAST NIGHT AND IT RESOLVED. GIVING THE PT SOME TIME TO RECOVER ON 100 FIO2 AND TO ALLOW THE MEDICATIONS TO WORK. PT IS AFEBRILE AND BLOOD PRESSURE IS WNL. WILL CONTINUE TO MONITOR AND REACH OUT TO THE MEDICAL TEAM FOR SUGGESTIONS IF PT DOES NOT CALM AFTER THESE INTERVENTIONS. PT UOP IS ADEQUATE FOR THE EVENING AND IS RECEIVING TUBE FEEDS THROUGH [facility]. ETT AND ROONEY ARE SECURE.
[2021-12-06 04:02] LABS: Albumin, Blood 1.6 g/dL (3.4-5.0); Albumin/Globulin Ratio 0.4 (0.8-1.8); Bilirubin, Total 0.6 mg/dL (0.1-1.0); Calcium, Blood 8.2 mg/dL (8.5-10.1); Creatinine, Blood 0.5 mg/dL (0.60-1.20); Globulin, Blood 4.5 g/dL (2.2-4.0); Magnesium, Blood 1.2 mg/dL (1.6-2.4); Potassium, Blood 4.3 mmol/L (3.5-5.5); Total Protein, Blood 6.1 g/dL (6.4-8.2)
[2021-12-06 04:05] LABS: BAND PERCENT MAN 3 % (0-8); BASOPHILS PERCENT MAN 0 % (0-2); EOSINOPHILS PERCENT MAN 0 % (0-6); LYMPHOCYTES % ATYPICAL MANUAL 1 % (0-0); LYMPHOCYTES ABSOLUTE MAN 2.37 K/mm3 (0.84-5.20); LYMPHOCYTES PERCENT MAN 10 % (21-46); MONOCYTES ABSOLUTE MAN 0.64 K/mm3 (0.16-1.47); MONOCYTES PERCENT MAN 3 % (4-13); MYELOCYTE ABSOLUTE MAN 0.64 K/mm3 (0.00-0.00); MYELOCYTE PERCENT MAN 3 % (0-0); NEUTROPHILS ABSOLUTE MAN 17.94 K/mm3 (1.96-9.15); SEG NEUTROPHILS PERCENT MAN 80 % (41-73); TOTAL CELLS COUNTED 100
--- NOTE | 2021-12-06 05:13 | NUR ---
SHIFT SUMMARY PT SEDATED USING PROP AND PRECEDEX ON VENT THROUGHOUT THE SHIFT. PT CONSISTENTLY REQUIRED INCREASES IN SEDATION DESPITE PRN INTERVENTIONS. DR FLORES NOTIFIED THAT PT HR IN 140S AND RR IN THE 40'S. ASKED MD IF SHE WOULD LIKE TO ORDER ANY ADDITIONAL PRN FENT SINCE THE PATIENT SEEMS TO RESPOND TO THIS WELL. NO NEW ORDERS. OF 514 PT HR HAS DECREASED TO 115 AND RR HAVE DECREASED WITH FURTHER INCREASE IN PRECEDEX. PHARMACY REQUESTS HEPARIN GTT BE HELD FOR 1 HR AND BE RESTARTED AT NEW RATE. SEE EMAR FOR DETAILS. BP STABLE AT 102/75 (81) DESPITE LARGE AMOUNTS OF SEDATION/PRNS. WILL CONTINUE TO MONITOR.
--- NOTE | 2021-12-06 08:00 | NUR ---
PT SEDATED ON PROPOFOL @ 80 MCG/KG/MIN AND PRECEDEX @ 1.1 MCG/KG/MIN. PUPILS 2MM AND SLUGGISH. NO SPONTANEOUS MOVEMENT OF EXREMITIES.RR 40-60'S AND PT NON-COMPLIANT WITH VENTILATOR. MED WITH FENTANYL 50 MCG IVP X 1 AND ATIVAN 2 MG IVP X 1 WILL REDUCTION OF RR TO 40'S. LUNGS ARE COARSE AND DIMINISHED. TRACH SITE WITH SUTURES INTACT. MODERATED AMOUNT OF SANGINOUS DRAINAGE AROUND STOMA, TO TRACH TIES, AND PT GOWN. TRACH TO VENT AC/VC 12, TV 370, PEEP 10 , FIO2 60% SATS>90% TRACH SUCTION PRODUCTIVE OF MODERATE AMOUNT OF THICK, CARMONA SECRETIONS. ECG SHOWS ST WITH RATE 90-110'S. SBP TRENDING 90-110'S. MIDODRINE GIVEN.2+ EDEMA NOTED TO BILATERAL LOWER EXTREMITIES. DP/PT PULSES PALPABLE. HEPARIN DRIP CONTINUES @ 21 UNITS/KG/HR-ANTI-Xa @ 1100. DOBHOFF TO RIGHT NARE-PT TOLERATING TUBE FEEDS WELL. PT INCONTINENET OF SMALL AMOUNT OF BROWN LIQUID STOOL. NEW BETANCUR AND SKIN CARE DONE. SKIN TO COCCYX SLIGHTLY RED, BUT BLANCHES-REPOSTIONED. PT HAS SEVERAL SCABS ON HIS FEET. RIGHT FOOT ADOBE MAKER AND LEFT FOOT HAS POLYMEM BANDAIDE IN PLACE. ROONEY TO BSD WITH ADEQUATE AMOUNT OF DARK, YELLOW URINE TO UROMETER. ROUTINE AM LASIX GIVEN. PT SPOUSE AT BEDSIDE SLEEPING IN THE RECLINER CHAIR. WILL UPDATE WHEN SHE AWAKENS. DR. FLORES IN TO SEE PT. UPDATE GIVEN. ANTICIPATE CT OF HEAD THIS AM.
--- NOTE | 2021-12-06 10:00 | NUR ---
DR. FLORES AT BEDSIDE ATTEMPTING TO ADJUCT VENT FOR BETTER COMPLIANCE. PT TRANSPORTED TO CT WITH RN AND RT AT BEDSIDE WITHOUT DIFFICUTLY.
[2021-12-06 10:22] LABS: Base Excess Venous 1.9 mmol/L; Bicarbonate Venous 25.4 mmol/L (24.0-30.0); PCO2 Venous 48.9 mmHg (38-42); PO2 Venous 43.6 mmHg (38-42); pH Blood Venous 7.36 (7.34-7.37)
--- NOTE | 2021-12-06 10:45 | NUR ---
TRACH SUTURES REMOVED BY DR. FLORES. NEW TRACH TIES PLACED BY RT RYAN. WILL REPLACE INNER CANULA WITH 1200 CARES.
--- NOTE | 2021-12-06 12:00 | NUR ---
RR 40-50'S AT TIMES. FENTANYL 25 MCG/HR ADDED FOR PAIN/SEDATION ADJUNCT. PT MED WITH NORCO AND XANAX VIA DOBHOFF-PER DR. FLORES ORDER. PT FATHER IN FOR VISIT. UPDATED BY HIS PT FATHER DOES NOT SPEAK UZBEK.
--- NOTE | 2021-12-06 14:00 | NUR ---
FIO2 DECREASED TO 50% PER DR. FLORES VERBAL ORDER. RYAN, RT NOTIFIED.
--- NOTE | 2021-12-06 16:00 | NUR ---
PT REMAINS SEDATED ON PROPOFOL @ 80 MCG/KG/MIN, PRECEDEX @ 1.1 MCG/KG/MIN, AND FENTANYL @ 25 MCG/HR. RR 40-50'S. MED WITH FENTANYL 75 MCG IVP AND ATIVAN 2 MG IV X 1-SEE EMAR. PT GIVEN BED BATH AND LINEN CHANGE COMPLETED. RR 30'S AND PEAK PRESSURES IN THE 30'S. OVERALL PT TOLERATED WELL. MAINTAINS SATS>90% ON FIO2 50%. SPUTUM SPECIMEN SENT. HR 80'S AND SBP 90-110'S. DOBHOFF TF TOLERATED WELL AT GOAL. ROONEY OUTPUT ADEQUATE.
--- NOTE | 2021-12-06 21:24 | NUR ---
SHIFT ASSESSMENT ASSUMED CARE OF PT @ 1900, REPORT RECEIVED FROM RIZWAN RITCHIE. PT INTUBATED AND SEDATED. NOT FOLLOWING COMMAND NOR OPENING EYES TO STIMULI. PROPOFOL GTT @ 80MCG/KG/MIN, PRECEDEX @ 1.1MCG/KG/MIN, AND FENTANYL @ 25MCG/HR. HEPARIN GTT INFUSING AT PRESCRIBED RATE. PT APPEARS TO BE TOLERATING VENT BETTER WITH ADDITION OF FENTANYL GTT. VENT SETTINGS: VC: 18/400/50%/10 c O2 SATS >90%. RR IN THE LOW 30'S WHEN PT IS UNDISTURBED, INCREASES TO 40'S WITH PHYSICAL STIMULI. TF INFUSING VIA DOBHOFF @ GOAL. NO BM PAST TWO DAYS, MEDICATED c MILK OF MAG AND REGLAN. ROONEY CATH DRAINING YELLOW URINE.
[2021-12-07 03:35] LABS: Hemoglobin 9.1 g/dL (13.5-17.5); Mean Corpuscular HGB 30.7 pg (26.0-34.0); Mean Corpuscular HGB Conc 32.5 g/dL (31.5-36.5); Mean Corpuscular Volume 95 fL (80-100); Mean Platelet Volume 10.3 fL (9.1-12.4); Platelet Count 328 K/mm3 (150-400); RDW Coefficient Variation 16.2 % (11.7-14.2); RDW Standard Deviation 56.3 fL (35.1-46.3); Red Blood Cell Count 2.96 M/mm3 (4.30-5.90); White Blood Cell Count 17.75 K/mm3 (4.00-11.30)
[2021-12-07 03:54] LABS: Albumin, Blood 1.7 g/dL (3.4-5.0); Albumin/Globulin Ratio 0.4 (0.8-1.8); Bilirubin, Total 0.4 mg/dL (0.1-1.0); Bun/Creatinine Ratio 54.7 (12.0-20.0); Calcium, Blood 8.2 mg/dL (8.5-10.1); Creatinine, Blood 0.48 mg/dL (0.60-1.20); Globulin, Blood 4.6 g/dL (2.2-4.0); Magnesium, Blood 1.3 mg/dL (1.6-2.4); Phosphorus, Blood 3.5 mg/dL (2.5-4.9); Potassium, Blood 4.3 mmol/L (3.5-5.5); Total Protein, Blood 6.3 g/dL (6.4-8.2)
[2021-12-07 04:00] LABS: BAND PERCENT MAN 3 % (0-8); BASOPHILS PERCENT MAN 0 % (0-2); EOSINOPHILS PERCENT MAN 0 % (0-6); LYMPHOCYTES ABSOLUTE MAN 0.71 K/mm3 (0.84-5.20); LYMPHOCYTES PERCENT MAN 4 % (21-46); MONOCYTES ABSOLUTE MAN 0.53 K/mm3 (0.16-1.47); MONOCYTES PERCENT MAN 3 % (4-13); MYELOCYTE ABSOLUTE MAN 0.53 K/mm3 (0.00-0.00); MYELOCYTE PERCENT MAN 3 % (0-0); NEUTROPHILS ABSOLUTE MAN 15.97 K/mm3 (1.96-9.15); SEG NEUTROPHILS PERCENT MAN 87 % (41-73); TOTAL CELLS COUNTED 100
--- NOTE | 2021-12-07 06:12 | NUR ---
SHIFT SUMMARY PT REMAINS INTUBATED AND SEDATED. ABLE TO TITRATE SEDATION DOWN A LITTLE BIT DURING THE NIGHT, PROPOFOL NOW @ 70MCG/KG/MIN AND PRECEDEX @ 0.8MCG/KG/MIN. NO CHANGES TO VENT SETTINGS. O2 SATS REMAIN >90%. PTS NIGHT WENT FAIRLY WELL IN COMPARISON TO PRIOR EVEN THOUGH PT DID HAVE ONE MOMENT WHEN HIS RR REACHED THE MID 40'S AFTER SUCTION FROM RT, PT MEDICATED c 50MCG'S PRN FENTANYL AND STIMULI DECREASED, RR SLOWLY DECREASED TO 30'S. TF CONTINUES @ GOAL, NO BM THIS SHIFT. NO OTHER ACUTE CHANGES.
--- NOTE | 2021-12-07 08:00 | NUR ---
PT REMAINS SEDATED AND MECHANICALLY VENTILATED. RR 40-50'S AND PEAK PRESSURES 50'S. PROPOFOL TITRATED UP TO 80 MCG/KG/MIN, PRECEDEX TITRATED UP TO 1 MCG/KG/MIN, AND FENTANYL CONTINUES @ 25 MCG/HR. PT MED WITH FENTANYL 50 MCG IVP X 1 AND ATIVAN 2 MG IVP X 1 FOR PAIN/SEDATION ADJUNCT. PT IS NONRESPONSIVE. PUPILS 2 MM AND SLUGGISH. NO SPONTANEOUS EYE OPENING OR MOVEMENT OF EXTREMITIES. ECG SHOWS SR WITH RATE 70'S. SBP 90-120'S. GENERALIZED EDEMA CONTINUES. LUNGS COARSE TO UPPER LOBES AND DIMINISHED IN THE BASES. TRACH SITE CLEAR. VENT: AC/VC+18, 400, 10, 50%. SATS>90%, BUT PT WORKING VERY HARD TO MAINTAIN SATS. ACCESSORY MUSCLE USE NOTED. DOBHOFF TO RIGHT NARE-PT TOLERATING TF @ GOAL WITHOUT DIFFICULTY. ROONEY TO BSD WITH ADEQUATE AMOUNT OF CLEAR, YELLOW URINE OUTPUT. SKIN IS PALE AND DIAPHORETIC. SCATTERED SCABS ARE UNCHANGED FROM 12/06/21 ASSESSMENT.
--- NOTE | 2021-12-07 09:36 | NUR ---
VECURONIUM 20 MG IVP X1 GIVEN RR 40'S AND PEAK PRESSURES IN THE 50'S. TRIGLYCERIDE LEVEL ADDED ONTO BLOOD IN LAB.
[2021-12-07 09:56] LABS: Triglycerides 149 mg/dL (30-160)
--- NOTE | 2021-12-07 10:15 | NUR ---
PT TRANSPORTED TO CT OF CHEST WITH RN AND RT AT BEDSIDE.TOLERATED WELL.
--- NOTE | 2021-12-07 10:30 | NUR ---
TRACH CARE COMPLETED. PT RR 34 AND PEAK PRESSURES IN THE 50'S. DR. HANNA AWARE. PT MED WITH ROCURONIUM 20 MG IPV X 1.
--- NOTE | 2021-12-07 10:37 | NUR ---
PEAK PRESSURES CONTINUE IN THE 50'S. DR. HANNA AT BEDSIDE. REOCURONIUM 40 MG IVP X [address] HANNA ADJUSTING VENT.
--- NOTE | 2021-12-07 11:00 | NUR ---
VENT CHANGED TO AC/PC-RATE 30, P 32, PEEP 8, FIO2 50% PEAK PRESSURE 43. SATS 96%.
--- NOTE | 2021-12-07 12:11 | NUR ---
ONCE ROCURONIUM WORE OFF, RR 40'S AND PEAK PRESSURES 55. DR. HANNA AWARE. KETAMINE BOLUS GIVEN FOLLOWED BY KETAMINE DRIP @ 0.2 MCG/KG/HR=13 MG/6.4 ML/HR. PROPOFOL DRIP TITATED DOWN TO 75 MCG/KG/MIN.
--- NOTE | 2021-12-07 12:30 | NUR ---
DR. HANNA AND RT MOLLY AT BEDSIDE. PC DECREASED TO 26. PEAK PRESSURES TRENDING IN THE 30'S. SATS>90%. PT REPOSITIONED TO HIGH ON THE RIGHT SIDE/HARD TURN TO THE RIGHT PER DR. HANNA ORDER. PT TOLERATED WELL.
--- NOTE | 2021-12-07 14:25 | NUR ---
DR. HANNA AT BEDSIDE. PEEP DECREASED TO 5, P 28-RR 30, SATS 96% VENT COMPLIANCE IMPROVED WITH PROPOFOL @ 75MCG/KG/MIN, PREDEDEX @ 1.4 MCG/KG/MIN, FENTANYL @ 25 MCG/HR, AND KETAMINE @ 13 MG/HR=6.4 ML/HR. PT SPOUSE HAS RECEIVED SEVERAL UPDATES THROUGH OUT THE DAY FROM BOTH RN AND DR. HANNA.
--- NOTE | 2021-12-07 16:30 | NUR ---
PT TOLERATING MECHANICAL VENTILATION WELL WITH PROPOFOL @ 75 MCG/KG/MIN, FENTANYL @ 25 MCG/HR, PRECEDEX @ 1.4 MCG/KG/MIN, AND KETAMINE @ 13 MG/HR=6.4. SATS 95% ON AC/PC 30, RR 30, PS 28, PEEP 5, FIO2 50% FEW TRACH SECRETIONS THIS EVENING.ECG SHOWS SR WITH RATE 70'S. SBP 100-110'S. EDEMA HAS IMPROVED PT HAS DIURESED WELL TODAY. ADDITIONAL KCL 60 MEQ KCL GIVEN PER TUBE.
--- NOTE | 2021-12-07 21:21 | NUR ---
SHIFT ASSESSMENT PT MECHANICALLY VENTILATED AND SEDATED. INITIALLY PT TOLERATING VENT WELL BUT BECAME AGITATED AFTER SUCTIONING, RR CLIMBED FROM 30 TO 40'S AND SBP INCREASED TO 150-160'S. MEDICATED PT WITH 2MG ATIVAN WITH LITTLE RELIEF, FOLLOWED BY 50MCG FENTANYL WHICH HELPED WITH RR. CURRENTLY PT APPEARS MORE COMFORTABLE. PROPOFOL GTT INFUSING @ 75MCG/KG/MIN (WILL ATTEMPT TO TITRATE DOWN T/O THE NIGHT), PRECEDEX @ 1.4MCG/KG/HR, FENTANYL @ 25MCG/HR, AND KETAMINE @ 13MG/HR. TF INFUSING @ GOAL. ROONEY CATH WITH INCREASING UO, DRAINING LIGHT YELLOW URINE. SEE CHART FOR DETAILED ASSESSMENT.
[2021-12-08 04:10] LABS: Albumin, Blood 1.9 g/dL (3.4-5.0); Albumin/Globulin Ratio 0.4 (0.8-1.8); Bilirubin, Total 0.5 mg/dL (0.1-1.0); Bun/Creatinine Ratio 58.5 (12.0-20.0); Calcium, Blood 8.4 mg/dL (8.5-10.1); Creatinine, Blood 0.5 mg/dL (0.60-1.20); Magnesium, Blood 1.6 mg/dL (1.6-2.4); Potassium, Blood 4.1 mmol/L (3.5-5.5); Total Protein, Blood 6.9 g/dL (6.4-8.2)
[2021-12-08 04:19] LABS: BASOPHILS ABSOLUTE AUTO 0.18 K/mm3 (0.00-0.23); BASOPHILS PERCENT AUTO 1 % (0-2); EOSINOPHILS ABSOLUTE AUTO 0.03 K/mm3 (0.00-0.68); EOSINOPHILS PERCENT AUTO 0 % (0-6); Hemoglobin 10.4 g/dL (13.5-17.5); IMMATURE GRAN ABSOLUTE AUTO 0.72 K/mm3 (0.00-0.10); IMMATURE GRAN PERCENT AUTO 5 % (0-1); LYMPHOCYTES ABSOLUTE AUTO 1.21 K/mm3 (0.84-5.20); LYMPHOCYTES PERCENT AUTO 8 % (21-46); MONOCYTES ABSOLUTE AUTO 0.84 K/mm3 (0.16-1.47); MONOCYTES PERCENT AUTO 5 % (4-13); Mean Corpuscular HGB 29.9 pg (26.0-34.0); Mean Corpuscular HGB Conc 31.5 g/dL (31.5-36.5); Mean Corpuscular Volume 95 fL (80-100); Mean Platelet Volume 10.4 fL (9.1-12.4); NEUTROPHILS ABSOLUTE AUTO 12.67 K/mm3 (1.96-9.15); NEUTROPHILS PERCENT AUTO 81 % (41-73); Platelet Count 348 K/mm3 (150-400); RDW Coefficient Variation 15.9 % (11.7-14.2); RDW Standard Deviation 55.6 fL (35.1-46.3); Red Blood Cell Count 3.48 M/mm3 (4.30-5.90); White Blood Cell Count 15.65 K/mm3 (4.00-11.30)
--- NOTE | 2021-12-08 05:55 | NUR ---
SHIFT SUMMARY PT REMAINS ON MECHANICAL VENTILATION, INITIALLY TOLERATING FAIRLY WELL BUT BECAME MORE TACHYPNEIC T/O THE NIGHT. DURING BEDBATH AROUND 0330 PTS RR INCREASED TO MID 40'S FROM LOW 30'S. PT MEDICATED WITH 4MG OF PRN ATIVAN WITH LITTLE RELIEF. PROPOFOL TITRATED BACK TO 75MCG'S, PRECEDEX REMAINED @ 1.4MCG'S, KETAMINE @ 0.2MG/KG/HR BUT PT REMAINED TACHYPNEIC WELL BECOMING MILDLY HYPERTENSIVE. PT THEN MEDICATED c 50MCG'S PRN FENTANYL WHICH SEEMS TO WORK WELL FOR SEDATION ADJUNCT. UNSURE IF PT NEEDS HIGHER DOSAGE OF CONTINUOUS PAIN RELIEF OR KETAMINE HE DID BETTER AFTER INITIATING KETAMINE YESTERDAY. URINE OUTPUT OF 3300 ML. NO BM. NO OTHER ACUTE CHANGES.
--- NOTE | 2021-12-08 09:28 | NUR ---
AM NOTE: ASSUMED CARE OF PT AT 0700. PT IS SEDATED AND INTUABTED VIA TRACHEOSTOMY. PROPOFOL IS RUNNING AT 75 MCG/KG/MIN, KETAMINE AT 0.2 MG/HR, PRECEDEX AT 1.4 MCG/KG/HR, AND HEPARIN 21 UNITS/HR. VENT SETTINGS AC/PC 18/500/5/45%. PT HAS COARSE L/S THROGHOUT AND DIMINISHED IN THE BASES, SHALLOW BREATHS OBSERVED; O2 LEVELS 90< AND RR 30'S. ATTEMPTED TO REPOSITION PT TO LEFT SIDE THIS MORNING, BUT SPO2 LEVELS DROPPED DOWN TO THE MID 80'S. PT REMAINED IN THAT POSITION FOR A FEW MINUTES TO SEE IF HE WOULD RECOVER BUT HE DID NOT. PT WAS PLACED SUPINE AND SPO2 RECOVERED SLOWLY TO THE LOW 90'S. PT IN SR WITH HR IN THE 70'S AND SBP IN THE 110'S; PT RECIEVED A DOSE OF LASIX THIS MORNING. HEART SOUNDS HARD TO HEAR OVER COARSE LUNG SOUNDS. PT HAS HYPO ACTIVE BS IN ALL FOUR QUADRANTS; DOBHOFF IN PLACE AND INFUSING AT 40 MLS/HR. PT HAS AN INDWELLING CATHETER IN PLACE, PATENT AND DRAINING TO GRAVITY. PT HAS WARM EXTREMITIES, BUT L.FOOT MORE COOL THAN THE R. FOOT. THE PT HAS STRONG PULSES IN ALL EXTREMITIES. WILL CONTINUE TO MONITOR.
--- NOTE | 2021-12-08 10:07 | NUR ---
[facility] UPDATE: This RN spoke with Vanessa at [facility] for an update. Most recent set of vitals and labs provided.
--- NOTE | 2021-12-08 18:13 | NUR ---
SHIFT SUMMARY: PT SEDATED AND INTUBATED VIA TRACH; VENT SETTINGS AC/PC WITH RATE 30, PEEP 5, FIO2 40, AND P 15. PT HAS KETAMINE INFUSING AT 0.3 MG/HR. THE RR HAVE BEEN IN THE 30-40'S AND O2 LEVELS MAINTAINING 94<. THE PT IN SR WITH HR 90-100'S AND SBP IN THE 120'S. PT HAD A PROTECTIVE RESPONSE WITH IS EYES THIS SHIFT ONCE PROPOFOL AND PRECEDEX WERE PLACED ON SB. PT'S EYES OPEN SINCE PROPOFOL TURNED OFF, BUT THE PT IS NOT TRACKING; PT NOT FOLLOWING COMMANDS AT THIS TIME. THE PT HAS BEEN DIAPHORETIC TOWARDS THE END OF THE SHIFT BUT REMAINS AFEBRILE. DIONNA HERNANDEZ PERFORMED CPT TWICE THIS SHIFT. FENTANYL IS INFUSING AT 50 MCG/HR. NEW TUBE FEEDING GOAL RATE OF 15 MLS/HR INITIATED THIS SHIFT. THE PT HAS AN INDWELLING CATHETER THAT IS PATENT AND DRAINING TO GRAVITY; GOOD URINE OUTPUT THIS SHIFT. NO BM THIS SHIFT, BUT MORE BOWEL PROTOCOL ORDERS HAVE BEEN PUT IN. WILL CONTINUE TO MONITOR UNTIL ONCOMING NURSE ARRIVES.
--- NOTE | 2021-12-08 21:09 | NUR ---
SHIFT ASSESSMENT ASSUMED CARE OF PT @ 1900. BEDSIDE REPORT RECEIVED FROM ADAM RN'S. PT SEDATED AND VENTILATED VIA TRACH. VENT SETTINGS DIGITAL FORENSIC EXAMINER:30/400/40/5 c O2 SATS >90% & RR IN THE 40'S. FENTANYL GTT INFUSING @ 50MCG/HR AND KETAMINE GTT @ 0.3MG/KG/HR. PT ALERT IN ROOM WITH FAMILY AT BEDSIDE. PT TRACKING FAMILY, SMILING AT SPOUSE, ATTEMPTING TO SPEAK. PTS AND DAUGHTER STATED "HE IS SQUEEZING OUR HANDS", THIS NURSE ASKED HIM TO SQUEEZE AND HE FAINTLY SQUEEZED BOTH HANDS. WITH INCREASED STIMULI/ DECREASED SEDATION PT BECOMING TACHYCARDIC IN THE 140'S AND TACHYPNEIC IN THE HIGH 40'S. DR HANNA CONTACTED, ADVISED TO START PRECEDEX DURING THE NIGHT, TITRATING PRECEDEX AT THIS TIME. TF INFUSING @ 15ML/HR, NO BM X 2 DAYS, DSS STARTED. ROONEY CATH DRAINING YELLOW URINE. WILL MONITOR CLOSELY.
[2021-12-09 03:38] LABS: BASOPHILS ABSOLUTE AUTO 0.11 K/mm3 (0.00-0.23); BASOPHILS PERCENT AUTO 1 % (0-2); EOSINOPHILS ABSOLUTE AUTO 0.01 K/mm3 (0.00-0.68); EOSINOPHILS PERCENT AUTO 0 % (0-6); Hematocrit 32.8 % (37.0-53.0); Hemoglobin 10.8 g/dL (13.5-17.5); IMMATURE GRAN ABSOLUTE AUTO 0.55 K/mm3 (0.00-0.10); IMMATURE GRAN PERCENT AUTO 3 % (0-1); LYMPHOCYTES ABSOLUTE AUTO 2.24 K/mm3 (0.84-5.20); LYMPHOCYTES PERCENT AUTO 12 % (21-46); MONOCYTES ABSOLUTE AUTO 0.98 K/mm3 (0.16-1.47); MONOCYTES PERCENT AUTO 5 % (4-13); Mean Corpuscular HGB 30.1 pg (26.0-34.0); Mean Corpuscular HGB Conc 32.9 g/dL (31.5-36.5); Mean Corpuscular Volume 91 fL (80-100); Mean Platelet Volume 9.9 fL (9.1-12.4); NEUTROPHILS ABSOLUTE AUTO 15.51 K/mm3 (1.96-9.15); NEUTROPHILS PERCENT AUTO 80 % (41-73); Platelet Count 315 K/mm3 (150-400); RDW Coefficient Variation 15.9 % (11.7-14.2); RDW Standard Deviation 53.9 fL (35.1-46.3); Red Blood Cell Count 3.59 M/mm3 (4.30-5.90)
[2021-12-09 04:02] LABS: Albumin, Blood 2.1 g/dL (3.4-5.0); Albumin/Globulin Ratio 0.4 (0.8-1.8); Bilirubin, Total 0.6 mg/dL (0.1-1.0); Calcium, Blood 8.8 mg/dL (8.5-10.1); Creatinine, Blood 0.58 mg/dL (0.60-1.20); Globulin, Blood 5.1 g/dL (2.2-4.0); Magnesium, Blood 1.3 mg/dL (1.6-2.4); Potassium, Blood 3.9 mmol/L (3.5-5.5); Total Protein, Blood 7.2 g/dL (6.4-8.2)
--- NOTE | 2021-12-09 06:20 | NUR ---
SHIFT SUMMARY PT REMAINS MECHANICALLY VENTILATED VIA TRACH. PTS O2 SATS SLOWLY DECREASING IN THE NIGHT, LS REMAIN COARSE c SCANT SECRETIONS, FI02 TITRATED TO 60% TO MAINTAIN SPO2 >90%, NO OTHER CHANGES TO PREVIOUS VENT SETTINGS. PT AWAKE FOR MOST OF THE NIGHT, OPENS EYES SPONTANEOUSLY, TRACKING THIS NURSE, INTERMITTENTLY FOLLOWING SIMPLE COMMANDS BY SQUEEZING BL HANDS. PRECEDEX GTT INFUSING @ 1.4MCG/KG/HR, FENTANYL GTT @ 50MCG/HR, AND KETAMINE @ 0.2MG/KG/HR. NO BM THIS SHIFT, BOWEL CARE MEDS GIVEN. ROONEY CATH DRAINING YELLOW URINE, URINE OUTPUT OF 1900ML. NO OTHER ACUTE CHANGES.
--- NOTE | 2021-12-09 09:00 | NUR ---
AM NOTE: PT IS AWAKE AND RESPONDING TO VERBAL STIMULI BY TRACKING WITH HIS EYES WHEN HIS NAME IS CALLED. THE PT IS NOT FOLLOWING COMMANDS AT THIS TIME. PT HAS PRECEDEX INFUSING AT 1.4 MCG/KG/HR AND KETAMINE AT 0.2 MG/HR. THE PT IS INTUBATED VIA TRACH WITH VENT SETTINGS AT RATE-30, PEEP-5, FIO2-50, AND PI-18; PT RR 30-40'S, O2 LEVELS 90<, AND TIDAL VOLUMES 400-500. THE PT CONTINUES TO HAVE COARSE LS AND DIMINISHED IN THE BASES BILATERALLY. PT HEART SOUNDS NOTED AND HR IN THE 90'S WITH SBP 120'S; PT IN SR. THE PT HAS AN NGT THAT IS PATENT AND INFUSING BHP AT 15 MLS/HR; HYPERACTIVE BOWEL SOUNDS IN ALL FOUR QUADRANTS. PT HAS AN INDWELING CATHETER THAT IS PATENT AND DRAINING YELLOW URINE. ALL EXTREMITIES ARE WARM TO TOUCH; CAP REFIL < 3 SECONDS. WILL CONTINUE TO MONITOR.
--- NOTE | 2021-12-09 18:21 | NUR ---
SHIFT SUMMARY: PT IS ALERT AND INTUBATED VIA TRACH WITH SETTINGS RATE-30, PEEP-5, FIO2- 50%, AND P-18; TIDAL VOLUMES HAVE BEEN 400-500, RR 30'S, AND O2 LEVELS MAINTAINING 92<. THE PT DESTATS DURING ACTIVITY AND TAKE A LITTLE LONGER TO RECOVER, BUT IS ABLE TO RECOVER. PRECEDEX HAS BEEN ON STANDBY SINCE 1400 AND THE PT IS MORE ALERT, TRACKING MOVEMENT/SOUND WITH HIS EYES, AND IS ABLE TO SQUEEZE MY HANDS BILATERALLY. THE PT WAS ABLE TO NOD HIS HEAD YES/NO WHEN ASKED ABOUT PAIN. THE PT HAS BEEN SR THIS SHIFT WITH HR IN THE 80-90'S AND SBP 100-110. THE PT HAS HYPERACTIVE BS IN ALL FOUR QUADRANTS AND VHP TUBE FEEDING HAS BEEN INCREASED RUNNING AT 35 MLS/HR WITH A GOAL OF 50MLS. THE STARTED TO HAVE LIQUID BOWEL MOVEMENTS AFTER GIVING THE SUPPOSITORY THIS MORNING; A RECTAL TUBE WAS PLACED THIS SHIFT AND IS PATENT AND DRAINING TO GRAVITY. THE PT HAS AN INDWELLING CATHER IN PLACE THAT IS PATENT AND DRAINING TO GRAVITY WITH CLEAR, YELLOW URINE. THE PT HAS AFEBRILE FOR THE ENTIRE SHIFT. DR LUCERO EXPRESSED THE GOAL FOR THE PT TO BE TRANSFERRED TO [facility] BY THE END OF THE WEEK. WILL CONTINUE TO MONITOR UNTIL ONCOMING NURSE ARRIVES.
--- NOTE | 2021-12-09 19:00 | NUR ---
ASSUMED CARE PT IN LAYING BED. NS AT TKO. OPENS EYES SPONTANEOUSLY TO SOUND. TF PIVOT 1.5 AT 35ML/HR. VENT SETTINGS AC/PC 30/P18/5/45% ROONEY PATENT AND DRAINING TO GRAVITY. RECTAL TUBE IN PLACE.
--- NOTE | 2021-12-09 20:47 | NUR ---
NAUSEA PT ASKED PT IF HE WAS NAUSEOUS IN KOREAN. HE NODDED HIS HEAD. MEDICATED PER EMAR. VIOCED CONCERN OVER PT BEING NAUSEOUS WHEN SHE IS GONE ON WEDNESDAY AND HIM NOT BEING ABLE TO COMMUNICATE HIS NEEDS. REASSURED THAT THIS RN WILL PASS ON TO NEXT SHIFT.
--- NOTE | 2021-12-10 04:50 | NUR ---
CALL TO MD CALL PLACED TO DR LUCERO REGARDING PT's INCREASING RR, PULSE, AND OXYGENATION NEEDS. ORDER RECEIVED TO RESTART PRECEDEX GTT.
--- NOTE | 2021-12-10 06:18 | NUR ---
SHIFT SUMMARY PT CONTINUES ON VENT W/ TRACH. VENT SETTINGS 30/P18/5/50%. RR 30-45 T/O NIGHT. TRACH CARE COMPLETED. PT DESATS WITH REPOSITIONING, TAKES TIME TO RECOVER. DOES NOT SEEM TO TOLERATE LYING TO LEFT. SINUS TACH UP TO 135. IMPROVED WITH PRECEDEX GTT AT 0.06MCG/KG/HR. NS TKO. TF PIVOT 1.5 AT GOAL OF 50ML/HR. ROONEY PATENT AND DRAINING TO GRAVITY. RECTAL TUBE IN PLACE. REMAINED AT BEDSIDE T/O NIGHT.
[2021-12-10 09:58] LABS: Magnesium, Blood 1.5 mg/dL (1.6-2.4)
[2021-12-10 09:59] LABS: Albumin, Blood 1.9 g/dL (3.4-5.0); Albumin/Globulin Ratio 0.4 (0.8-1.8); Bilirubin, Total 0.6 mg/dL (0.1-1.0); Bun/Creatinine Ratio 71.4 (12.0-20.0); Calcium, Blood 8.2 mg/dL (8.5-10.1); Creatinine, Blood 0.62 mg/dL (0.60-1.20); Globulin, Blood 4.7 g/dL (2.2-4.0); Potassium, Blood 4.3 mmol/L (3.5-5.5); Total Protein, Blood 6.6 g/dL (6.4-8.2)
--- NOTE | 2021-12-10 11:07 | NUR ---
AM SHIFT: ASSUMED CARE OF PT AT 0700. PT SEDATED AND INTUBATED VIA TRACH WITH PRECEDEX RUNNING AT 0.6 MCH/KG/HR, VENT SETTINGS VC/PC RATE-30, PEEP-5, P-18, AND FI02- 50%. PT HAS BEEN TACHYPNEIC WITH RR 35-45, AND INCREASES WITH ACTIVITY/STIMULI, O2 LEVELS MAINTAINING 96<. COARSE LUNG SOUNDS THROUHGOUT WITH DIMINISHED SOUNDS IN THE LOWER LOBES BILATERALLY; THERE WAS HIGH PITHCED SOUND NOTED IN THE LEFT LUNG THAT WAS HEARD AT THE START OF INHALE AND THE END OF EXHALE; DR RAMOS AT BEDSIDE WHEN ASSESSING AND WAS NOTIFIED/ ASSESSED PT. THE PT HAS BEEN SINUS TACHY WITH HR 100-110 WITH SBP 120'S. PT MEDICATED WITH XANAX THIS MORNING AT 1040 AND THE PT HR RESPONDED DECREASING TO THE 90'S WITH SBP IN THE 90'S, MAP 65<. THE PT HAS HYPERACTIVE BS SOUNDS IN ALL FOUR QUADRANTS; BOWEL PROTOCOL DISCUSSED WITH DR RAMOS AND BOWEL PROTOCOL WAS D/C R/T LIQUID STOOLS AND HYPERACTIVE BOWELS. THE PT HAS NO ABD DISTENTION OR PAIN RESPONSE WITH PALPATION. THE PT HAS AN INDWELLING CATHER PRESENT, PATENT AND DRAINING TO GRAVTY; URINE CLEAR, YELLOW. THE PT WARM EXTREMITIES WITH CAP REFILL < 3 SECONDS AND PPP X 4 EXTREM. PASSIVE ROM CONDUCTED THIS MORNING DURING REPOSITIONING. THE GOAL FOR THE PT CONTINUES TO BE GETTING THE PRECEDEX OFF AND TRANSITIONING TO PO MEDICATION FOR COMFORT/VENT COMPLIANCE. WILL CONTINUE TO MONITOR CLOSELY.
[2021-12-10 11:54] LABS: BASOPHILS ABSOLUTE AUTO 0.06 K/mm3 (0.00-0.23); BASOPHILS PERCENT AUTO 0 % (0-2); EOSINOPHILS ABSOLUTE AUTO 0.02 K/mm3 (0.00-0.68); EOSINOPHILS PERCENT AUTO 0 % (0-6); Hematocrit 29.5 % (37.0-53.0); Hemoglobin 9.9 g/dL (13.5-17.5); IMMATURE GRAN ABSOLUTE AUTO 0.28 K/mm3 (0.00-0.10); IMMATURE GRAN PERCENT AUTO 2 % (0-1); LYMPHOCYTES ABSOLUTE AUTO 1.12 K/mm3 (0.84-5.20); LYMPHOCYTES PERCENT AUTO 6 % (21-46); MONOCYTES ABSOLUTE AUTO 0.67 K/mm3 (0.16-1.47); MONOCYTES PERCENT AUTO 4 % (4-13); Mean Corpuscular HGB 31.1 pg (26.0-34.0); Mean Corpuscular HGB Conc 33.6 g/dL (31.5-36.5); Mean Corpuscular Volume 93 fL (80-100); NEUTROPHILS ABSOLUTE AUTO 15.74 K/mm3 (1.96-9.15); NEUTROPHILS PERCENT AUTO 88 % (41-73); Platelet Count 304 K/mm3 (150-400); RDW Coefficient Variation 16.1 % (11.7-14.2); RDW Standard Deviation 55.5 fL (35.1-46.3); Red Blood Cell Count 3.18 M/mm3 (4.30-5.90); White Blood Cell Count 17.89 K/mm3 (4.00-11.30)
--- NOTE | 2021-12-10 19:04 | NUR ---
SHIFT SUMMARY: PT REMAINS DROSY AND INTUBAED VIA TRACH; VENT SETTINGS RATE-30, PEEP-5, P-18, AND FI02-40. RR HAVE BEEN 35-45 MOST OF THE DAY, TOWARDS THE EVENING THE PT RR CAME BACK DOWN TO THE 30'S. O2 HAS BEEN TITRATED THROUGHOUT THE DAY TO MAINTAIN O2 LEVELS 90<; CURRENTLY O2 LEVELS HAVE BEEN 92<. COARSE LUNGS SOUNDS THROUGHOUT AND DIMINISHED IN THE BASES. THE PT HAS BEEN IN SINUS TACH WITH HR IN THE 100'S, AND SBP 100-110. THE PT HAS HYPERACTIVE BOWEL SOUNDS AND A RECTAL TUBE IN PLACE THAT IS PATENT AND DRAINING TO GRAVITY. THE PT HAS A ROONEY CATHETER IN PLACE AND DRAINING TO GRAVITY; CLEAR, YELLOW URINE. THE PT HAS WARM EXTREMITIES AND PPP X 4; CAP REFILL < 3 SECONDS. WILL CONTINUE TO MONITOR UNTIL ONCOMING NURSE ARRIVES.
--- NOTE | 2021-12-10 22:36 | NUR ---
ASSUMED CARE AT 1900 PATIENT IS ALERT AND ORIENTED TO SELF AND FOLLOWING COMMANDS. UPPER EXTREMITIES PROFOUND WEAKNESS, BLE PATIENT ABLE TO WIGGLE TOES. 02 SATS 95% ON VENT VIA TRACH, AC PC 30/P18/PEEP 5/FI02 40%. SCANT AMOUNT OF THIN WHITE SPUTUM VIA DEEP SUCTION. RR 30s-40s.. HR ST WITH PVCs 120-140. BP SATBLE. ROONEY PATENT AND DRAINING TO GRAVITY. RECTAL TUBE DRAINING LIQUID BROWN STOOL. PATIENT REPOSITIONED AND ORAL CARE DONE. SEE SHIFT ASSESSMENT FOR MORE INFORMATION.
[2021-12-11 04:41] LABS: BASOPHILS ABSOLUTE AUTO 0.01 K/mm3 (0.00-0.23); BASOPHILS PERCENT AUTO 0 % (0-2); EOSINOPHILS PERCENT AUTO 0 % (0-6); Hematocrit 26.7 % (37.0-53.0); Hemoglobin 8.7 g/dL (13.5-17.5); IMMATURE GRAN ABSOLUTE AUTO 0.12 K/mm3 (0.00-0.10); IMMATURE GRAN PERCENT AUTO 1 % (0-1); LYMPHOCYTES ABSOLUTE AUTO 0.79 K/mm3 (0.84-5.20); LYMPHOCYTES PERCENT AUTO 8 % (21-46); MONOCYTES ABSOLUTE AUTO 0.23 K/mm3 (0.16-1.47); MONOCYTES PERCENT AUTO 2 % (4-13); Mean Corpuscular HGB 30.1 pg (26.0-34.0); Mean Corpuscular HGB Conc 32.6 g/dL (31.5-36.5); Mean Corpuscular Volume 92 fL (80-100); NEUTROPHILS ABSOLUTE AUTO 9.37 K/mm3 (1.96-9.15); NEUTROPHILS PERCENT AUTO 89 % (41-73); Platelet Count 206 K/mm3 (150-400); RDW Coefficient Variation 15.5 % (11.7-14.2); RDW Standard Deviation 52.4 fL (35.1-46.3); Red Blood Cell Count 2.89 M/mm3 (4.30-5.90); White Blood Cell Count 10.52 K/mm3 (4.00-11.30)
[2021-12-11 05:21] LABS: Magnesium, Blood 2.2 mg/dL (1.6-2.4)
[2021-12-11 05:22] LABS: Albumin, Blood 2.1 g/dL (3.4-5.0); Albumin/Globulin Ratio 0.4 (0.8-1.8); Bilirubin, Total 0.7 mg/dL (0.1-1.0); Bun/Creatinine Ratio 81.6 (12.0-20.0); Calcium, Blood 8.5 mg/dL (8.5-10.1); Creatinine, Blood 0.58 mg/dL (0.60-1.20); Globulin, Blood 4.9 g/dL (2.2-4.0); Potassium, Blood 4.4 mmol/L (3.5-5.5)
--- NOTE | 2021-12-11 06:54 | NUR ---
SHIFT SUMMARY PATIENT IS ALERT AND ORIENTED TO SELF AND FOLLOWING SIMPLE COMMANDS. 02 SATS 95% ON VENT VIA TRACH. VENT SETTING UNCHANGED. HR ST 110-120. BP STABLE. ROONEY PATENT AND DRAINING TO GRAVITY. RECTAL TUBE DRAINING LIQUID BROWN STOOL TO GRAVITY. PATIENT REPOSITIONED Q2 HOURS. TUBE FEED INF AT GOAL RATE VIA DOBHOFF.
--- NOTE | 2021-12-11 09:44 | NUR ---
PT AWAKE AND ALERT. GENERALLY WEAK. PT TRACKING WITH EYES AND WILL WELFARE CENTRE MANAGER TO COMMAND. PT IS AFEBRILE. ECG SHOWS ST WITH RATE 120'S. SBP TRENDING 100-110'S. NO NOTED EDEMA. DP/PT PULSES STRONG. NO NOTED EDEMA. TRACH SITE CLEAR. LUNGS COARSE WITH EXPIRATORY WHEEZES TO UPPER LOBES. SATS >90% ON VENT:AC/PC P 18, PEEP 5, FIO2 40%. MINIMAL TRACH SECRETIONS. NEW DOBHOFF PLACED TO RIGHT NARE @ 65 CM AND PLACEMENT CONFIRMED BY CH1V. TF RESUMED AT GOAL RATE OF 50 ML/HR. RECTAL TUBE CONTINUES TO DRAIN MODERATE AMOUNT OF BROWN, LIQUID STOOL. SCHEDULED STOOL SOFTENERS HELD. ROONEY TO BSD WITH ADEQUATE AMOUNT OF DARK, YELLOW URINE TO BSD. SKIN WITH SEVERAL SCABS SCATTERED T/O, BUT NO SIGNS OF INFECTION-SCABS APPEAR TO BE HEALING. PT SPOUSE UPDATED TO CURRENT STAUS AND PLAN OF CARE.
--- NOTE | 2021-12-11 11:03 | NUR ---
Spiritual Care Visit. Pt. is mostly non responsive. Spouse is present and welcomed my visit. Pts. daughter is also present. Family verbalizes encouragement in what they see as improvement in the Pts. condition. Re-establish rapport with spouse and daughter. Prayed with family and blessed Pt. Family verbalized gratitude for the spiritual care visit.
--- NOTE | 2021-12-11 11:30 | NUR ---
PT AWAKE AND ALERT. COMMUNICATING NON-VERBALLY. PT NODS "YES" WHEN ASKED IF IN PAIN. SCHEDULED ROXANOL GIVEN VIA DOBHOFF. PT ASSISTED OOB TO RECLINER CHAIR USING CEILING LIFT. TOLERATED WELL. MAINTAINED SATS >90% AND RR 30'S.
--- NOTE | 2021-12-11 12:00 | NUR ---
PT REMAINS UP IN THE CHAIR. PT/OT WORKING WITH PT. RR 30'S HR 120'S-PT MAINTAINS SATS>90% ON FIO2 40%. STILL MINIMAL TRACH SECRETIONS.
--- NOTE | 2021-12-11 16:00 | NUR ---
PT REMAINS AWAKE, ALERT, AND ORIENTED. PT COMMUNICATING NONVERBALLY AND FOLLOWING COMMANDS. HE REMAINS VERY WEAK, BUT HE IS COOPERATIVE WITH CARE AND PARTICIPATED TO THE BEST OF HIS ABILITY WITH PT/OT. ECG SHOWS ST WITH RATE 120'S. SBP 100'S. NO EDEMA. LUNGS COARSE TO UPPER LOBES AND DIMINISHED IN THE BASES. RR 32. SATS>90% ON FIO2 40%. PT CONTINUES TO TOLERATE DOBHOFF TF WELL. RECTAL TUBE DRAINING BROWN, LIQUID STOOL. ROONEY TO BSD WITH MODERATE AMOUNT OF DARK, YELLOW URINE TO BSD.
--- NOTE | 2021-12-11 17:56 | NUR ---
PT RESTING QUIETLY WHEN NOT DISTURBED. AWAKENS EASILY TO VOICE AND FOLLOWS COMMANDS. ECG SHOWS ST WITH RATE 110'S. SBP 110'S. MAINTAINS SATS>90% ON FIO2 40%. RR 24. MINIMAL TRACH SECRETIONS TODAY. PT TOLERATING TF WELL AT GOAL OF 50 CC/HR. URINE OUTPUT ADQUEATE THIS SHIFT.
[2021-12-12 06:17] LABS: BASOPHILS ABSOLUTE AUTO 0.03 K/mm3 (0.00-0.23); BASOPHILS PERCENT AUTO 0 % (0-2); EOSINOPHILS PERCENT AUTO 0 % (0-6); Hematocrit 28.8 % (37.0-53.0); Hemoglobin 9.1 g/dL (13.5-17.5); IMMATURE GRAN ABSOLUTE AUTO 0.22 K/mm3 (0.00-0.10); IMMATURE GRAN PERCENT AUTO 1 % (0-1); LYMPHOCYTES ABSOLUTE AUTO 1.26 K/mm3 (0.84-5.20); LYMPHOCYTES PERCENT AUTO 6 % (21-46); MONOCYTES ABSOLUTE AUTO 0.55 K/mm3 (0.16-1.47); MONOCYTES PERCENT AUTO 3 % (4-13); Mean Corpuscular HGB Conc 31.6 g/dL (31.5-36.5); Mean Corpuscular Volume 95 fL (80-100); Mean Platelet Volume 10.6 fL (9.1-12.4); NEUTROPHILS PERCENT AUTO 90 % (41-73); Platelet Count 276 K/mm3 (150-400); RDW Coefficient Variation 15.5 % (11.7-14.2); RDW Standard Deviation 54.1 fL (35.1-46.3); Red Blood Cell Count 3.03 M/mm3 (4.30-5.90); White Blood Cell Count 20.36 K/mm3 (4.00-11.30)
[2021-12-12 06:23] LABS: Albumin, Blood 2.1 g/dL (3.4-5.0); Albumin/Globulin Ratio 0.4 (0.8-1.8); Bilirubin, Total 0.4 mg/dL (0.1-1.0); Bun/Creatinine Ratio 107.7 (12.0-20.0); Creatinine, Blood 0.49 mg/dL (0.60-1.20); Globulin, Blood 4.7 g/dL (2.2-4.0); Magnesium, Blood 1.9 mg/dL (1.6-2.4); Potassium, Blood 4.7 mmol/L (3.5-5.5); Total Protein, Blood 6.8 g/dL (6.4-8.2)
--- NOTE | 2021-12-12 06:35 | NUR ---
SHIFT SUMMARY NO ACUTE CHANGES. VENT SETTINGS UNCHANGED. TRACH CARE DONE AND INNER CANNULA CHANGED BY RT THIS SHIFT. TRACH SITE IS CLEAR. MINIMAL SECRETIONS SX'd. VSS. MONITOR SHOWS SR-ST, RATE BETWEEN 90-110s DURING SHIFT. BP STABLE. PT SLEPT INTERMITTENTLY. CONTINUES TO FOLLOW SIMPLE COMMANDS AND NOD HEAD YES/NO. DOBHOFF WITH PIVOT 1.5 AT GOAL RATE OF 50CC/HR WITH 30CC H20 FLUSHES Q4H. RECTAL TUBE IN PLACE WITH SMALL AMOUNT OF LOOSE BROWN STOOL. ROONEY PATENT AND DRAINING TO GRAVITY. REMAINS AT BEDSIDE. WILL REPORT TO ONCOMING RN WHEN AVAILABLE.
--- NOTE | 2021-12-12 07:15 | NUR ---
ASSUMED CARE OF PT @0700. PT RELAXED APPEARS SLEEPING DURING BEDSIDE REPORT. VENT AC/PC 30/18/5/35%, O2 SAT >94%. TRACH COLLAR SECURE. HR 110, SBP STABLE. ROONEY CATH IN PLACE AND DRAINING TO GRAVITY. RECTAL TUBE IN PLACE AND DRAINING TO GRAVITY. SCD'S IN PLACE. PIVOT TF GOAL RATE 50MLS/HR. PICC ALTHEA SALINE LOCK. SLEEPING AT BEDSIDE.
--- NOTE | 2021-12-12 18:11 | NUR ---
SUMMARY: NEURO/PSYCH/MOBILITY: PT IS ALERT WHEN AWAKE, TRACKING WITH EYES, WILL NOD OR SHAKE HEAD. WEAKLY SQUEEZES HANDS AND MOVES TOES. PT TRIES TO MOVE MOUTH TO COMMUNICATE. PT GRIMACES DURING ORAL CARE AND REPOSITIONING BUT OTHERWISE RELAXES COMFORTABLY. TOTAL CARE FOR ALL ADL'S. REPOSITIONED Q2H THROUGHOUT SHIFT. PT UP IN RECLINER FROM [id number]. TOLERATED WELL. RESP: 8.[address] VENT SPONT. PEEP 5/FIO2 35%. SPO2 >94%, RR IN THE 20'S. LUNG SOUNDS COURSE THROUGHOUT W/DIMINISHED BASES. CARDIAC: ST 110-120'S, SBP 130'S, MAP >65. PULSES STRONG. EXTREMETIES ELEVATED W/NO EDEMA NOTED. GI: HYPERACTIVE BOWEL SOUNDS IN ALL 4 QUADRANTS. NO NAUSEA NOTED TODAY DURING TRANSITION TO RECLINER OR RETURNING TO BED. DOBHOFF IN PLACE AT GOAL RATE PIVOT @40MLS/HR. RECTAL TUBE IN PLACE AND DRAINING TO GRAVITY. : ROONEY CATH IN PLACE AND DRAINING CLEAR YELLOW URINE TO GRAVITY. SKIN: HEALING WOUNDS ON CHEEKS. SMALL HEALING SCABS ON FEET. DIAPHORETIC OFF AND ON. WARM TO THE TOUCH. ASSESSMENT REMAINS UNCHANGED THROUGHOUT SHIFT. PICC LINE ALTHEA PATENT W/SALINE LOCK.
--- NOTE | 2021-12-12 20:23 | NUR ---
ASSUMED CARE AT 1900 PATIENT RESPONDS TO VERBAL STIMULI, FOLLOW SOME SIMPLE COMMANDS, OPEN EYES, MOVES FINGERS AND TOES. 02 SATS 96% ON VENT VIA TRACH SPONT, PEEP 5, FI02 35%, RR 20. NO SPUTUM VIA DEEP SUCTION. LS COARSE IN UPPER LOBES. HR SR-ST 90-110. BP STABLE. DOBHOFF WITH TF PIVOT AT GOAL RATE 40 MLS/HR WITH 30 MLS FLUSHES Q4 HOURS. ROONEY CATH PATENT AND DRAINING CLEAR YELLOW TO GRAVITY. RECTAL TUBE TUBE DRAINING LIQUID BROWN STOOL TO GRAVITY. ORAL CARE DONE AND PATIENT REPOSITIONED. AT BEDSIDE. SEE SHIFT ASSESSMENT FOR MORE INFORMATION.
--- NOTE | 2021-12-13 05:47 | NUR ---
SHIFT SUMMARY PATIENT REPSONDS TO VERBAL STIMULI, FOLLOWS SIMPLE COMMANDS. 02 SATS 97% ON VENT VIA TRACH 01/14 FI02 35%, SCANT TO NO SECRETIONS WHEN DEEP SUCTIONING. HR SR-ST 90-115, BP STABLE. TUBE FEED INF AT GOAL RATE THROUGH DOBHOFF. RECTAL TUBE WITH 100 MLS LIQUID BROWN STOOL. ROONEY PATENT AND DRAINING CLEAR YELLOW URINE TO GRAVITY. PATIENT REPOSITIONED Q2 HOURS. CALL LIGHT IN REACH.
--- NOTE | 2021-12-13 07:00 | NUR ---
ASSUMED CARE OF PT @0700. PT AWAKE DURING BEDSIDE REPORT. AT BEDSIDE. PT TOLERATING TRACH COLLAR, SPO2 95% ON SPONT P 10/PEEP 5/FIO2 35%. RR 22. HR 120'S, SBP 130-140'S. SCD'S IN PLACE, ROONEY CATH PATENT AND DRAINING CLEAR YELLOW URINE TO GRAVITY. RECTAL TUBE IN PLACE WITH BROWN LIQUID STOOLS DRAINING TO GRAVITY.
[2021-12-13 07:22] LABS: BASOPHILS ABSOLUTE AUTO 0.02 K/mm3 (0.00-0.23); BASOPHILS PERCENT AUTO 0 % (0-2); EOSINOPHILS PERCENT AUTO 0 % (0-6); Hematocrit 30.7 % (37.0-53.0); Hemoglobin 9.9 g/dL (13.5-17.5); IMMATURE GRAN ABSOLUTE AUTO 0.17 K/mm3 (0.00-0.10); IMMATURE GRAN PERCENT AUTO 1 % (0-1); LYMPHOCYTES ABSOLUTE AUTO 1.16 K/mm3 (0.84-5.20); LYMPHOCYTES PERCENT AUTO 6 % (21-46); MONOCYTES ABSOLUTE AUTO 0.54 K/mm3 (0.16-1.47); MONOCYTES PERCENT AUTO 3 % (4-13); Mean Corpuscular HGB 30.7 pg (26.0-34.0); Mean Corpuscular HGB Conc 32.2 g/dL (31.5-36.5); Mean Corpuscular Volume 95 fL (80-100); Mean Platelet Volume 9.8 fL (9.1-12.4); NEUTROPHILS PERCENT AUTO 91 % (41-73); Platelet Count 268 K/mm3 (150-400); RDW Coefficient Variation 15.2 % (11.7-14.2); RDW Standard Deviation 53.3 fL (35.1-46.3); Red Blood Cell Count 3.22 M/mm3 (4.30-5.90); White Blood Cell Count 20.69 K/mm3 (4.00-11.30)
[2021-12-13 07:40] LABS: Magnesium, Blood 1.8 mg/dL (1.6-2.4)
[2021-12-13 07:41] LABS: Albumin, Blood 2.4 g/dL (3.4-5.0); Albumin/Globulin Ratio 0.5 (0.8-1.8); Bilirubin, Total 0.4 mg/dL (0.1-1.0); Bun/Creatinine Ratio 94.3 (12.0-20.0); Calcium, Blood 9.8 mg/dL (8.5-10.1); Creatinine, Blood 0.51 mg/dL (0.60-1.20); Globulin, Blood 4.6 g/dL (2.2-4.0); Potassium, Blood 4.6 mmol/L (3.5-5.5)
--- NOTE | 2021-12-13 18:24 | NUR ---
SUMMARY: NEURO/PSYCH/MOBILITY: PT IS ALERT WHEN AWAKE, PT MORE SEDATE DURING AM ASSESSMENTS. TRACKING W/EYES, WILL NOD OR SHAKE HEAD. WEAKLY SQUEEZES HANDS. PT TRIED TO LIFT HIS HEAD DURING LAST REPOSITIONING AND WAS MOVING HIS MOUTH. TOTAL CARE FOR ALL ADL'S. REPOSITOINED Q2H THROUGHOUTH SHIFT. PT UP IN RECLINER FROM [phone]. PT HAD AN INCREASE IN HR AND RR/EFFORT TODAY WHEN IN RECLINER. RESP: 8.[address] VENT SPONT. P 12/ PEEP 5/FIO2 30%. SPO2 >94%, RR IN THE 20'S MOST OF THE DAY, DID INCREASE SLIGHTLY W/AN INCREASE IN EFFORT DURING TIME IN RECLINER. NO SPUTUM DURING SUCTION WITH RT. LUNGS COARSE W/DIMINISHED BASES. CARDIAC: ST 110-120'S SBP 130-140'S, MAP >65. HR ELEVATED INTO HIGH 140'S DURING TIME IN RECLINER. DR FLORES ATTRIBUTED ELEVATED HR AND RR TO EXHAUSTION FROM BEING IN RECLINER. PT MOVED BACK TO BED AND HR/RR DECREASED. PULSES STRONG. EXTEMETIES ELEVATED W/NO EDEMA NOTED. GI: HYPERACTIVE BOWEL SOUNDS IN ALL 4 QUADRANTS. DOBHOFF AT GOAL RATE PIVOT @40MLS/HR. RECTAL TUBE IN PLACE AND DRAINING LIQUID BROWN STOOLS TO GRAVITY. : ROONEY CATH IN PLACE AND DRAINING CLEAR YELLOW URINE TO GRAVITY. SKIN: SKIN ASSESSMENT REMAINS UNCHANGED THROUGHOUT SHIFT. PICC LINE ALTHEA PATENT W/SALINE LOCK.
[2021-12-14 03:45] LABS: BASOPHILS ABSOLUTE AUTO 0.04 K/mm3 (0.00-0.23); BASOPHILS PERCENT AUTO 0 % (0-2); EOSINOPHILS PERCENT AUTO 0 % (0-6); Hematocrit 33.5 % (37.0-53.0); Hemoglobin 10.7 g/dL (13.5-17.5); IMMATURE GRAN ABSOLUTE AUTO 0.29 K/mm3 (0.00-0.10); IMMATURE GRAN PERCENT AUTO 1 % (0-1); LYMPHOCYTES ABSOLUTE AUTO 2.38 K/mm3 (0.84-5.20); LYMPHOCYTES PERCENT AUTO 10 % (21-46); MONOCYTES ABSOLUTE AUTO 1.34 K/mm3 (0.16-1.47); MONOCYTES PERCENT AUTO 6 % (4-13); Mean Corpuscular HGB 30.2 pg (26.0-34.0); Mean Corpuscular HGB Conc 31.9 g/dL (31.5-36.5); Mean Corpuscular Volume 95 fL (80-100); Mean Platelet Volume 10.2 fL (9.1-12.4); NEUTROPHILS ABSOLUTE AUTO 19.34 K/mm3 (1.96-9.15); NEUTROPHILS PERCENT AUTO 83 % (41-73); Platelet Count 305 K/mm3 (150-400); RDW Standard Deviation 52.8 fL (35.1-46.3); Red Blood Cell Count 3.54 M/mm3 (4.30-5.90); White Blood Cell Count 23.39 K/mm3 (4.00-11.30)
[2021-12-14 04:02] LABS: Bun/Creatinine Ratio 102.2 (12.0-20.0); Calcium, Blood 10.1 mg/dL (8.5-10.1); Creatinine, Blood 0.55 mg/dL (0.60-1.20); Potassium, Blood 4.3 mmol/L (3.5-5.5)
--- NOTE | 2021-12-14 06:16 | NUR ---
NO ACUTE CHANGES OVERNIGHT. PT HR DID CLIMB TO 140-150'S GOT ONE TIME ORDER OF IV METOPROLOL AND NOW HR 110-130'S. PLAN IS VIBRA WEDNESDAY. WILL GIVE BEDSIDE REPORT TO ONCOMING RN
--- NOTE | 2021-12-14 08:00 | NUR ---
INITIAL ASSESSMENT PATIENT ON VENTILATOR, NO SEDATION. PATIENT EASILY WAKES TO VERBAL STIMULI. PATIENT ORIENTED TO FAMILY AND ABLE TO ANSWER SIMPLE YES AND NO QUESTIONS WITH NODDING AND SHAKING OF HEAD. PATIENT VERY WEAK; ONLY SLIGHTLY ABLE TO MOVE EXTREMITIES. PATIENT AFEBRILE. PATIENT DENIES PAIN. PATIENT HAS 8.0 PORTEX TRACH. PATIENT ON SPONTANEOUS PRESSURE SUPPORT OF 12/5 AND 30% FIO2. LUNGS CLEAR IN UPPER LOBES AND COARSE IN LOWER LOBES. PATIENT TACHYPNEIC. SCANT AMOUNT OF THICK, PALE YELLOW SPUTUM SUCTIONED FROM TRACH. PATIENT IN ST, HR 120S TO 130S. SBP LOW 100S TO 120S. ABD SOFT, NON-DISTENDED WITH NORMOACTIVE BOWEL SOUNDS NOTED. PATIENT ON PIVOT 1.5 TF AT GOAL RATE OF 40 MLS/ HOUR INTO DOBHOFF WITH 30 ML WATER FLUSH Q4H. RECTAL TUBE DRAINING BROWN, LIQUID STOOL. ROONEY DRAINING DARK YELLOW COLORED URINE. SCATTERED SCABS AND SKIN TEARS NOTED T/O. ANUS RED. PATIENT BEING REPOSITIONED Q2H. AT BEDSIDE. CALL LIGHT IN REACH. WILL CONTINUE TO MONITOR PATIENT FREQUENTLY THROUGHOUT SHIFT.
--- NOTE | 2021-12-14 08:00 | NUR ---
DR. GARY UPDATED ON PATIENT STATUS. INFORMED THAT WBCS, BUN AND CREATININE HAVE ALL INCREASED ON LABS THIS AM. INFORMED THAT HR 140S TO 150S LAST NIGHT AND PATIENT RECEIVED OT METOPROLOL. INFORMED THAT HR CURRENTLY IN THE 130S. STATED SHE WOULD LOOK AT MEDICATIONS AND ORDER SOMETHING FOR HR.
[2021-12-14 09:30] LABS: Source, Urine Foley catheter
[2021-12-14 09:34] LABS: Appearance, Urine Clear (Clear); Bilirubin, Urine Neg (Neg); Blood, Urine 2+ (Neg); Color, Urine Yellow (P-Yellow); Glucose Qualitative, Urine Neg (Neg); Ketones, Urine Neg (Neg); Leukocyte Esterase, Urine 2+ (Neg); Nitrite, Urine Neg (Neg); Protein, Urine 1+ (Neg); Specific Gravity, Urine 1.015 (1.003-1.022); Urobilinogen, Urine NORM (Normal)
[2021-12-14 09:42] LABS: Bacteria Few /hpf; Hyaline Casts 0-2 /lpf (0-2); Red Blood Cells, Urine 0-2 /hpf (0-2); Squamous Epithelial Cells Rare /hpf (Few); Yeast/Fungi Urine Many /hpf
--- NOTE | 2021-12-14 12:00 | NUR ---
PATIENT AFEBRILE. NO SIGNS OF PAIN NOTED. HR 120S TO 130S. SBP 130S TO 140S. BLOOD SUGAR 240; COVERAGE GIVEN. NO OTHER ACUTE CHANGES TO NOTE ON AT THIS TIME. WILL CONTINUE TO MONITOR.
--- NOTE | 2021-12-14 18:36 | NUR ---
PATIENT AFEBRILE. HR IN THE 120S. SBP IN THE LOW 100S. PATIENT REMAINS ON SAME VENT SETTINGS TO TRACH. NO OTHER ACUTE CHANGES TO NOTE ON AT THIS TIME. WILL CONTINUE TO MONITOR.
--- NOTE | 2021-12-14 18:39 | NUR ---
SHIFT SUMMARY PATIENT NAPPED ON AND OFF THROUGHOUT SHIFT. PATIENT REMAINED ON VENTILATOR ON SPONTANEOUS PRESSURE SUPPORT 12/5 AND 30% FI02. PATIENT REMAINED WITHOUT SEDATION. PATIENT REMAINED TRACKING TO VOICE AND ANSWERING SIMPLE QUESTIONS WITH NODDING/ SHAKING OF HEAD. PATIENT MOVING EXTREMITIES SLIGHTLY, BUT CONTINUES TO BE VERY WEAK. PATIENT ANXIOUS WHEN MULTIPLE VISITORS TONIGHT. PATIENT RECEIVED PRN DOSE OF IV ATIVAN AND IT HELPED. PATIENT ANXIOUS TO BEGIN COMMUNICATING BUT NURSE UNABLE TO READ HIS LIPS. NEW SPUTUM CULTURE SENT TO LAB. SPUTUM THICK AND PALE YELLOW IN COLOR. PATIENT REMAINED IN ST, HR LOW 100S TO 140S. SBP LOW 100S TO 140S. HR IMPROVED AFTER METOPROLOL PT BID ADDED TO EMAR AND STARTED TODAY. RECTAL TUBE HAD NO OUTPUT THIS SHIFT. TF REMAINS AT GOAL RATE. 948 MLS OF DARK YELLOW URINE OUT FROM ROONEY. NEW URINE CULTURE SENT TO LAB. NO CHANGES TO SKIN NOTED. PATIENT UP TO CHAIR TWO TIMES THIS SHIFT AND REPOSITIONED Q2H. NEW BLOOD CULTURES OBTAINED TODAY. PATIENT HAD 500 CC NS BOLUS THIS SHIFT. BLOOD SUGARS 240 AND 307. LONG ACTING INSULIN INCREASED THIS SHIFT. PATIENT HAD COMPLETE BED BATH THIS SHIFT. HERE ALL MORNING AND WILL BE BACK TONIGHT. PATIENT APPEARS WITHOUT PAIN OR DISTRESS AT THIS TIME. BED LOW, CALL LIGHT IN REACH. REPORT WILL BE GIVEN TO ASSUMING BRUSH TRIMMING MACHINE SETTER NURSE SHORTLY.
[2021-12-15 04:09] LABS: BASOPHILS ABSOLUTE AUTO 0.02 K/mm3 (0.00-0.23); BASOPHILS PERCENT AUTO 0 % (0-2); EOSINOPHILS ABSOLUTE AUTO 0.04 K/mm3 (0.00-0.68); EOSINOPHILS PERCENT AUTO 0 % (0-6); Hematocrit 30.5 % (37.0-53.0); Hemoglobin 9.7 g/dL (13.5-17.5); IMMATURE GRAN ABSOLUTE AUTO 0.41 K/mm3 (0.00-0.10); IMMATURE GRAN PERCENT AUTO 2 % (0-1); LYMPHOCYTES PERCENT AUTO 11 % (21-46); MONOCYTES ABSOLUTE AUTO 0.54 K/mm3 (0.16-1.47); MONOCYTES PERCENT AUTO 3 % (4-13); Mean Corpuscular HGB 30.3 pg (26.0-34.0); Mean Corpuscular HGB Conc 31.8 g/dL (31.5-36.5); Mean Corpuscular Volume 95 fL (80-100); Mean Platelet Volume 10.5 fL (9.1-12.4); NEUTROPHILS ABSOLUTE AUTO 14.21 K/mm3 (1.96-9.15); NEUTROPHILS PERCENT AUTO 84 % (41-73); Platelet Count 267 K/mm3 (150-400); RDW Coefficient Variation 15.6 % (11.7-14.2); White Blood Cell Count 17.02 K/mm3 (4.00-11.30)
[2021-12-15 04:28] LABS: Bun/Creatinine Ratio 113.1 (12.0-20.0); Calcium, Blood 9.4 mg/dL (8.5-10.1); Creatinine, Blood 0.45 mg/dL (0.60-1.20)
--- NOTE | 2021-12-15 05:29 | NUR ---
NO ACUTE CHANGES OVERNIGHT. HR REMAINS BETWEEN 110-130'S. GAVE ONE TIME [address] CC [address] BOLUS PER [address]. FLORES. PT BLOOD CULTURES CAME BACK POSITIVE FOR GRAM POSITIVE COCCI IN CHAINS. VANCO WAS ORDERED BY DR. FLORES. FLUSHED RECTAL TUBE GOT 200 MLS OF STOOL OUT. CHANGED BAG WILL MONITOR. MELA RECTAL SKIN IS INTACT WITH BLANCHABLE REDNESS. PLAN IS VIBRA ON WEDNESDAY. WILL GIVE BEDSIDE REPORT TO ONCOMING RN.
--- NOTE | 2021-12-15 08:30 | NUR ---
INITIAL ASSESSMENT PATIENT AWAKE. VENT TO TRACH. PATIENT TRACKING NURSE AND WHEN BEING SPOKEN TO. PATIENT TRIES TO TALK BACK TO NURSE AND . PATIENT ABLE TO ANSWER YES AND NO QUESTIONS WITH NODDING AND SHAKING OF HEAD. PATIENT APPEARS ANXIOUS AT TIMES. PATIENT WEAK BUT ABLE TO MOVE ALL EXTREMITIES SLIGHTLY. PATIENT AFEBRILE. VENT SETTINGS: SPONTANEOUS PRESSURE SUPPORT 12/5 AND 30% FIO2. TRACH IS 8.0 PORTEX TRACH. LUNGS COARSE THROUGHOUT. SMALL TO MODERATE AMOUNT OF THICK, PALE YELLOW SPUTUM BEING SUCTIONED FROM TRACH. PATIENT IN ST, HR 120S TO 130S. SBP IN THE LOW 100S. ABD SOFT, NONTENDER, WITH NORMOACTIVE BOWEL SOUNDS NOTED. RECTAL TUBE IN PLACE DRAINING LIQUID BROWN STOOL. PIVOT TF INFUSING AT GOAL RATE OF 40 ML/ HOUR WITH 30 ML WATER FLUSH Q4H. ROONEY DRAINING DARK YELLOW COLORED URINE. SCATTERED SCABS AND SKIN TEARS NOTED. ANUS RED. IV FLUSHED AND SALINE LOCKED. RAIZA STARTED THIS AM. BED LOW, CALL LIGHT IN REACH. AT BEDSIDE. WILL CONTINUE TO MONITOR FREQUENTLY THROUGHOUT SHIFT.
--- NOTE | 2021-12-15 10:39 | NUR ---
DR. HANNA UPDATED ON PATIENT STATUS. INFORMED THAT HR INCREASED DURING NIGHT BUT THAT PRN ATIVAN HELPED AND THAT STARTING BID METOPROLOL YESTERDAY ALSO HELPED WITH HIGH HR. INFORMED THAT PATIENT HAD POSITIVE BLOOD CULTURES AND IS GROWING BACTERIA IN SPUTUM WELL. INFORMED THAT VANCO AND ZOSYN STARTED TODAY. NO ORDERS RECEIVED AT THIS TIME. WILL CONTINUE TO MONITOR.
--- NOTE | 2021-12-15 13:00 | NUR ---
PATIENT AFEBRILE. HR IN THE 130S. SBP IN THE 1-TEENS. PS NOW 10/5 AND 30% FIO2. BLOOD SUGAR 288; COVERAGE GIVEN. NO OTHER ACUTE CHANGES TO NOTE ON AT THIS TIME. WILL CONTINUE TO MONITOR.
--- NOTE | 2021-12-15 16:00 | NUR ---
PATIENT AFEBRILE. HR IN THE 140S. SBP IN THE 120S. SPONTANEOUS PRESSURE SUPPORT DECREASED FROM 10/5 TO 8/5 AND REMAINS AT 30% FIO2. NO OTHER ACUTE CHANGES TO NOTE ON AT THIS TIME. WILL CONTINUE TO MONITOR.
--- NOTE | 2021-12-15 18:50 | NUR ---
SHIFT SUMMARY PATIENT NAPPED ON AND OFF THROUGHOUT DAY. PATIENT REMAINED TRACKING NURSE AND ANSWERING YES AND NO QUESTIONS WITH NODDING AND SHAKING OF HEAD. PATIENT APPEARS ANXIOUS AT TIMES WHEN TRYING TO COMMUNICATE. PATIENT REMAINS VERY WEAK AND DECONDITIONED BUT IS ABLE TO MOVE ALL EXTREMITIES SLIGHTLY. PATIENT REMAINED AFEBRILE. LUNGS REMAINED COARSE THROUGHOUT. PATIENT DECREASED FROM 12/5 AND 30% FIO2 TO 8/5 AND 30% FIO2 THIS SHIFT. TRACH REMAINS IN PLACE AND WNL. PATIENT CONTINUED TO HAVE THICK, PALE YELLOW SPUTUM FROM MOUTH AND TRACH. PATIENT REMAINED IN ST, HR LOW 100S TO 140S. SBP 90S TO 130S. TF REMAINED AT GOAL RATE. 100 MLS OF BROWN, LOOSE STOOL OUT FROM RECTAL TUBE. ROONEY DRAINED 925 MLS OF YELLOW COLORED URINE. NO CHANGES TO SKIN NOTED. PATIENT UP TO CHAIR WITH LIFT TWO TIMES. PATIENT HAD COMPLETE BED BATH THIS SHIFT. VANCO STARTED EARLY THIS AM. DOSE OF ZOSYN GIVEN BUT THEN CHANGED TO MERREM. PHYSICAL THERAPY WORKED WITH PATIENT THIS AM. PATIENT GIVEN LIBRIUM PT OT TO SEE IF WOULD HELP WITH TACHYCARDIA. BLOOD SUGARS 288 AND 312 THIS SHIFT. CALL LIGHT ON LAP. PATIENT APPEARS COMFORTABLE AT THIS TIME. REPORT WILL BE GIVEN TO ASSUMING SQL SERVER ARCHITECT NURSE KIMBERLEY.
[2021-12-16 02:38] LABS: Vancomycin, Trough 10.1 ug/mL (5.0-10.0)
[2021-12-16 04:28] LABS: BASOPHILS ABSOLUTE AUTO 0.04 K/mm3 (0.00-0.23); BASOPHILS PERCENT AUTO 0 % (0-2); EOSINOPHILS ABSOLUTE AUTO 0.01 K/mm3 (0.00-0.68); EOSINOPHILS PERCENT AUTO 0 % (0-6); Hematocrit 30.3 % (37.0-53.0); Hemoglobin 9.4 g/dL (13.5-17.5); IMMATURE GRAN ABSOLUTE AUTO 0.53 K/mm3 (0.00-0.10); IMMATURE GRAN PERCENT AUTO 2 % (0-1); LYMPHOCYTES ABSOLUTE AUTO 0.86 K/mm3 (0.84-5.20); LYMPHOCYTES PERCENT AUTO 4 % (21-46); MONOCYTES ABSOLUTE AUTO 0.44 K/mm3 (0.16-1.47); MONOCYTES PERCENT AUTO 2 % (4-13); Mean Corpuscular HGB 29.8 pg (26.0-34.0); Mean Corpuscular Volume 96 fL (80-100); Mean Platelet Volume 10.4 fL (9.1-12.4); NEUTROPHILS ABSOLUTE AUTO 21.34 K/mm3 (1.96-9.15); NEUTROPHILS PERCENT AUTO 92 % (41-73); Platelet Count 280 K/mm3 (150-400); RDW Coefficient Variation 15.6 % (11.7-14.2); RDW Standard Deviation 55.7 fL (35.1-46.3); Red Blood Cell Count 3.15 M/mm3 (4.30-5.90); White Blood Cell Count 23.22 K/mm3 (4.00-11.30)
[2021-12-16 04:49] LABS: Bun/Creatinine Ratio 100.9 (12.0-20.0); Calcium, Blood 8.9 mg/dL (8.5-10.1); Creatinine, Blood 0.47 mg/dL (0.60-1.20); Potassium, Blood 4.3 mmol/L (3.5-5.5)
--- NOTE | 2021-12-16 05:46 | NUR ---
PT STABLE OVERNIGHT. HR REMAINED TACY. PT HEART ON MONITOR LOOKS IRRITABLE AND LOOKS LIKE TRYING TO FLIP INTO AFIB. WILL MONITOR CLOSELY. NO OTHER ACUTE CHANGES OVERNIGHT. WILL GIVE BEDSIDE REPORT TO ONCOMING RN.
--- NOTE | 2021-12-16 08:00 | NUR ---
INITIAL ASSESSMENT PATIENT HAS VENT TO TRACH. UNABLE TO SPEAK BECAUSE OF TRACH. PATIENT TRIES TO COMMUNICATE WITH NURSE BY WORDING MOUTHS WITH LIPS. PATIENT ABLE TO NOD/ SHAKE HEAD TO ANSWER YES AND NO QUESTIONS. PATIENT WEAK AND DECONDITIONED BUT IS ABLE TO FOLLOW SOME SIMPLE COMMANDS. PATIENT AFEBRILE. LUNGS COARSE. PATIENT ON SPONTANEOUS PRESSURE SUPPORT 8/5 AND 30% FIO2. TRACH IS 8.0 PORTEX TRACH. SMALL TO MODERATE AMOUNT OF THICK, YELLOW SPUTUM NTOED FROM TRACH. PATIENT TACHYPNEIC. PATIENT IN ST, HR 120S TO 130S. SBP 140S TO 150S. RECTAL TUBE IN PLACE DRAINING LOOSE, BROWN STOOL. ROONEY IN PLACE DRAINING DARK YELLOW URINE. SCATTERED SCABS AND SKIN TEARS NOTED. ANUS REDDENED. FEET AND HANDS PEELING. NS INFUSING TKO. BED LOW, CALL LIGHT IN REACH. SLEEPING ON COT AT BEDSIDE. WILL CONTINUE TO MONITOR PATIENT FREQUENTLY THROUGHOUT SHIFT.
--- NOTE | 2021-12-16 10:12 | NUR ---
DR. HANNA UPDATED ON PATIENT STATUS. INFORMED THAT WBCS INCREASED ON LAB THIS AM. INFORMED THAT BLOOD SUGARS HAVE BEEN HIGH IN 200S TO 300S. INFORMED THAT BLOOD CULTURE GREW ENTEROCOCCUS FAECALIS. INFORMED THAT SPUTUM GREW E. COLI AND ESBL. INFORMED THAT OT LIBRIUM HELPED WITH HR YESTERDAY. INFORMED THAT WAREHOUSE ASSISTANT REPORTED PATIENT HAD SOME "WEIRD RHYTHM CHANGES AT TIMES". THIS NURSE LOOKED AND PRINTED. DR. RAMOS (FOLLOWING DR. HANNA) SHOWN HEART STRIPS. DOCTORS STATED THEY WOULD PLACE ORDERED. NO ORDERS RECEIVED AT THIS TIME.
--- NOTE | 2021-12-16 13:00 | NUR ---
PATIENT AFEBRILE. HR IN THE 1-TEENS. SBP IN THE 1-TEENS. BLOOD SUGAR 233; COVERAGE GIVEN. NO OTHER ACUTE CHANGES TO NOTE ON AT THIS TIME. AT BEDSIDE. WILL CONTINUE TO MONITOR.
--- NOTE | 2021-12-16 14:05 | NUR ---
PATIENT CHANGED OVER BY RT TO TRACH COLLAR. AIRVO AT 40 L AND 30% FIO2. PATIENT REMAINS SATTING 90% AND GREATER. DR. HANNA INFORMED THAT URINE IS GROWING SWAPNA TROPICALIS. NO ORDERS RECEIVED AT THIS TIME.
--- NOTE | 2021-12-16 16:35 | NUR ---
PATIENT AFEBRILE. HR IN THE 130S. SBP IN THE 140S. SPEAKING VALVE IN PLACE. VOICE SOFT AND WEAK. PATIENT MAKING SOUNDS BUT NOT ABLE TO UNDERSTAND PATIENT YET. AT BEDSIDE. NO OTHER ACUTE CHANGES TO NOTE ON AT THIS TIME. WILL CONTINUE TO MONITOR.
--- NOTE | 2021-12-16 19:01 | NUR ---
SHIFT SUMMARY PATIENT NAPPED A COUPLE OF TIMES DURING SHIFT BUT MOSTLY REMAINED AWAKE. PATIENT REMAINS ABLE TO FOLLOW COMMANDS AND ANSWER YES AND NO QUESTIONS WITH NODDING AND SHAKING OF HEAD. PATIENT REMAINED AFEBRILE. OT FENTANYL IV GIVEN FOR COMPLAINT OF BEING UNCOMFORTABLE. PATIENT PLACED ON TRACH COLLAR ON AIRVO AT 40L AND 30% FIO2 THIS SHIFT. PATIENT DID WELL AND WAS THEN PLACED ON SPEAKING VALVE FOR A COUPLE OF HOURS. PATIENT BACK ON TRACH COLLAR AT THIS TIME AND IS SUPPOSED TO GO BACK ON VENT ON PS TONIGHT TO SLEEP PER DR. HANNA. PATIENT CONTINUES TO COUGH UP MODERATE AMOUNT OF THICK SPUTUM AND IT IS NOW TURNING FROM PALE YELLOW TO YELLOW BROWN IN COLOR. PATIENT REMAINED IN ST, HR 1-TEENS TO 130S. SBP 1-TEENS TO 150S. HR SEEMED IMPROVED THIS SHIFT WITH CHANGE FROM SCHEDULED XANAX TO SCHEDULED LIBRIUM. TF REMAINS AT GOAL RATE. 50 MLS OF STOOL OUT FROM RECTAL TUBE. BLOOD SUGARS 233 AND 212. ROONEY DRAINED 650 MLS OF DARK YELLOW COLORED URINE. NO CHANGES TO SKIN THIS SHIFT. PATIENT REPOSITIONED Q2H. PATIENT UP TO CHAIR WITH LIFT X 2. NS INFUSING TKO. ANTIBIOTIC CHANGES WERE MADE THIS SHIFT BLOOD, SPUTUM, AND URINE ALL GREW DIFFERENT SPECIMENS. PT/ OT WORKED WITH PATIENT THIS SHIFT. PATIENT HAD COMPLETE BED BATH. HERE UNTIL 1800 AND WILL BE BACK TONIGHT. PATIENT APPEARS COMFORTABLE AT THIS TIME. CALL LIGHT IN REACH. REPORT GIVEN TO ASSUMING INDUSTRIAL RELATIONS COUNSELOR NURSE.
--- NOTE | 2021-12-17 06:29 | NUR ---
NO ACUTE CHANGES OVERNIGHT. PT ASKING FOR FOOD AND DID REACH UP AND DISCONNECT VENT FROM TRACH. SPOKE TO HIM ABOUT THE DANGERS OF DOING THIS AND HE DID STOP. PT HR REMAINS ST BETWEEN 110-130'S. WOUNDS CONTINUE TO HEAL. WILL CONTINUE TO MONITOR AND GIVE ONCOMING RN BEDSIDE SHIFT REPORT.
--- NOTE | 2021-12-17 07:00 | NUR ---
ASSUME CARE: I have assumed care of this patient.
--- NOTE | 2021-12-17 18:45 | NUR ---
SHIFT SUMMARY: NEURO: pt awakens easily. With PaciMuir valve in place, pt's assists with assessing orientation. Pt is oriented to self and family. When asked the year, if he knows where he is at and why, pt gets upset and declines to answer. Pt's does note that he is aware of the current location of several family members outside of the hospital. He does seem confused; attempting to place washcloth in mouth. CARDIAC: sinus tachy. Strong peripheral pulses RESPIRATORY: pt tolerated transition to trach collar well today. Paci valve placed with 3L NC around 1600 and pt tolerating well since. GI/: dickerson draining rosmery urine. Rectal tube in place, though draining minimal stool SKIN: PICC line discontinued and bilateral forearm PIVs started. PSYCH/SOCIAL: pt very anxious and looks for in room. She is able to console him. Other family members at bedside this evening.
--- NOTE | 2021-12-17 20:00 | NUR ---
ASSUMED CARE PT LAYING IN BED ON 3L NC. A/O TO SELF AND FAMILY. FOLLOWING SOME DIRECTIONS. ON NC 3L. LUNG SOUNDS COARSE W/ CRACKLES IN THE BASES. PRODUCTIVE COUGH WITH MOD THICK SPUTUM. ST 110's, SBP 100's. PT MOVING ALL EXRTEMITIES SPONTANEOUSLY. C/O PAIN IN RIGHT LEG PER WHO TRANSLATED. NO EDEMA NOTED. MEDICATED PER EMAR. PIVOT 1.5 40ML/HR VIA DOBBHOFF. NS TKO. ROONEY IN PLACE AND DRAINING TO GRAVITY. RECTAL TUBE IN PLACE. AT BEDSIDE.
[2021-12-18 03:19] LABS: BASOPHILS ABSOLUTE AUTO 0.03 K/mm3 (0.00-0.23); BASOPHILS PERCENT AUTO 0 % (0-2); EOSINOPHILS ABSOLUTE AUTO 0.01 K/mm3 (0.00-0.68); EOSINOPHILS PERCENT AUTO 0 % (0-6); Hematocrit 28.2 % (37.0-53.0); Hemoglobin 9.3 g/dL (13.5-17.5); IMMATURE GRAN ABSOLUTE AUTO 0.32 K/mm3 (0.00-0.10); IMMATURE GRAN PERCENT AUTO 2 % (0-1); LYMPHOCYTES ABSOLUTE AUTO 0.89 K/mm3 (0.84-5.20); LYMPHOCYTES PERCENT AUTO 6 % (21-46); MONOCYTES PERCENT AUTO 3 % (4-13); Mean Corpuscular HGB 30.8 pg (26.0-34.0); Mean Corpuscular Volume 93 fL (80-100); Mean Platelet Volume 9.9 fL (9.1-12.4); NEUTROPHILS ABSOLUTE AUTO 13.73 K/mm3 (1.96-9.15); NEUTROPHILS PERCENT AUTO 89 % (41-73); Platelet Count 268 K/mm3 (150-400); RDW Coefficient Variation 15.2 % (11.7-14.2); RDW Standard Deviation 52.3 fL (35.1-46.3); Red Blood Cell Count 3.02 M/mm3 (4.30-5.90); White Blood Cell Count 15.48 K/mm3 (4.00-11.30)
[2021-12-18 03:35] LABS: Albumin, Blood 2.2 g/dL (3.4-5.0); Anion Gap 4 mmol/L (6-16); Blood Urea Nitrogen 34 mg/dL (8-24); Bun/Creatinine Ratio 88.8 (12.0-20.0); CO2, Blood 31 mmol/L (21-32); Calcium, Blood 8.1 mg/dL (8.5-10.1); Chloride, Blood 108 mmol/L (98-108); Creatinine, Blood 0.38 mg/dL (0.60-1.20); Glomerular Filtration Rate 129 (60-); Glucose, Blood 116 mg/dL (70-99); Phosphorus, Blood 2.9 mg/dL (2.5-4.9); Potassium, Blood 4.1 mmol/L (3.5-5.5); Sodium, Blood 143 mmol/L (136-145)
--- NOTE | 2021-12-18 05:56 | NUR ---
SHIFT SUMMARY NO ACUTE EVENTS T/O NIGHT. PT ON AIRVO W/ TRACH COLLAR. INCREASED TO 40L 36% FIO2 THIS AM D/T DESATURATIONS FOLLOWING TURN. PT RECOVERED QUICKLY. LUNG SOUNDS COARSE WITH CRACKLES IN BASES. MODERATE THICK SECRETIONS SUCTIONED. DOBBHOFF IN PLACE. TF STOPPED AT 0000 FOR BALDOMERO THIS AM. LANTUS HELD LAST NIGHT D/T NPO STATUS AT 0000. CONTINUE TO CHECK CBG Q6. ATIVAN GIVEN X1. ROONEY IN PLACE AND DRAINING TO GRAVITY. RECTAL TUBE IN PLACE WITH MINIMAL OUTPUT.
--- NOTE | 2021-12-18 07:33 | NUR ---
ASSUME CARE: I assumed care of this patient at 0700.
--- NOTE | 2021-12-18 09:08 | NUR ---
BALDOMERO AT BEDSIDE: BALDOMERO performed at bedside by Dr Tripp. Time out performed with at bedside. Pt was given at total of 3mg versed and 50mcg fentanyl. Provider unable to advance scope, so pt started on a propofol drip. BALDOMERO successful and completed at 0908.
--- NOTE | 2021-12-18 18:20 | NUR ---
SHIFT SUMMARY: BALDOMERO completed today. NEURO: unchanged from yesterday. Pt awakens easily. He worked with PT and OT today. CARDIAC: ST. stable BP RESPIRATORY: Passy Kell valve in place for a few hours today. Pt currently on trach collar 30% FiO2 satting at 100% GI/: rectal tube pulled today, no BM. Hamlin in place and continues to drain clear, yellow urine. SKIN: no new breakdown noted PSYCH/SOCIAL: at bedside and supportive throughout the day.
--- NOTE | 2021-12-18 20:00 | NUR ---
ASSUMED CARE PT AWAKE AND ALERT TO SELF/FAMILY. FOLLOWING SIMPLE COMMANDS AND ABLE TO TRACK NURSE. MOVING ALL EXTREM SPONTANEOUSLY. L SIDE WEAKER THEN THE RIGHT. ROM COMPLETED. LUNG SOUNDS COARSE W/ CRACKLES IN BASES. NO SECRETIONS AT THIS TIME. ROONEY CATH CHANGED D/T BEING INDWELLING OVER 30 DAYS. UA SENT. CURRENTLY ON AIRVO W/ TRACH COLLAR 50L 30%FIO2. VSS. AFEBRILE. AT BEDSIDE.
[2021-12-18 21:07] LABS: Source, Urine Foley catheter
[2021-12-18 21:23] LABS: Bilirubin, Urine Neg (Neg); Blood, Urine 2+ (Neg); Glucose Qualitative, Urine Neg (Neg); Ketones, Urine Neg (Neg); Leukocyte Esterase, Urine 3+ (Neg); Nitrite, Urine Neg (Neg); Protein, Urine 2+ (Neg); Specific Gravity, Urine 1.015 (1.003-1.022); Urobilinogen, Urine NORM (Normal); pH, Urine 6.5 (5.0-8.0)
[2021-12-18 21:28] LABS: Appearance, Urine Hazy (Clear); Color, Urine Yellow (P-Yellow)
[2021-12-18 21:29] LABS: Bacteria Few /hpf; Red Blood Cells, Urine 0-2 /hpf (0-2); Squamous Epithelial Cells Rare /hpf (Few); White Blood Cells, Urine TNTC /hpf (0-5); Yeast/Fungi Urine Few /hpf
--- NOTE | 2021-12-19 | NUR ---
CALL TO MD CBG OF 63. CALL TO HOSPITALIST JORDAN AT [phone]. ORDER RECEIVED FOR AMP D50, GIVEN. WILL RECHECK CBG AT 0030.
[2021-12-19 04:28] LABS: BASOPHILS ABSOLUTE AUTO 0.03 K/mm3 (0.00-0.23); BASOPHILS PERCENT AUTO 0 % (0-2); EOSINOPHILS PERCENT AUTO 1 % (0-6); Hematocrit 28.4 % (37.0-53.0); Hemoglobin 9.1 g/dL (13.5-17.5); IMMATURE GRAN ABSOLUTE AUTO 0.29 K/mm3 (0.00-0.10); IMMATURE GRAN PERCENT AUTO 2 % (0-1); LYMPHOCYTES ABSOLUTE AUTO 1.79 K/mm3 (0.84-5.20); LYMPHOCYTES PERCENT AUTO 14 % (21-46); MONOCYTES ABSOLUTE AUTO 0.82 K/mm3 (0.16-1.47); MONOCYTES PERCENT AUTO 6 % (4-13); Mean Corpuscular HGB 29.8 pg (26.0-34.0); Mean Corpuscular Volume 93 fL (80-100); Mean Platelet Volume 10.2 fL (9.1-12.4); NEUTROPHILS ABSOLUTE AUTO 9.84 K/mm3 (1.96-9.15); NEUTROPHILS PERCENT AUTO 76 % (41-73); Platelet Count 259 K/mm3 (150-400); RDW Coefficient Variation 15.3 % (11.7-14.2); RDW Standard Deviation 51.8 fL (35.1-46.3); Red Blood Cell Count 3.05 M/mm3 (4.30-5.90); White Blood Cell Count 12.87 K/mm3 (4.00-11.30)
[2021-12-19 04:47] LABS: Albumin, Blood 2.2 g/dL (3.4-5.0); Anion Gap 7 mmol/L (6-16); Blood Urea Nitrogen 30 mg/dL (8-24); Bun/Creatinine Ratio 79.2 (12.0-20.0); CO2, Blood 30 mmol/L (21-32); Calcium, Blood 8.5 mg/dL (8.5-10.1); Chloride, Blood 104 mmol/L (98-108); Creatinine, Blood 0.38 mg/dL (0.60-1.20); Glomerular Filtration Rate 129 (60-); Glucose, Blood 116 mg/dL (70-99); Phosphorus, Blood 3.3 mg/dL (2.5-4.9); Potassium, Blood 3.5 mmol/L (3.5-5.5); Sodium, Blood 141 mmol/L (136-145)
--- NOTE | 2021-12-19 05:20 | NUR ---
PULLED DOBBHOFF THIS RN FOUND DOBBHOFF OUT TO 40cm FROM PREVIOUS 68cm WITH TF INFUSING. DOBHOFF REMOVED. NEW DOBBHOFF PLACED AND CHEST XRAY DONE. SUZETTE READ AND ORDERED IT TO BE PULLED 4cm OUT. THIS WAS DONE AND MEDS WERE GIVEN. TF RESTARTED AT 40ML/HR.
--- NOTE | 2021-12-19 06:43 | NUR ---
SHIFT SUMMARY PT REMAINS ON AIRVO 60L 30% W/ TRACH COLLAR. SATS GREATER THEN 91%. DESATURATES WITH ANXIETY AND MOVEMENT. RECOVERS QUICKLY. LUNG SOUNDS W/ COARSE CRACKLES T/O. MOD AMOUNT OF THICK YELLOW/WHITE SECRETIONS. HR ST, 110'S TO 140'S. TF PIVOT 1.5 AT 40ML/HR. NS TKO. ROONEY PATENT AND DRAINING TO GRAVITY. SOFT WRIST RESTRAINT APPLIED AT 0600 D/T PULLING AT LINES.
--- NOTE | 2021-12-19 08:35 | NUR ---
ASSUMED CARE PT. ALERT THIS AM. ATTEMPTING TO SPEAK. PT. CURRENTLY ON AIRVO VIA TRACH COLLAR, 60L, 30%FIO2. LS CRACKLES/ COARSE AND THICK YELLOW SPUTUM SUCTIONED. PT. REMAINS AT BEDSIDE. PT. CURRENTLY IN RIGHT WRIST RESTRAINT DUE TO PULLING AT DOBHOFF AND CORDS AND LINES. PT. LEFT ARM WEAKER THAN RIGHT ARM. FAVORS RIGHT SIDE. ROONEY IN PLACE DRAINING TO GRAVITY. DOBHOFF SECURED WITH TF INFUSING AT GOAL OF 40ML/HR. PT. REMAINS TACHYCARDIC WITH HR 120S. ALL NEEDS MET AT THIS TIME.
--- NOTE | 2021-12-19 10:30 | NUR ---
PT PLACED ON SPEAKING VALVE VIA RT. CURRENTLY ON 2LNC. TOLERATING WELL.
--- NOTE | 2021-12-19 12:40 | NUR ---
PT UP TO BEDSIDE CHAIR WITH LIFT. ENCOURAGED EXERCISES. RIGHT WRIST RESTRAINT REMAINS IN PLACE, PT DIFFICULT TO REORIENT, CONTINUES TO ATTEMPT TO PULL AT DOBHOFF
--- NOTE | 2021-12-19 16:05 | NUR ---
PT PICKING AT GOWN AND CORDS IN ROOM. CONFUSED AT THIS TIME, ATTEMPTED TO REORIENT. PT. HR INCREASED TO 130S, BP INCREASED AND RR INCREASED. ATIVAN PRN GIVEN. PT. REMAINS UP IN BEDSIDE CHAIR ON 2L NC.
--- NOTE | 2021-12-19 18:16 | NUR ---
SHIFT SUMMARY PT REMAINS UP IN CHAIR T/O DAY. SPEECH VALVE IN PLACE ON 2LNC. TOLERATED VERY WELL. CONFUSION NOTED WITH CONVERSATION. VERY WEAK. ENCOURAGED EXERCISES T/O DAY, LEFT SIDE MORE SO THAN RIGHT. MED ONCE FOR ATIVAN FOR AGGITATION, VSS T/O. NADN. REPORT TO ONCOMING RN.
--- NOTE | 2021-12-19 19:45 | NUR ---
SHIFT ASSESSMENT ASSUMED CARE OF PT @ 1900, BEDSIDE REPORT RECEIVED. PT SLEEPING IN BEDSIDE CHAIR. AWAKENS EASILY TO VERBAL STIMULI, DIFFICULT TO UNDERSTAND BUT STATES NAME. TRACKS NURSE WHEN IN ROOM. SQUEEZES RIGHT HAND ON COMMAND, R WRIST IN RESTRAINT DUE TO PT PULLING AT LINES/ DOBHOFF. DOES NOT SQUEEZE LEFT HAND, GROSS MOVEMENT OF L HAND AND LEGS. ON NC @ 2-4LPM, HAS REMAINED OFF AIRVO FOR MOST OF EVENING, SATS >90%. DOBHOFF c TF INFUSING AT GOAL. ROONEY CATH DRAINING LIGHT YELLOW URINE. WILL MONITOR CLOSELY.
[2021-12-20 03:42] LABS: BASOPHILS ABSOLUTE AUTO 0.02 K/mm3 (0.00-0.23); BASOPHILS PERCENT AUTO 0 % (0-2); EOSINOPHILS ABSOLUTE AUTO 0.16 K/mm3 (0.00-0.68); EOSINOPHILS PERCENT AUTO 1 % (0-6); Hematocrit 26.5 % (37.0-53.0); Hemoglobin 8.8 g/dL (13.5-17.5); IMMATURE GRAN ABSOLUTE AUTO 0.31 K/mm3 (0.00-0.10); IMMATURE GRAN PERCENT AUTO 2 % (0-1); LYMPHOCYTES ABSOLUTE AUTO 1.64 K/mm3 (0.84-5.20); LYMPHOCYTES PERCENT AUTO 10 % (21-46); MONOCYTES ABSOLUTE AUTO 0.65 K/mm3 (0.16-1.47); MONOCYTES PERCENT AUTO 4 % (4-13); Mean Corpuscular HGB 30.9 pg (26.0-34.0); Mean Corpuscular HGB Conc 33.2 g/dL (31.5-36.5); Mean Corpuscular Volume 93 fL (80-100); Mean Platelet Volume 9.7 fL (9.1-12.4); NEUTROPHILS PERCENT AUTO 83 % (41-73); Platelet Count 223 K/mm3 (150-400); RDW Coefficient Variation 15.3 % (11.7-14.2); RDW Standard Deviation 51.6 fL (35.1-46.3); Red Blood Cell Count 2.85 M/mm3 (4.30-5.90); White Blood Cell Count 16.68 K/mm3 (4.00-11.30)
[2021-12-20 03:58] LABS: Albumin, Blood 1.9 g/dL (3.4-5.0); Anion Gap 4 mmol/L (6-16); Blood Urea Nitrogen 23 mg/dL (8-24); Bun/Creatinine Ratio 58.8 (12.0-20.0); CO2, Blood 31 mmol/L (21-32); Calcium, Blood 7.8 mg/dL (8.5-10.1); Chloride, Blood 102 mmol/L (98-108); Creatinine, Blood 0.39 mg/dL (0.60-1.20); Glomerular Filtration Rate 128 (60-); Glucose, Blood 144 mg/dL (70-99); Phosphorus, Blood 2.2 mg/dL (2.5-4.9); Potassium, Blood 3.5 mmol/L (3.5-5.5); Sodium, Blood 137 mmol/L (136-145)
--- NOTE | 2021-12-20 08:00 | NUR ---
PT AWAKE AND ALERT. TRACKING WITH EYES. NO MOVEMENT NOTED TO LEFT ARM. GROSS MOTOR MOVEMENT OF LEFT LOWER EXTREMITY NOTED. PT NOT FOLLOWING COMMANDS TO LEAD ELECTRICAL CONTROLS ENGINEER WITH THE RIGHT HAND OR TO WIGGLE THE TOES ON THE RIGHT FOOT. PT PULLING ON THE RIGHT WRIST RESTRAINT AND KICKING THE RIGHT LEG AT TIMES. ECG SHOWS ST WITH RATE 100-110'S. SBP 100-110'S. NO NOTED EDEMA. DP/PT PULSES PALPABLE. LUNGS COARSE TO UPPER LOBES AND DIMINISHED IN THE BASES. TRACH SITE CLEAR. TRACH SUCTION PRODUCTIVE OF MODERATE AMOUNT OF THICK, CARMONA SECRETIONS. SATS>90% ON AIRVO 40 LITERS/31% . PT TOLERATING DOBHOFF TUBE FEEDING AT GOAL RATE OF 40 ML/HR. PT HAD SMALL SMEAR OF BROWN STOOL. AM CARE, ORAL CARE, CATH/MELA CARE, LINEN CHANGE COMPLETED. SKIN DRY AND FLAKY, BUT NO NOTED SKIN BREAKDOWN. ROONEY TO BSD WITH ADEQUATE AMOUNT OF DARK, YELLOW URINE TO UROMETER. KPHOS 20 MMOL REPLETION INFUSING. ANTICIPATE INNER CANULA CHANGE, SPEAKING VALVE PLACEMENT, AND PT OOB TO CHAIR LATER THIS AM. PT SPOUSE SLEEPING. WILL UPDATE WHEN SHE AWAKENS.
--- NOTE | 2021-12-20 09:30 | NUR ---
TRACH CARE/INNER CANULA CHANGED BY RIZWAN DAVIS. SPEAKING VALVE PLACED AND NASAL CANULA @ 2 LITERS PLACED. SATS>90%
--- NOTE | 2021-12-20 10:00 | NUR ---
SPONGE BATH GIVEN, THEN PT UP TO CHAIR USING CEILING LIFT. PT APPEARS TO HAVE LEFT SIDED NEGLECT. PT HEAD IS TURNED TO THE RIGHT SIDE AND HE TENDS TO LIST TO THE RIGHT SIDE.
--- NOTE | 2021-12-20 12:00 | NUR ---
PT REPOSITIONED IN THE RECLINER CHAIR. PT REPORTS THAT HIS BACK IS HURTING-SCHEDULED ROXANOL GIVEN. VS STABLE. MAINTAINS SATS>90% ON 2 LITERS NASAL CANULA AND SPEAKING VALVE IN PLACE. PT VOICE IS JUST SLIGHTLY HOARSE, BUT OVER ALL GOOD VOICE QUALITY & STRONG COUGH NOTED. ANTICIPATE CT HEAD LATER TODAY.
--- NOTE | 2021-12-20 16:00 | NUR ---
PT TRANSPORTED TO CT OF THE HEAD-RN @ BEDSIDE-TOLERATED WELL. PT CONTINUES TO HAVE LEFT SIDED NEGLECT. PT NOT FOLLOWING COMMANDS AT THIS TIME. PT PULLING ON RIGHT WRIST RESTRAINT/REACHING FOR DOBHOFF. ECG CONTINUES ST WITH RATE 120'S. SBP 100'S. LUNGS REMAIN COARSE. PT COUGH IS STRONG AND HE HAS COUGHED OUT LARGE AMOUNTS OF THICK, YELLOW SECRETIONS FROM TRACH. SATS>90% ON 2 LITERS NASAL CANULA AND SPEAKING VALVE REMAINS IN PLACE. PT TOLERATING TF WELL. PT HAS HAD 2 SMEARS OF BROWN STOOL TODAY. SKIN IS VERY DRY AND FLAKY.
--- NOTE | 2021-12-20 17:40 | NUR ---
DR. HANNA UPDATED @ 1650. PT SATS>90% ON 2 LITERS NASAL CANULA AND SPEAKING VALVE IN PLACE AT THAT TIME. PT CHANGED TO PCU STATUS AND ORDER GIVEN TO CONTINUE SPEAKING VALVE AND O2 VIA NASAL CANULA OVERNIGHT TOLERATED. RN IN TO REPOSITION PT @ 1715 AND SHORTLY THERAFTER, PT TACHYPNEIC AND SATS DOWN TO 81%. DR. HANNA AND RYAN, RT SUMMONED TO BEDSIDE. PT PLACED ON AIRVO 40 LITERS AND FIO2 TITRATED UP TO 50% TO KEEP SATS>90%. TRACH SUCTION PRODUCTIVE OF A LARGE AMOUNT OF THICK, CARMONA SECRETIONS. SIS RESENDIZ OREDERED EVERY 6 HOURS SCHEDULED THROUGH THE NIGHT. RT GIVEN ORDERS AND PARAMETERS FOR VENT IF DYSPNEA AND HYPOXIA CONTINUES.
--- NOTE | 2021-12-20 19:45 | NUR ---
SHIFT ASSESSMENT ASSUMED CARE OF PT @ 1900. PT ALERT IN BED, TRACKING NURSE, MOUTHING INCOMPREHENSIBLE WORDS. WILL SQUEEZE R HAND, NO NOTICEABLE MOVEMENT OF L ARM. GROSS MOVEMENT OF LEGS. HR IN THE 130-140'S. PT APPEARED ANXIOUS. SUCTIONED TRACH WITH SCANT SECRETIONS, HR REMAINS 130-140'S. MEDICATED PT WITH 2MG PRN ATIVAN WITH GOOD RELIEF. PT NOW CALM, RESTING COMFORTABLY c HR N THE LOW 100'S. LS REMAIN COARSE, SMALL THICK SECRETIONS SUCTIONED VIA TRACH. HEATED HI FLOW VIA TRACH-40L/50% c SATS >95%. TF INFUSING @ GOAL, NO BM. ROONEY CATH DRAINING RACQUEL URINE. WILL MONITOR CLOSELY.
[2021-12-21 04:04] LABS: BASOPHILS ABSOLUTE AUTO 0.04 K/mm3 (0.00-0.23); BASOPHILS PERCENT AUTO 0 % (0-2); EOSINOPHILS ABSOLUTE AUTO 0.14 K/mm3 (0.00-0.68); EOSINOPHILS PERCENT AUTO 1 % (0-6); Hemoglobin 9.7 g/dL (13.5-17.5); IMMATURE GRAN PERCENT AUTO 2 % (0-1); LYMPHOCYTES ABSOLUTE AUTO 1.73 K/mm3 (0.84-5.20); LYMPHOCYTES PERCENT AUTO 10 % (21-46); MONOCYTES ABSOLUTE AUTO 0.76 K/mm3 (0.16-1.47); MONOCYTES PERCENT AUTO 4 % (4-13); Mean Corpuscular HGB 29.6 pg (26.0-34.0); Mean Corpuscular HGB Conc 32.3 g/dL (31.5-36.5); Mean Corpuscular Volume 92 fL (80-100); Mean Platelet Volume 9.9 fL (9.1-12.4); NEUTROPHILS PERCENT AUTO 83 % (41-73); Platelet Count 241 K/mm3 (150-400); RDW Coefficient Variation 15.2 % (11.7-14.2); RDW Standard Deviation 50.8 fL (35.1-46.3); Red Blood Cell Count 3.28 M/mm3 (4.30-5.90); White Blood Cell Count 17.87 K/mm3 (4.00-11.30)
[2021-12-21 04:21] LABS: Albumin, Blood 2.2 g/dL (3.4-5.0); Anion Gap 5 mmol/L (6-16); Blood Urea Nitrogen 24 mg/dL (8-24); Bun/Creatinine Ratio 60.8 (12.0-20.0); CO2, Blood 33 mmol/L (21-32); Calcium, Blood 8.2 mg/dL (8.5-10.1); Chloride, Blood 98 mmol/L (98-108); Glomerular Filtration Rate 127 (60-); Glucose, Blood 203 mg/dL (70-99); Magnesium, Blood 1.6 mg/dL (1.6-2.4); Phosphorus, Blood 2.6 mg/dL (2.5-4.9); Potassium, Blood 3.3 mmol/L (3.5-5.5); Sodium, Blood 136 mmol/L (136-145)
--- NOTE | 2021-12-21 07:00 | NUR ---
ASSUMED CARE PT LAYING IN BED. PT IS AWAKE AND LOOKING AROUND. A/O TO SELF AND FAMILY ONLY. FOLLOWING SIMPLE DIRECTIONS AT TIMES. OTHER TIMES PT DOES NOT RESPOND. ABLE TO SQUEEZE R HAND ON COMMAND. MOVES BLE SPONTANEOUSLY. NO MOVEMENT NOTED IN L ARM. ST 110s. SBP 90s/100s. TF PIVOT 1.5 40ML/HR. NS TKO. K+ REPLACEMENT INFUSING. ROONEY IN PLACE. PATENT AND DRAINING TO GRAVITY. AT BEDSIDE.
--- NOTE | 2021-12-21 11:51 | NUR ---
PT CHANGED FROM AIRVO TO 2L NC WITH SPEAKING VALVE. SATS GREATER THAN 90%. PT UP TO THE CHAIR WITH THE USE OF THE LIFT. PILLOWS POSITIONED UNDER BOTTOM AND SIDES TO SUPPORT PT TO SIT UPRIGHT.
--- NOTE | 2021-12-21 12:39 | NUR ---
REASSESSMENT PT REMAINS IN CHAIR ON 2L NC. LUNG SOUNDS COARSE W/ CRACKLES IN BASES. VSS. ABLE TO ASK PT IN [place] TO SQUEEZE THIS RN's HANDS. PT WAS ABLE TO SQUEEZE BILATERALLY. LEFT IS NOTABLY WEAKER THEN RIGHT. PT's ALSO ASKED PT TO PUSH DOWN/PULL BACK FEET AGAINST THIS RN's HANDS. PT WAS ABLE TO PUSH DOWN WITH EQUAL STREGTH. UNABLE TO PULL BACK. PT's COMMENTED THAT PT IS MORE CONFUSED TODAY AND IS 'RAMBLING'.
--- NOTE | 2021-12-21 16:15 | NUR ---
REASSESSMENT PT TRANSFERED FROM CHAIR TO BED. R FORARM REMOVED D/T LEAKING AND TENDERNESS. VSS. REMAINS ON 2L NC WITH SATS GREATER THEN 92%. VISITORS IN TO SEE PT.
--- NOTE | 2021-12-21 17:26 | NUR ---
POWERGLIDE POWERGLIDE PLACED D/T NEEDING A SECOND ACCESS. PT STARTED PULLING ON RESTRAINT TOWARDS HIS DOBHOFF AND HR WAS IN THE 130's. ATIVAN GIVEN D/T AGITATION AND ANXIETY.
--- NOTE | 2021-12-21 19:45 | NUR ---
ASSUMPTION OF CARE REPORT GIVEN AT THE BEDSIDE ON BRANDI. HE APPEARS TO BE SLEEPING IN BED WEARING A NASAL CANNULA AND A PASSYMUIR VALVE IN PLACE UNTIL 2100 THEN ONTO AIRVOW. PT IS RECEIVING EN. PT APPEARS DECONDITIONED AND HAS LEFT SIDED NEGLECT AND WEAKNESS DESPITE NEGATIVE CT. PT NOTED TO BE SINUS TACH ON THE MONITOR WITH SOFT, BUT ADEQUATE BLOOD PRESSURE. NO ACUTE DISTRESS NOTED. WILL REVIEW CHART AND CONTINUE TO MONITOR PT.
--- NOTE | 2021-12-22 00:30 | NUR ---
FOLLOW UP ASSESSMENT PT APPEARS ASLEEP IN BED. PT'S CAME TO STAY WITH HIM SHE HAS BEEN SINCE HE HAS BEEN IN ICU. PT IS TRACHED AND HAS BEEN USING HIS PASSY MUIRVALVE TO HELP HIM STRENGTHEN HIS THROAT AND MADE SOUNDS AND ATTEMPTS TO SPEAK. PT HAS BEEN NOTED TO BE TACHYCARDIC BUT THIS HAS BEEN AN ONGOING ISSUE WITH THIS PATIENT. BREATH SOUNDS DIMINISHED. PT HAS A ROONEY CATHETHER THAT IS PATENT AND SECURE DRAINING DARK URINE. PT IS RECEIVING EN NUTRITION VIA SMALL BORE FEEDING TUBE. PT IS BEING FED THIS WAY AND ALSO RECEIVED MEDS PER TUBE. BLOOD PRESSURE HAS BEEN SOFT BUT ADEQUATE.PT IMPROVING EVERY DAY WORKING WITH PHYSICAL THERAPY. PT TO BE TRANSFERRED TO [facility] SOON FOR MORE EXTENSIVE REHAB. WILL CONTNUE TO MONITOR.
[2021-12-22 04:10] LABS: BASOPHILS ABSOLUTE AUTO 0.03 K/mm3 (0.00-0.23); BASOPHILS PERCENT AUTO 0 % (0-2); EOSINOPHILS PERCENT AUTO 1 % (0-6); Hematocrit 26.8 % (37.0-53.0); Hemoglobin 8.7 g/dL (13.5-17.5); IMMATURE GRAN ABSOLUTE AUTO 0.34 K/mm3 (0.00-0.10); IMMATURE GRAN PERCENT AUTO 2 % (0-1); LYMPHOCYTES ABSOLUTE AUTO 1.53 K/mm3 (0.84-5.20); LYMPHOCYTES PERCENT AUTO 9 % (21-46); MONOCYTES ABSOLUTE AUTO 0.78 K/mm3 (0.16-1.47); MONOCYTES PERCENT AUTO 5 % (4-13); Mean Corpuscular HGB Conc 32.5 g/dL (31.5-36.5); Mean Corpuscular Volume 92 fL (80-100); Mean Platelet Volume 10.4 fL (9.1-12.4); NEUTROPHILS ABSOLUTE AUTO 13.71 K/mm3 (1.96-9.15); NEUTROPHILS PERCENT AUTO 83 % (41-73); Platelet Count 240 K/mm3 (150-400); RDW Coefficient Variation 15.2 % (11.7-14.2); RDW Standard Deviation 51.8 fL (35.1-46.3); White Blood Cell Count 16.59 K/mm3 (4.00-11.30)
[2021-12-22 04:32] LABS: Albumin/Globulin Ratio 0.6 (0.8-1.8); Bilirubin, Total 0.5 mg/dL (0.1-1.0); Bun/Creatinine Ratio 66.7 (12.0-20.0); Calcium, Blood 7.8 mg/dL (8.5-10.1); Creatinine, Blood 0.35 mg/dL (0.60-1.20); Globulin, Blood 3.2 g/dL (2.2-4.0); Potassium, Blood 3.9 mmol/L (3.5-5.5); Total Protein, Blood 5.2 g/dL (6.4-8.2)
--- NOTE | 2021-12-22 05:49 | NUR ---
SHIFT SUMMARY THIS PATIENT HAD AN UNEVENTFUL NIGHT. PT WORE PASSY BEULAH VALVE UNTIL AROUND 9PM. PT TOLERATED THIS WELL. PT WORE AIRVOW TO HIS TRACH THE REST OF THE NIGHT. PT VITALS WERE STABLE THROUGHOUT THE NIGHT. PT HAD NO FEVER, WOULD AWAKE SPONTANEOUSLY AND FOLLOW SOME COMANDS. PT GOAL TODAY IS TO BE [facility] TODAY IF THINGS GO PLANNED. WILL CONTINUE TO MONITOR.
--- NOTE | 2021-12-22 07:00 | NUR ---
ASSUME CARE: I have assumed care of this patient.
--- NOTE | 2021-12-22 10:19 | NUR ---
UPDATE: Vanessa watson [facility] provided update over the phone.
--- NOTE | 2021-12-22 18:14 | NUR ---
SHIFT SUMMARY: NEURO: pt awakens easily and attempts to communicate with RN through trach. he moves all extremities. up in chair for about five hours today. Pt worked with OT today. Right wrist restraint off for much of day, but replaced this evening as pt pulling at NG tube. CARDIAC: sinus tach, BP stable RESPIRATORY: trach collar on all day. Thick, white secretions suctioned from trach. Pt with good cough. Inner cannula replaced. GI/: small, liquid BM this morning. Hamlin draining clear, liquid urine. PSYCH/SOCIAL: spouse at bedside and supportive throught the morning.
--- NOTE | 2021-12-22 19:05 | NUR ---
Assumed care. Report received from deisy ASTORGA. Pt resting in bed ATT. On airvo via trach, settings: 20 L/min 30% Fi02. Dobhoff in place, R/nare. TF running at 40 ml/hr. PG in ALTHEA, IV in L/forearm. NS TKO. Hamlin catheter in place, draining to gravity. VS stable, no acute needs noted. Will continue to monitor.
[2021-12-23 03:47] LABS: BASOPHILS ABSOLUTE AUTO 0.06 K/mm3 (0.00-0.23); BASOPHILS PERCENT AUTO 0 % (0-2); EOSINOPHILS ABSOLUTE AUTO 0.47 K/mm3 (0.00-0.68); EOSINOPHILS PERCENT AUTO 3 % (0-6); Hematocrit 31.9 % (37.0-53.0); Hemoglobin 10.2 g/dL (13.5-17.5); IMMATURE GRAN ABSOLUTE AUTO 0.36 K/mm3 (0.00-0.10); IMMATURE GRAN PERCENT AUTO 2 % (0-1); LYMPHOCYTES ABSOLUTE AUTO 1.96 K/mm3 (0.84-5.20); LYMPHOCYTES PERCENT AUTO 11 % (21-46); MONOCYTES PERCENT AUTO 6 % (4-13); Mean Corpuscular HGB 29.8 pg (26.0-34.0); Mean Corpuscular Volume 93 fL (80-100); Mean Platelet Volume 9.6 fL (9.1-12.4); NEUTROPHILS ABSOLUTE AUTO 14.38 K/mm3 (1.96-9.15); NEUTROPHILS PERCENT AUTO 79 % (41-73); Platelet Count 237 K/mm3 (150-400); RDW Coefficient Variation 15.2 % (11.7-14.2); RDW Standard Deviation 52.5 fL (35.1-46.3); Red Blood Cell Count 3.42 M/mm3 (4.30-5.90); White Blood Cell Count 18.23 K/mm3 (4.00-11.30)
[2021-12-23 04:09] LABS: Albumin, Blood 2.1 g/dL (3.4-5.0); Albumin/Globulin Ratio 0.6 (0.8-1.8); Bilirubin, Total 0.5 mg/dL (0.1-1.0); Bun/Creatinine Ratio 57.4 (12.0-20.0); Creatinine, Blood 0.33 mg/dL (0.60-1.20); Globulin, Blood 3.4 g/dL (2.2-4.0); Magnesium, Blood 1.7 mg/dL (1.6-2.4); Potassium, Blood 4.1 mmol/L (3.5-5.5); Total Protein, Blood 5.5 g/dL (6.4-8.2)
--- NOTE | 2021-12-23 06:26 | NUR ---
Shift summary. Pt in bed throughout shift. On airvo via trach, 20 L/min, Fi02 titrated up and down according to 02 demands. As pt coughs or becomes anxious, sats decline but pt able to recover within 3-5 minutes. Heparin infusing at 15 units/kg/hr, NS tko. 550 mls urine out this shift. See assessments for further details. Will continue to monitor and report off to dayshift RN.
--- NOTE | 2021-12-23 08:20 | NUR ---
INITIAL ASSESSMENT PATIENT TRACKING NURSE THIS AM. PATIENT ORIENTED TO FAMILY/ . PATIENT NOT FOLLOWING COMMANDS THIS AM. PATIENT ABLE TO SLIGHTLY MOVE ALL EXTREMITIES BUT DOES APPEAR TO BE WEAKER ON L SIDE THAN R. PATIENT TAKEN OUT OF R WRIST RESTRAINT AND IMMEDIATELY TRIED TO PULL AT DOBHOFF AND AIRVO. PATIENT ASKED NOT TO PULL AT LINES/ CORDS; PATIENT IMMEDIATELY TRIED TO PULL AGAIN. PATIENT AFEBRILE. NO SIGNS OR COMPLAINTS OF PAIN THIS AM. PATIENT HAS 8.0 TRACH THAT IS ATTACHED TO AIRVO AT 20 L AND 33% FIO2. MODERATE AMOUNT OF THICK, CARMONA SECRETIONS BEING SUCTIONED FROM TRACH. LUNGS CLEAR IN UPPER LOBES, DIMINISHED IN LOWER LOBES. PATIENT IN ST, HR IN THE 120S. SBP IN THE 1-TEENS. DOBHOFF IN PLACE WITH TF INFUSING AT GOAL RATE OF 40 MLS/ HOUR WITH 30 ML WATER FLUSH Q2H. ROONEY DRAINING YELLOW COLORED URINE. HEALING SCABS AND SKIN TEARS NOTED. SKIN DRY AND PEELING ON HANDS AND FEET. NS TKO. AT BEDSIDE. BED LOW, CALL LIGHT IN REACH. WILL CONTINUE TO MONITOR PATIENT FREQUENTLY THROUGHOUT SHIFT.
--- NOTE | 2021-12-23 12:00 | NUR ---
PATIENT AFEBRILE. HR IN THE LOW 100S. SBP 1-TEENS TO 120S. PATIENT HAS SPEAKING VALVE ON TRACH AND IS ON 4 L NC TO NARES. PATIENT UP TO CHAIR WITH LIFT. NO SIGNS OF PAIN NOTED. CALL LIGHT IN REACH.
--- NOTE | 2021-12-23 16:00 | NUR ---
PATIENT AFEBRILE. HR 120S TO 130S. SBP 120S TO 140S. PATIENT DENIES PAIN. PATIENT MOVED BACK FROM CHAIR TO BED AND COMPLETE BED BATH PERFORMED. PATIENT ON 3 L NC THROUGH NARES NOW. NO OTHER ACUTE CHANGES TO NOTE ON AT THIS TIME. BED LOW, CALL LIGHT IN REACH. WILL CONTINUE TO MONITOR.
--- NOTE | 2021-12-23 18:38 | NUR ---
SHIFT SUMMARY PATIENT REMAINED ORIENTED TO . PATIENT FOLLOWED SIMPLE COMMANDS OCCASIONALLY THROUGHOUT SHIFT. PATIENT HAD SPEAKING VALVE IN MOST OF SHIFT AND WAS REALLY TRYING TO COMMUNICATE WITH FAMILY AND STAFF. SPEECH STILL VERY DIFFICULT TO UNDERSTAND BUT IS IMPROVING. PATIENT CONTINUES TO HAVE LIMITED ROM AND IS WEAK. PATIENT IS ABLE TO MOVE ALL EXTREMITIES, ALTHOUGH L SIDE APPEARS TO REMAIN WEAKER THAN LEFT. PATIENT REMAINED AFEBRILE. PATIENT HAD NO COMPLAINTS OR SIGNS OF PAIN THIS SHIFT. 8.[address]. PATIENT ON 3 L NC TO NARES CURRENTLY. PATIENT ON AIRVO AT 20 L AND 33% FIO2 THIS AM. PATIENT HAD MODERATE AMOUNT OF THICK, CARMONA SECRETIONS FROM TRACH. LUNGS REMAINED CLEAR IN UPPER LOBES AFTER SUCTIONING AND DIM IN LOWER LOBES. PATIENT REMAINED IN ST, HR LOW 100S TO 130S. SBP 80S TO 140S. DOBHOFF REMAINED IN PLACE WITH TF INFUSING AT GOAL RATE. PATIENT HAD SMALL BROWN SMEAR OF BM THIS AM. ROONEY DRAINED 1000 MLS OF DARK YELLOW URINE. NO CHANGES TO SKIN NOTED. PATIENT REPOSITIONED THROUGHOUT SHIFT. PATIENT UP TO CHAIR FOR SEVERAL HOURS. PATIENT HAD COMPLETE BED BATH. NS REMAINS TKO. PATIENT HAD 25 MM SODIUM PHOS THIS AM TO REPLACE AM PHOS LEVEL OF 2.0. OT AND PT WORKED WITH PATIENT THIS AM. BLOOD SUGARS 262 AND 183 TODAY; COVERAGE GIVEN EACH TIME. SHARED THAT PATIENT HAS ANXIETY AND DEPRESSION AND SHE THINKS THAT IS WHY HE DRINKS SO MUCH ALCOHOL. EFFEXOR ADDED TO EMAR AND WILL START TONIGHT TO SEE IF WILL HELP. TRANSPORT TO [facility] ARRANGED FOR 0900 IN THE MORNING. BED LOW, CALL LIGHT IN REACH. FAMILY AT BEDSIDE. WILL GIVE REPORT TO ONCOMING DOCUMENTATION SPEC NURSE SHORTLY.
[2021-12-23] MEDS ORDERED: VENL25 PO (18:49)
[2021-12-24 03:38] LABS: BASOPHILS ABSOLUTE AUTO 0.06 K/mm3 (0.00-0.23); BASOPHILS PERCENT AUTO 0 % (0-2); EOSINOPHILS ABSOLUTE AUTO 0.29 K/mm3 (0.00-0.68); EOSINOPHILS PERCENT AUTO 2 % (0-6); Hematocrit 28.9 % (37.0-53.0); Hemoglobin 9.3 g/dL (13.5-17.5); IMMATURE GRAN ABSOLUTE AUTO 0.25 K/mm3 (0.00-0.10); IMMATURE GRAN PERCENT AUTO 2 % (0-1); LYMPHOCYTES ABSOLUTE AUTO 1.58 K/mm3 (0.84-5.20); LYMPHOCYTES PERCENT AUTO 10 % (21-46); MONOCYTES ABSOLUTE AUTO 0.86 K/mm3 (0.16-1.47); MONOCYTES PERCENT AUTO 5 % (4-13); Mean Corpuscular HGB 29.9 pg (26.0-34.0); Mean Corpuscular HGB Conc 32.2 g/dL (31.5-36.5); Mean Corpuscular Volume 93 fL (80-100); Mean Platelet Volume 9.9 fL (9.1-12.4); NEUTROPHILS ABSOLUTE AUTO 12.77 K/mm3 (1.96-9.15); NEUTROPHILS PERCENT AUTO 81 % (41-73); Platelet Count 200 K/mm3 (150-400); RDW Coefficient Variation 14.6 % (11.7-14.2); RDW Standard Deviation 49.4 fL (35.1-46.3); Red Blood Cell Count 3.11 M/mm3 (4.30-5.90); White Blood Cell Count 15.81 K/mm3 (4.00-11.30)
[2021-12-24 04:01] LABS: Albumin, Blood 1.8 g/dL (3.4-5.0); Albumin/Globulin Ratio 0.6 (0.8-1.8); Bilirubin, Total 0.4 mg/dL (0.1-1.0); Bun/Creatinine Ratio 52.6 (12.0-20.0); Calcium, Blood 7.9 mg/dL (8.5-10.1); Creatinine, Blood 0.34 mg/dL (0.60-1.20); Globulin, Blood 3.1 g/dL (2.2-4.0); Magnesium, Blood 1.5 mg/dL (1.6-2.4); Phosphorus, Blood 2.1 mg/dL (2.5-4.9); Potassium, Blood 3.4 mmol/L (3.5-5.5); Total Protein, Blood 4.9 g/dL (6.4-8.2)
--- NOTE | 2021-12-24 06:28 | NUR ---
Shift summary. Pt in bed for shift, at bedside. On 02 via NC at 3 L/min. NS TKO infusing. Hamlin in place. No acute events overnight, VS stable throughout shift. See shift assessment for details. Will continue to monitor and report off to dayshift RN.
--- NOTE | 2021-12-24 10:19 | NUR ---
ASSUMED CARE/ D/C TO [facility] AT 0700. PT A/O TO SELF AND FAMILY. PT REMAINS ON 3L NC WITH SPEAKING VALVE IN PLACE. LUNG SOUNDS COARSE WITH DIM BASES. ST 100s. SBP 120s. PT IS TALKING WITH A SLURRED VOICE. ABLE TO UNDERSTAND A COUPLE OF WORDS. VSS. TF AT 40ML/HR. NS TKO. ELECTROLYTE REPLACEMENT INFUSING. ROONEY PATENT AND DRAINING TO GRAVITY. REPORT AND D/C PAPERWORK GIVEN TO TRANSPORT. PT BELONGINGS SENT W/ . D/C AT 0924. REPORT GIVEN TO GREG COYNE AT 1002 BY ERMA ASTORGA.
== END 2021-12-24 09:26 | DRG 4 ==
LOC: ER 09:40 → ICUW 12:17
PROVIDERS: Emergency Medicine; Family Medicine; Internal Medicine; Internal Medicine Critical Care Medicine; Nurse Practitioner Acute Care; Physician Assistant; ADMIT Hospitalist
PROC: 5A1955Z Respiratory Ventilation, Greater than 96 Consecutive Hours (ICD-10-PCS; 2021-11-13)
PROC: 3E033XZ Introduction of Vasopressor into Peripheral Vein, Percutaneous Approach (ICD-10-PCS; 2021-11-13)
PROC: 3E05329 Introduction of Other Anti-infective into Peripheral Artery, Percutaneous Approach (ICD-10-PCS; 2021-11-13)
PROC: 0BH18EZ Insertion of Endotracheal Airway into Trachea, Via Natural or Artificial Opening Endoscopic (ICD-10-PCS; 2021-11-13)
PROC: 06HY33Z Insertion of Infusion Device into Lower Vein, Percutaneous Approach (ICD-10-PCS; 2021-11-13)
PROC: 06H03DZ Insertion of Intraluminal Device into Inferior Vena Cava, Percutaneous Approach (ICD-10-PCS; 2021-11-26)
PROC: 0BJ08ZZ Inspection of Tracheobronchial Tree, Via Natural or Artificial Opening Endoscopic (ICD-10-PCS; principal; 2021-11-27)
PROC: 0B113F4 Bypass Trachea to Cutaneous with Tracheostomy Device, Percutaneous Approach (ICD-10-PCS; 2021-12-01)
PROC: 0B9D8ZX Drainage of Right Middle Lung Lobe, Via Natural or Artificial Opening Endoscopic, Diagnostic (ICD-10-PCS; 2021-12-01)
PROC: 30233N1 Transfusion of Nonautologous Red Blood Cells into Peripheral Vein, Percutaneous Approach (ICD-10-PCS; 2021-12-02)
DX: A40.3 Sepsis due to Streptococcus pneumoniae (principal); A41.51 Sepsis due to Escherichia coli [E. coli]; G92.8 Other toxic encephalopathy; J69.0 Pneumonitis due to inhalation of food and vomit; J96.01 Acute respiratory failure with hypoxia; R65.21 Severe sepsis with septic shock; J15.5 Pneumonia due to Escherichia coli; I33.0 Acute and subacute infective endocarditis; G62.81 Critical illness polyneuropathy; Z16.24 Resistance to multiple antibiotics; E87.1 Hypo-osmolality and hyponatremia; I82.411 Acute embolism and thrombosis of right femoral vein; D64.9 Anemia, unspecified; F10.20 Alcohol dependence, uncomplicated; K80.20 Calculus of gallbladder without cholecystitis without obstruction; E11.42 Type 2 diabetes mellitus with diabetic polyneuropathy; K21.9 Gastro-esophageal reflux disease without esophagitis; E87.6 Hypokalemia; E83.42 Hypomagnesemia; E11.65 Type 2 diabetes mellitus with hyperglycemia; J32.9 Chronic sinusitis, unspecified; K75.81 Nonalcoholic steatohepatitis (NASH); D69.6 Thrombocytopenia, unspecified; F41.9 Anxiety disorder, unspecified; F32.A Depression, unspecified; Z79.84 Long term (current) use of oral hypoglycemic drugs; Z79.899 Other long term (current) drug therapy; Z20.822 Contact with and (suspected) exposure to COVID-19; K59.09 Other constipation; E83.39 Other disorders of phosphorus metabolism
CPT/HCPCS: 0241U; 31500; 36415; 36430; 36569; 36600; 37191; 51702; 70450; 71045; 71046; 71260; 71275; 76705; 76775; 76937; 80048; 80053; 80069; 80076; 80202; 81001; 81003; 82010; 82248; 82330; 82728; 82800; 82803; 82947; 83540; 83550; 83605; 83690; 83735; 83880; 84100; 84132; 84145; 84478; 84484; 85025; 85027; 85045; 85379; 85520; 85610; 85730; 86850; 86900; 86901; 86923; 87040; 87070; 87077; 87086; 87106; 87186; 87205; 87449; 87493; 88108; 93005; 93010; 93306; 93308; 93312; 93321; 93325; 93970; 94002; 94003; 94640; 94664; 94667; 94668; 94760; 94762; 96365-59; 96375-59; 97110; 97163; 97166; 97530; 99152; 99291-25; A9270; C1751; C1769; C1880; C9113; G0480; J0290; J0330; J0456; J0610; J0696; J1200; J1644; J1650; J1815; J1940; J2060; J2185; J2250; J2405; J2543; J2550; J2700; J2704; J2765; J2920; J2997; J3010; J3370; J3475; J3480; J7030; J7040; J7050; J7060; J7120; J7512; P9016; P9047; Q9967

== ENCOUNTER → 2022-03-11 | Outpatient (CLI) | payer OTHER ==
[~2022-03-11] MED LIST changes: +VENL25 PO
== END ==
LOC: LAB 14:15 → LAB SHORT 14:15
DX: R30.0 Dysuria (principal)
CPT/HCPCS: 87077; 87086; 87186

== ENCOUNTER → 2022-07-05 | Outpatient (CLI) | payer OTHER ==
[2022-07-05 15:19] LABS: BASOPHILS ABSOLUTE AUTO 0.04 K/mm3 (0.00-0.23); BASOPHILS PERCENT AUTO 0 % (0-2); EOSINOPHILS ABSOLUTE AUTO 0.03 K/mm3 (0.00-0.68); EOSINOPHILS PERCENT AUTO 0 % (0-6); Hematocrit 33.6 % (37.0-53.0); Hemoglobin 11.8 g/dL (13.5-17.5); IMMATURE GRAN ABSOLUTE AUTO 0.04 K/mm3 (0.00-0.10); IMMATURE GRAN PERCENT AUTO 0 % (0-1); LYMPHOCYTES ABSOLUTE AUTO 2.37 K/mm3 (0.84-5.20); LYMPHOCYTES PERCENT AUTO 23 % (21-46); MONOCYTES ABSOLUTE AUTO 1.05 K/mm3 (0.16-1.47); MONOCYTES PERCENT AUTO 10 % (4-13); Mean Corpuscular HGB 30.2 pg (26.0-34.0); Mean Corpuscular HGB Conc 35.1 g/dL (31.5-36.5); Mean Corpuscular Volume 86 fL (80-100); Mean Platelet Volume 9.3 fL (9.1-12.4); NEUTROPHILS ABSOLUTE AUTO 6.89 K/mm3 (1.96-9.15); NEUTROPHILS PERCENT AUTO 66 % (41-73); Platelet Count 143 K/mm3 (150-400); RDW Coefficient Variation 13.4 % (11.7-14.2); RDW Standard Deviation 41.4 fL (35.1-46.3); Red Blood Cell Count 3.91 M/mm3 (4.30-5.90); White Blood Cell Count 10.42 K/mm3 (4.00-11.30)
[2022-07-05 15:32] LABS: Albumin, Blood 3.9 g/dL (3.4-5.0); Albumin/Globulin Ratio 1.2 (0.8-1.8); Bilirubin, Total 0.6 mg/dL (0.1-1.0); Calcium, Blood 8.8 mg/dL (8.5-10.1); Creatinine, Blood 1.31 mg/dL (0.60-1.20); Globulin, Blood 3.2 g/dL (2.2-4.0); Potassium, Blood 3.8 mmol/L (3.5-5.5); Total Protein, Blood 7.1 g/dL (6.4-8.2)
== END | disposition home or self-care (01) ==
LOC: LAB SHORT 15:15
PROVIDERS: Physician Assistant
DX: R06.00 Dyspnea, unspecified (principal); H53.9 Unspecified visual disturbance; Z86.718 Personal history of other venous thrombosis and embolism
CPT/HCPCS: 80053; 84484; 85025; 85379

== ENCOUNTER 2024-06-22 15:33 | Emergency (ER) | payer MEDICARE, MEDICAID ==
[~2024-06-22] VITALS: Ht 160 cm; Wt 70.3 kg
[2024-06-22 16:09] LABS: BASOPHILS ABSOLUTE AUTO 0.12 K/mm3 (0.00-0.23); BASOPHILS PERCENT AUTO 1 % (0-2); EOSINOPHILS ABSOLUTE AUTO 1.23 K/mm3 (0.00-0.68); EOSINOPHILS PERCENT AUTO 15 % (0-6); Hemoglobin 14.6 g/dL (13.5-17.5); IMMATURE GRAN ABSOLUTE AUTO 0.12 K/mm3 (0.00-0.10); IMMATURE GRAN PERCENT AUTO 1 % (0-1); LYMPHOCYTES ABSOLUTE AUTO 3.08 K/mm3 (0.84-5.20); LYMPHOCYTES PERCENT AUTO 37 % (21-46); MONOCYTES ABSOLUTE AUTO 1.35 K/mm3 (0.16-1.47); MONOCYTES PERCENT AUTO 16 % (4-13); Mean Corpuscular HGB 33.2 pg (26.0-34.0); Mean Corpuscular Volume 98 fL (80-100); Mean Platelet Volume 8.7 fL (9.1-12.4); NEUTROPHILS ABSOLUTE AUTO 2.39 K/mm3 (1.96-9.15); NEUTROPHILS PERCENT AUTO 29 % (41-73); Platelet Count 155 K/mm3 (150-400); RDW Coefficient Variation 14.1 % (11.7-14.2); RDW Standard Deviation 50.6 fL (35.1-46.3); White Blood Cell Count 8.29 K/mm3 (4.00-11.30)
[2024-06-22 17:08] LABS: Albumin, Blood 2.7 g/dL (3.4-5.0); Albumin/Globulin Ratio 0.9 (0.8-1.8); Bilirubin, Total 0.6 mg/dL (0.1-1.0); C-Reactive Protein, High Sens. 9.74 mg/dL (0.000-3.000); Calcium, Blood 8.2 mg/dL (8.5-10.1); Creatinine, Blood 1.12 mg/dL (0.60-1.20); Total Protein, Blood 5.7 g/dL (6.4-8.2)
[2024-06-22] MEDS ORDERED: BETA.05TCA TOP (18:04)
[2024-06-22] MEDS ORDERED: HYDHCL25 PO (18:04)
[2024-06-22 18:22] VITALS: BP 154/98
== END 2024-06-22 18:24 | disposition home or self-care (01) ==
LOC: ER 15:33
PROVIDERS: Emergency Medicine
DX: L20.9 Atopic dermatitis, unspecified (principal); E11.9 Type 2 diabetes mellitus without complications; F17.210 Nicotine dependence, cigarettes, uncomplicated; Z79.899 Other long term (current) drug therapy; Z79.84 Long term (current) use of oral hypoglycemic drugs
CPT/HCPCS: 80053; 85025; 85651; 86141; 99283

== ENCOUNTER 2024-07-18 16:48 | Emergency (ER) | payer MEDICARE, MEDICAID ==
[~2024-07-18] VITALS: Ht 162.6 cm; Wt 63.5 kg
[~2024-07-18 16:48] MED LIST changes: +BETA.05TCA TOP; +HYDHCL25 PO
[2024-07-18] MEDS ORDERED: Folic Acid 1 MG TAB PO ONE (17:45)
[2024-07-18] MEDS ORDERED: Thiamine HCl 100 MG Tab PO ONE (17:45)
[2024-07-18] MEDS ORDERED: LORazepam 2 MG/ML 1ML Injection IV ONE ×3 (17:45→21:25)
[2024-07-18 18:14] LABS: BASOPHILS ABSOLUTE AUTO 0.12 K/mm3 (0.00-0.23); BASOPHILS PERCENT AUTO 2 % (0-2); EOSINOPHILS ABSOLUTE AUTO 0.92 K/mm3 (0.00-0.68); EOSINOPHILS PERCENT AUTO 13 % (0-6); Hemoglobin 13.6 g/dL (13.5-17.5); IMMATURE GRAN ABSOLUTE AUTO 0.05 K/mm3 (0.00-0.10); IMMATURE GRAN PERCENT AUTO 1 % (0-1); LYMPHOCYTES PERCENT AUTO 24 % (21-46); MONOCYTES ABSOLUTE AUTO 0.58 K/mm3 (0.16-1.47); MONOCYTES PERCENT AUTO 8 % (4-13); Mean Corpuscular HGB 33.3 pg (26.0-34.0); Mean Corpuscular HGB Conc 34.9 g/dL (31.5-36.5); Mean Corpuscular Volume 96 fL (80-100); NEUTROPHILS ABSOLUTE AUTO 3.73 K/mm3 (1.96-9.15); NEUTROPHILS PERCENT AUTO 53 % (41-73); Platelet Count 61 K/mm3 (150-400); RDW Coefficient Variation 13.2 % (11.7-14.2); RDW Standard Deviation 46.8 fL (35.1-46.3); Red Blood Cell Count 4.08 M/mm3 (4.30-5.90)
[2024-07-18 18:47] LABS: Albumin, Blood 3.2 g/dL (3.4-5.0); Albumin/Globulin Ratio 1.1 (0.8-1.8); Bilirubin, Total 0.4 mg/dL (0.1-1.0); Bun/Creatinine Ratio 9.3 (12.0-20.0); Calcium, Blood 8.2 mg/dL (8.5-10.1); Creatinine, Blood 0.86 mg/dL (0.60-1.20); Potassium, Blood 3.6 mmol/L (3.5-5.5); Total Protein, Blood 6.2 g/dL (6.4-8.2)
[2024-07-18] MEDS ORDERED: dexmedeTOMIDine 100 ML IV SCH (19:00)
[2024-07-18 19:32] LABS: Prothrombin Time Results 10.7 Sec (9.7-11.5)
[2024-07-18 21:33] VITALS: BP 160/93
== END 2024-07-18 21:33 | disposition short-term general hospital (02) ==
LOC: ER 16:48
PROVIDERS: Emergency Medicine
DX: S06.5X0A Traumatic subdural hemorrhage without loss of consciousness, initial encounter (principal); F10.239 Alcohol dependence with withdrawal, unspecified; G93.41 Metabolic encephalopathy; D69.6 Thrombocytopenia, unspecified; E11.9 Type 2 diabetes mellitus without complications; Z87.891 Personal history of nicotine dependence; W19.XXXA Unspecified fall, initial encounter
CPT/HCPCS: 70450; 80053; 82607; 82746; 85025; 85610; 85730; 93005; 93010; 96374; 96376; 99285-25; A9270; J2060

== ENCOUNTER → 2024-09-08 | Outpatient (CLI) | payer MEDICARE ==
[2024-09-08 19:53] LABS: Iron Serum 105 ug/dL (65-175); Percent Saturation 35.7 % (20.0-50.0); Total Iron Binding Capacity 294 ug/dL (250-450)
[2024-09-11 14:56] LABS: HEPATITIS C AB CIA INTERP Negative (Negative); HEPATITIS C ANTIBODY CIA INDEX 0.07 IV
[2024-09-11 18:10] LABS: HIV 1,2 COMBO ANTIGEN/ANTIBODY Negative (Negative)
== END | disposition home or self-care (01) ==
LOC: LAB 18:52 → LAB SHORT 18:52
PROVIDERS: Nurse Practitioner Family
DX: Z12.5 Encounter for screening for malignant neoplasm of prostate (principal); Z11.4 Encounter for screening for human immunodeficiency virus [HIV]; Z11.59 Encounter for screening for other viral diseases; E11.42 Type 2 diabetes mellitus with diabetic polyneuropathy; E46 Unspecified protein-calorie malnutrition
CPT/HCPCS: 83036; 83540; 83550; 86803; 87389; G0103